=== PATIENT | female | born 1975 | race Caucasian/White ===

== ENCOUNTER 2018-06-29 19:36 | Emergency (ER) | payer OTHER ==
[~2018-06-29] VITALS: Ht 165.1 cm; Wt 81.6 kg
--- OUTSIDE RECORDS SUMMARY | 2018-06-29 19:39 | XMS REPORT | Continuity of Care Document ---
Author Author [facility] Interface Address Unknown Phone Unavailable Problems Problem Status Onset Date Classification Date Reported Comments Source Calculus of ureter 05/07/2017 08/06/2017 [facility] Cyclical vomiting, not intractable 05/01/2017 07/31/2017 [facility] INTRACTABLE VOMITING, UTI Active 04/27/2017 [facility] URINARY PAIN Active 04/27/2017 [facility] Intervertebral disc disorders with radiculopathy, lumbosacral region 04/10/2017 07/13/2017 [facility] INTRACTABLE NAUSEA AND VOMITING Active 04/02/2017 [facility] VOMITING Active 04/02/2017 [facility] CP Active 04/24/2016 [facility] ABDOMINAL PAIN Active 07/16/2014 [facility] Urinary tract infection, site not specified 08/06/2017 [facility] Kidney stone Resolved Problem 08/06/2017 [facility] Stent replacement Resolved Problem 08/06/2017 [facility] Cannabis use, unspecified, uncomplicated 07/13/2017 [facility] Essential hypertension 07/13/2017 [facility] Muscle spasm of back 07/13/2017 [facility] Personal history of nicotine dependence 07/13/2017 [facility] Blood clot Resolved Problem 07/20/2014 [facility] Other specified disorders of bladder 08/06/2017 [facility] Noninfective gastroenteritis and colitis, unspecified 08/06/2017 [facility] Crossing vessel and stricture of ureter without hydronephrosis 08/06/2017 [facility] Unspecified urinary incontinence 08/06/2017 [facility] URINARY TRACT INFECTION, SITE NOT SPECIF Active [facility] NAUSEA WITH VOMITING, UNSPECIFIED Active [facility] Medications Medication Details Route Status Patient Instructions Ordering Provider Order Date Source oxybutynin 5 mg oral tablet 5 mg=1 tab, PO, TID, PRN Bladder Spasm, # 15 tab, 0 Refill(s), Pharmacy: [facility] [id number] Active 04/30/2017 [facility] Dilaudid 1 mg, 1 mL, Route: IVP, Drug form: SOLN, ONCE, Dosing Weight 90.909, kg, Start date: 04/30/17 13:56:00 PREPRESS MANAGER, Stop date: 04/30/17 13:56:00 CSTNotes: (Same as: Dilaudid) Inactive 04/30/2017 [facility] Dilaudid 1 mg, Route: IVP, ONCE, Dosing Weight 90.909, kg, Priority: STAT, Start date: 04/30/17 13:54:00 PREPRESS MANAGER, Stop date: 04/30/17 13:54:00 PREPRESS MANAGER Inactive 04/30/2017 [facility] ketOROLAC 30 mg/mL injectable solution 30 mg, 1 mL, Route: IVP, Drug form: INJ, ONCE, Dosing Weight 90.909, kg, Priority: STAT, Start date: 04/30/17 13:54:00 PREPRESS MANAGER, Stop date: 04/30/17 13:54:00 CSTNotes: (Same as:Toradol) IV bolus must be given >15 seconds. Give IM administration slowly and deeply into the muscle. Not for use > 4 days MEDICATION WASTE Product Size: 30 mg Product Wasted: ___ mg Inactive 04/30/2017 [facility] Morphine 4 mg, 1 mL, Route: IVP, Drug form: SOLN, ONCE, Dosing Weight 90.909, kg, Priority: STAT, Start date: 04/30/17 10:01:00 PREPRESS MANAGER, Stop date: 04/30/17 10:01:00 CSTNotes: (Same as:MORPhine Sulfate) Inactive 04/30/2017 [facility] Zofran 4 mg, 2 mL, Route: IVP, Drug form: INJ, ONCE, Dosing Weight 90.909, kg, PRN Nausea, Priority: STAT, Start date: 04/30/17 10:01:00 CSTNotes: (Same as: Zofran) MEDICATION WASTE Product Size: 4 mg Product Wasted: ___ mg Inactive 04/30/2017 [facility] Potassium Chloride 1.33 MEQ/ML Oral Solution 40 mEq, 2 tab, Route: PO, Drug form: ERTAB, ONCE, Dosing Weight 90.909, kg, Priority: NOW, Start date: 04/30/17 7:49:00 PREPRESS MANAGER, Stop date: 04/30/17 7:49:00 CSTNotes: (Same as: K-Dur 20) "Do Not Crush" With food and full glass of water Inactive 04/30/2017 [facility] morphine Sulfate 12 mg, 6 mL, Route: PO, Drug form: SOLN, Q4H, PRN Pain Score 7-10, Start date: 04/29/17 16:37:00 PREPRESS MANAGER, Stop date: 05/29/17 16:36:00 CDTNotes: (Same as:MORPhine Sulfate) No Longer Active 04/29/2017 [facility] morphine Sulfate 12 mg, 6 mL, Route: PO, Drug form: SOLN, Q4H, PRN Pain Score 4-6, Start date: 04/29/17 14:29:00 PREPRESS MANAGER, Duration: 30 day, Stop date: 05/29/17 14:28:00 CDTNotes: (Same as:MORPhine Sulfate) Inactive 04/29/2017 [facility] Morphine 4 mg, 1 mL, Route: IVP, Drug form: SOLN, ONCE, Dosing Weight 90.909, kg, Priority: STAT, Start date: 04/29/17 14:24:00 PREPRESS MANAGER, Stop date: 04/29/17 14:24:00 CSTNotes: (Same as:MORPhine Sulfate) Inactive 04/29/2017 [facility] Fentanyl 50 microgram, Route: IV, Q5Min, Dosing Weight 90.909, kg, PRN Pain Score 7-10, Start date: 04/29/17 13:39:00 PREPRESS MANAGER, Duration: 4 doses or times, Stop date: Limited # of times Inactive 04/29/2017 [facility] Ondansetron 4 mg, Route: IVP, ONCE, Dosing Weight 90.909, kg, PRN Nausea & Vomiting, Start date: 04/29/17 13:38:00 PREPRESS MANAGER Inactive 04/29/2017 [facility] Flumazenil 0.2 mg, Route: IVP, PRN, Dosing Weight 90.909, kg, PRN Benzodiazepine Reversal, Initial dose, Start date: 04/29/17 13:38:00 PREPRESS MANAGER, Duration: 30 day, Stop date: 05/29/17 14:37:00 CDT Inactive 04/29/2017 [facility] Naloxone 0.4 mg, Route: IVP, Q2MIN, Dosing Weight 90.909, kg, PRN Narcotic Reversal, Start date: 04/29/17 13:38:00 PREPRESS MANAGER, Duration: 8 doses or times, Stop date: Limited # of times Inactive 04/29/2017 [facility] Fentanyl 25 microgram, Route: IVP, Q5Min, Dosing Weight 90.909, kg, PRN Pain Score 4-6, Priority: Routine, Start date: 04/29/17 13:38:00 PREPRESS MANAGER, Duration: 4 doses or times, Stop date: Limited # of times Inactive 04/29/2017 [facility] Labetalol 10 mg, Route: IVP, Q5Min, Dosing Weight 90.909, kg, PRN Elevated BP, Start date: 04/29/17 13:38:00 PREPRESS MANAGER, Duration: 5 doses or times, Stop date: Limited # of times Inactive 04/29/2017 [facility] Calcium Chloride 0.0014 MEQ/ML / Potassium Chloride 0.004 MEQ/ML / Sodium Chloride 0.103 MEQ/ML / Sodium Lactate 0.028 MEQ/ML Injectable Solution 1,000 mL, Rate: 100 ml/hr, Infuse over: 10 hr, Route: IV, Dosing Weight 90.909 kg, Total Volume: 1,000, Start date: 04/29/17 13:19:00 PREPRESS MANAGER, Duration: 30 day, Stop date: 05/29/17 13:18:00 CDT, 2.07, m2 No Longer Active 04/29/2017 [facility] oxybutynin 5 mg, 1 tab, Route: PO, Drug form: TAB, TID, Dosing Weight 90.909, kg, PRN Bladder Spasm, Start date: 04/29/17 13:19:00 PREPRESS MANAGER, Duration: 30 day, Stop date: 05/29/17 13:18:00 CDTNotes: Same as: Ditropan) No Longer Active 04/29/2017 [facility] Hydromorphone 1 mg, 0.5 tab, Route: PO, Drug form: TAB, Q3H, Dosing Weight 90.909, kg, PRN Pain Score 7-10, Start date: 04/29/17 13:19:00 PREPRESS MANAGER, Stop date: 05/29/17 13:18:00 CDTNotes: (Same as: Dilaudid) No Longer Active 04/29/2017 [facility] Acetaminophen 650 mg, 2 tab, Route: PO, Drug form: TAB, Q4H, Dosing Weight 90.909, kg, PRN Pain 1-3/Temp > 100.4 F, Start date: 04/29/17 13:19:00 PREPRESS MANAGER, Duration: 30 day, Stop date: 05/29/17 13:18:00 CDTNotes: Do not exceed 4 gm/day. (Same as: Tylenol) No Longer Active 04/29/2017 [facility] acetaminophen-codeine #3 2 tab, Route: PO, Drug Form: TAB, Dosing Weight 90.909, kg, Q4H, PRN Pain Score 4-6, Start date: 04/29/17 13:19:00 PREPRESS MANAGER, Duration: 30 day, Stop date: 05/29/17 13:18:00 CDTNotes: Do not exceed 4gm/day of acetaminophen. (Same as: Tylenol with Codeine # 3) No Longer Active 04/29/2017 [facility] Ondansetron 4 mg, 2 mL, Route: IVP, Drug form: INJ, Q6H, Dosing Weight 90.909, kg, PRN Nausea & Vomiting, Start date: 04/29/17 13:19:00 PREPRESS MANAGER, Duration: 30 day, Stop date: 05/29/17 13:18:00 CDTNotes: (Same as: Zofran) MEDICATION WASTE Product Size: 4 mg Product Wasted: ___ mg No Longer Active 04/29/2017 [facility] dexamethasone (ANES) Route: IV, Drug form: INJ, ONCE, Stop date: 04/29/17 13:13:00 PREPRESS MANAGER Inactive 04/29/2017 [facility] ondansetron (ANES) Route: IV, Drug form: INJ, ONCE, Stop date: 04/29/17 13:13:00 PREPRESS MANAGER Inactive 04/29/2017 [facility] lidocaine (ANES) Route: IV, Drug form: INJ, ONCE, Stop date: 04/29/17 13:03:00 PREPRESS MANAGER Inactive 04/29/2017 [facility] propofol (ANES) Route: IV, Drug form: INJ, ONCE, Stop date: 04/29/17 13:03:00 PREPRESS MANAGER Inactive 04/29/2017 [facility] fentaNYL (ANES) Route: IV, Drug form: INJ, ONCE, Stop date: 04/29/17 13:03:00 PREPRESS MANAGER Inactive 04/29/2017 [facility] midazolam (ANES) Route: IV, Drug form: SOLN, ONCE, Stop date: 04/29/17 13:03:00 PREPRESS MANAGER Inactive 04/29/2017 [facility] Calcium Chloride 0.0014 MEQ/ML / Potassium Chloride 0.004 MEQ/ML / Sodium Chloride 0.103 MEQ/ML / Sodium Lactate 0.028 MEQ/ML Injectable Solution 1,000 mL, Rate: 25 ml/hr, Infuse over: 40 hr, Route: IV, Dosing Weight 90.909 kg, Total Volume: 1,000, Start date: 04/29/17 12:18:00 PREPRESS MANAGER, Duration: 30 day, Stop date: 05/29/17 12:17:00 CDT, 2.07, m2 Inactive 04/29/2017 [facility] Lactated Ringers Injection IV (ANES) 1000 mL Route: IV, Total Volume: 1,000, Start date: 04/29/17 12:15:00 PREPRESS MANAGER, Stop date: 04/29/17 13:15:00 PREPRESS MANAGER Inactive 04/29/2017 [facility] Lactated Ringers IV 1000 mL 1,000 mL, Rate: 40 ml/hr, Infuse over: 25 hr, Route: IV, Dosing Weight 90.909 kg, Total Volume: 1,000, Start date: 04/29/17 12:15:00 PREPRESS MANAGER, Duration: 30 day, Stop date: 05/29/17 12:14:00 CDT, 2.07, m2 Inactive 04/29/2017 [facility] 200 ML Ciprofloxacin 2 MG/ML Injection [Cipro] 400 mg, 200 mL, Route: IVPB, Drug form: INJ, [id number], Dosing Weight 90.909, kg, Start date: 04/29/17 11:00:00 PREPRESS MANAGER, Duration: 1 day, Stop date: 04/29/17 23:00:00 PREPRESS MANAGER, ABX Indication: Surgical ProphylaxisNotes: Do not refrigerate Inactive 04/29/2017 [facility] Rocephin + sterile water 10 mL 1 gm, Route: IV, [id number], Dosing Weight 90.909, kg, Start date: 04/29/17 8:00:00 PREPRESS MANAGER, Duration: 10 day, Stop date: 05/08/17 8:00:00 PREPRESS MANAGER, ABX Indication: Infectious DiarrheaNotes: (Same As: Rocephin). Use with 100 mL NS and infuse over 30 min MEDICATION WASTE Product Size: 1000 mg Product Wasted: ___ mg No Longer Active 04/29/2017 [facility] Potassium Chloride 10 mEq, 5 mL, Route: IVPB, Q1H, Dosing Weight 90.909, kg, Total Dose=40 mEq; Peripheral Line, Start date: 04/28/17 13:00:00 PREPRESS MANAGER, Duration: 4 doses or times, Stop date: 04/28/17 16:00:00 CSTNotes: MUST be Diluted before use (Same as: KCl) MEDICATION WASTE Product Size: 40 mEq Product Wasted: ___ mEq Inactive 04/28/2017 [facility] Zofran 4 mg, 2 mL, Route: IVP, Drug form: INJ, Q4H, Dosing Weight 90.909, kg, PRN Nausea, Start date: 04/28/17 9:01:00 PREPRESS MANAGER, Duration: 30 day, Stop date: 05/28/17 9:00:00 CDTNotes: (Same as: Zofran) MEDICATION WASTE Product Size: 4 mg Product Wasted: ___ mg No Longer Active 04/28/2017 [facility] Docusate 100 mg, 1 cap, Route: PO, Drug form: CAP, BID, Dosing Weight 90.909, kg, Start date: 04/28/17 9:00:00 PREPRESS MANAGER, Duration: 30 day, Stop date: 05/27/17 17:00:00 CDTNotes: (Same as: Colace) (Do Not Crush) No Longer Active 04/28/2017 [facility] Potassium Chloride 10 mEq, 5 mL, Route: IVPB, Q1H, Dosing Weight 90.909, kg, Total Dose=20 meq, Start date: 04/28/17 7:00:00 PREPRESS MANAGER, Duration: 2 doses or times, Stop date: 04/28/17 8:00:00 PREPRESS MANAGER, Peripheral LineNotes: MUST be Diluted before use (Same as: KCl) MEDICATION WASTE Product Size: 40 mEq Product Wasted: ___ mEq Inactive 04/28/2017 [facility] Flagyl 500 mg, 100 mL, Route: IVPB, Drug form: INJ, [id number], Dosing Weight 90.909, kg, Start date: 04/28/17 7:00:00 PREPRESS MANAGER, Duration: 10 day, Stop date: 05/07/17 23:00:00 PREPRESS MANAGER, ABX Indication: Infectious DiarrheaNotes: (Same as: Flagyl) Avoid alcohol. No Longer Active 04/28/2017 [facility] Rocephin 1 gm, Route: IV, [id number], Dosing Weight 90.909, kg, Start date: 04/28/17 7:00:00 PREPRESS MANAGER, Duration: 10 day, Stop date: 05/07/17 7:00:00 PREPRESS MANAGER, ABX Indication: Infectious DiarrheaNotes: (Same As: Rocephin). Use with 100 mL NS and infuse over 30 min MEDICATION WASTE Product Size: 1000 mg Product Wasted: ___ mg Inactive 04/28/2017 [facility] Acetaminophen 325 MG / Hydrocodone Bitartrate 5 MG Oral Tablet 2 tab, Route: PO, Drug Form: TAB, Dosing Weight 90.909, kg, Q4H, PRN Pain Score 7-10, Start date: 04/28/17 6:35:00 PREPRESS MANAGER, Duration: 30 day, Stop date: 05/28/17 6:34:00 CDTNotes: (Same as: [place] 325/5) Do not exceed 4gm/day of acetaminophen. No Longer Active 04/28/2017 [facility] Saline Flush 0.9% 10 ml, Route: IVP, Drug Form: INJ, Dosing Weight 90.909, kg, PRN, PRN Line Flush, Start date: 04/28/17 6:35:00 PREPRESS MANAGER, Duration: 30 day, Stop date: 05/28/17 7:34:00 CDTNotes: (Same as: BD Posiflush) No Longer Active 04/28/2017 [facility] Sodium Chloride 0.9% IV 1,000 mL 1,000 mL, Rate: 125 ml/hr, Infuse over: 8 hr, Route: IV, Dosing Weight 90.909 kg, Total Volume: 1,000, Start date: 04/28/17 6:35:00 PREPRESS MANAGER, Duration: 30 day, Stop date: 05/28/17 6:34:00 CDT, 2.07, m2 No Longer Active 04/28/2017 [facility] Sodium Chloride 0.9% IV 1,000 mL 1,000 mL, Rate: 100 ml/hr, Infuse over: 10 hr, Route: IV, Dosing Weight 90.909 kg, Total Volume: 1,000, Start date: 04/28/17 5:02:00 PREPRESS MANAGER, Duration: 30 day, Stop date: 05/28/17 5:01:00 CDT, 2.07, m2 No Longer Active 04/28/2017 [facility] Flagyl 500 mg, 100 mL, Route: IVPB, Drug form: INJ, ONCE, Dosing Weight 90.909, kg, Priority: STAT, Start date: 04/28/17 4:45:00 PREPRESS MANAGER, Stop date: 04/28/17 4:45:00 PREPRESS MANAGER, ABX Indication: Infectious DiarrheaNotes: (Same as: Flagyl) Avoid alcohol. Inactive 04/28/2017 [facility] Ceftriaxone 1 gm, Route: IVPB, ONCE, Dosing Weight 90.909, kg, Priority: STAT, Start date: 04/28/17 4:45:00 PREPRESS MANAGER, Stop date: 04/28/17 4:45:00 PREPRESS MANAGER, ABX Indication: Urinary Tract Infection Inactive 04/28/2017 [facility] Potassium Chloride 10 mEq, 5 mL, Route: IVPB, Q1H, Dosing Weight 90.909, kg, Total Dose=20 meq, Start date: 04/28/17 3:00:00 PREPRESS MANAGER, Duration: 2 doses or times, Stop date: 04/28/17 4:00:00 PREPRESS MANAGER, Peripheral LineNotes: MUST be Diluted before use (Same as: KCl) MEDICATION WASTE Product Size: 40 mEq Product Wasted: 30 mEq Inactive 04/28/2017 [facility] Metoclopramide 10 mg, Route: IVP, Drug form: INJ, ONCE, Dosing Weight 90.909, kg, Priority: STAT, Start date: 04/28/17 2:29:00 PREPRESS MANAGER, Stop date: 04/28/17 2:29:00 PREPRESS MANAGER Inactive 04/28/2017 [facility] Famotidine 20 mg, Route: IVP, ONCE, Dosing Weight 90.909, kg, Priority: STAT, Start date: 04/28/17 2:29:00 PREPRESS MANAGER, Stop date: 04/28/17 2:29:00 PREPRESS MANAGER Inactive 04/28/2017 [facility] Sodium Chloride 0.9% (Bolus) IV 1,000 mL, Infuse Over: 1 hr, Route: IV, ONCE, Priority: STAT, Dosing Weight 90.909 kg, Start date: 04/28/17 2:29:00 PREPRESS MANAGER, Stop date: 04/28/17 2:29:00 PREPRESS MANAGER Inactive 04/28/2017 [facility] Saline Flush 0.9% 10 mL, Route: IVP, Drug Form: INJ, Dosing Weight 90.909, kg, PRN, PRN Line Flush, Start date: 04/27/17 19:42:00 PREPRESS MANAGER, Duration: 30 day, Stop date: 05/27/17 20:41:00 CDTNotes: (Same as: BD Posiflush) No Longer Active 04/28/2017 [facility] Cephalexin 500 MG Oral Capsule [Keflex] 500 mg=1 cap, PO, TID, X 7 day, # 21 cap, 0 Refill(s), Pharmacy: [facility] [id number] No Longer Active 04/25/2017 [facility] Promethazine Hydrochloride 25 MG Rectal Suppository [Phenergan] 25 mg=1 supp, SC, Q6H, PRN Nausea & Vomiting, # 20 supp, 0 Refill(s), Pharmacy: [facility] [id number] Active 04/25/2017 [facility] Phenergan 12.5 mg, 0.5 mL, Route: IVPB, ONCE, Dosing Weight 90.909, kg, Priority: STAT, Start date: 04/24/17 19:18:00 PREPRESS MANAGER, Stop date: 04/24/17 19:18:00 CSTNotes: Do not give IV push. (Same as: Phenergan) Inactive 04/25/2017 [facility] ketOROLAC 15 mg/mL injectable solution 15 mg, Route: IM, Q6H, Dosing Weight 90.909, kg, Start date: 04/24/17 18:00:00 PREPRESS MANAGER, Duration: 4 day, Stop date: 04/28/17 12:00:00 PREPRESS MANAGER Inactive 04/25/2017 [facility] ketOROLAC 15 mg/mL injectable solution 15 mg, Route: IVP, Drug form: INJ, ONCE, Dosing Weight 90.909, kg, Priority: STAT, Start date: 04/24/17 16:45:00 PREPRESS MANAGER, Stop date: 04/24/17 16:45:00 PREPRESS MANAGER Inactive 04/24/2017 [facility] Phenergan 12.5 mg, 0.5 mL, Route: IVPB, ONCE, Dosing Weight 88.636, kg, Priority: STAT, Start date: 04/24/17 15:52:00 PREPRESS MANAGER, Stop date: 04/24/17 15:52:00 CSTNotes: Do not give IV push. (Same as: Phenergan) Inactive 04/24/2017 [facility] Sodium Chloride 0.9% (Bolus) IV 1,000 mL, 1000 ml/hr, Infuse Over: 1 hr, Route: IV, 1,000, Drug form: INJ, ONCE, Priority: STAT, Dosing Weight 88.636 kg, Start date: 04/24/17 15:52:00 PREPRESS MANAGER, Stop date: 04/24/17 15:52:00 PREPRESS MANAGER Inactive 04/24/2017 [facility] Saline Flush 0.9% 10 mL, Route: IVP, Drug Form: INJ, Dosing Weight 88.636, kg, PRN, PRN Line Flush, Start date: 04/24/17 15:45:00 PREPRESS MANAGER, Duration: 30 day, Stop date: 05/24/17 16:44:00 CDTNotes: (Same as: BD Posiflush) Inactive 04/24/2017 [facility] Acetaminophen 325 MG / Hydrocodone Bitartrate 10 MG Oral Tablet [[place] 10/325] See Instructions, PRN Pain Score 7-10, 1-2 tab PO Q4-6H as needed, # 120 tab, 0 Refill(s), given to patient No Longer Active 04/06/2017 [facility] cyclobenzaprine 10 mg oral tablet 10 mg=1 tab, PO, TID, PRN Spasm, X 10 day, # 30 tab, 0 Refill(s), Pharmacy: [facility] [id number] No Longer Active 04/06/2017 [facility] Fentanyl 50 microgram, 1 mL, Route: IVP, Drug form: INJ, Q5Min, Dosing Weight 88.636, kg, PRN Pain Score 4-6, Start date: 04/05/17 19:25:00 PREPRESS MANAGER, Duration: 4 doses or times, Stop date: 04/05/17 22:00:00 PREPRESS MANAGER, Pedi atric DosingNotes: (Same as: Sublimaze) Preservative free. Inactive 04/06/2017 [facility] Zofran 4 mg, Route: IVP, Drug form: INJ, ONCE, Dosing Weight 88.636, kg, Start date: 04/05/17 19:03:00 PREPRESS MANAGER, Stop date: 04/05/17 19:03:00 PREPRESS MANAGER Inactive 04/06/2017 [facility] Fentanyl 50 microgram, Route: IV, ONCE, Dosing Weight 88.636, kg, Start date: 04/05/17 19:02:00 PREPRESS MANAGER, Stop date: 04/05/17 19:02:00 PREPRESS MANAGER Inactive 04/06/2017 [facility] fentaNYL (ANES) Route: IV, Drug form: INJ, ONCE, Stop date: 04/05/17 18:47:00 PREPRESS MANAGER Inactive 04/06/2017 [facility] famotidine (ANES) Route: IV, Drug form: INJ, ONCE, Stop date: 04/05/17 18:34:00 PREPRESS MANAGER Inactive 04/06/2017 [facility] neostigmine (ANES) Route: IV, Drug form: INJ, ONCE, Stop date: 04/05/17 18:34:00 PREPRESS MANAGER Inactive 04/06/2017 [facility] glycopyrrolate (ANES) Route: IV, Drug form: INJ, ONCE, Stop date: 04/05/17 18:34:00 PREPRESS MANAGER Inactive 04/06/2017 [facility] esmolol (ANES) Route: IV, Drug form: INJ, ONCE, Stop date: 04/05/17 18:32:00 PREPRESS MANAGER Inactive 04/06/2017 [facility] dexamethasone (ANES) Route: IV, Drug form: INJ, ONCE, Stop date: 04/05/17 18:32:00 PREPRESS MANAGER Inactive 04/06/2017 [facility] lidocaine (ANES) Route: IV, Drug form: INJ, ONCE, Stop date: 04/05/17 18:32:00 PREPRESS MANAGER Inactive 04/06/2017 [facility] ceFAZolin (ANES) Route: IV, Drug form: INJ, ONCE, Stop date: 04/05/17 18:32:00 PREPRESS MANAGER Inactive 04/06/2017 [facility] propofol (ANES) Route: IV, Drug form: INJ, ONCE, Stop date: 04/05/17 18:32:00 PREPRESS MANAGER Inactive 04/06/2017 [facility] rocuronium (ANES) Route: IV, Drug form: INJ, ONCE, Stop date: 04/05/17 18:32:00 PREPRESS MANAGER Inactive 04/06/2017 [facility] fentaNYL (ANES) Route: IV, Drug form: INJ, ONCE, Stop date: 04/05/17 18:32:00 PREPRESS MANAGER Inactive 04/06/2017 [facility] Dilaudid 4 mg, 1 tab, Route: PO, Drug form: TAB, Q2H, Dosing Weight 88.636, kg, PRN Pain Score 7-10, Start date: 04/05/17 18:27:00 PREPRESS MANAGER, Stop date: 04/06/17 18:26:00 CSTNotes: (Same as: Dilaudid) No Longer Active 04/06/2017 [facility] ondansetron (ANES) Route: IV, Drug form: INJ, ONCE, Stop date: 04/05/17 18:27:00 PREPRESS MANAGER Inactive 04/06/2017 [facility] Acetaminophen 325 MG / Hydrocodone Bitartrate 10 MG Oral Tablet [[place] 10/325] 2 tab, Route: PO, Drug Form: TAB, Dosing Weight 88.636, kg, Q4H, PRN Pain Score 4-6, Start date: 04/05/17 18:27:00 PREPRESS MANAGER, Duration: 30 day, Stop date: 05/05/17 18:26:00 CSTNotes: Do not exceed 4gm/day of acetaminophen. (Same as: [place] 325/10) No Longer Active 04/06/2017 [facility] midazolam (ANES) Route: IV, Drug form: SOLN, ONCE, Stop date: 04/05/17 17:57:00 PREPRESS MANAGER Inactive 04/05/2017 [facility] acetaminophen (ANES) 10 mg Route: IV, Drug form: INJ, Start date: 04/05/17 17:56:00 PREPRESS MANAGER, Stop date: 04/05/17 18:56:00 PREPRESS MANAGER Inactive 04/05/2017 [facility] Lactated Ringers Injection IV (ANES) 1000 mL Route: IV, Total Volume: 1,000, Start date: 04/05/17 17:22:00 PREPRESS MANAGER, Stop date: 04/05/17 18:22:00 PREPRESS MANAGER Inactive 04/05/2017 [facility] 72 HR Scopolamine 0.0139 MG/HR Transdermal Patch 1 patch, Route: TOP, Drug Form: ERFILM, Dosing Weight 88.636, kg, PRE OP, Start date: 04/05/17 16:00:00 PREPRESS MANAGER, Duration: 30 day, Stop date: 05/05/17 15:59:00 PREPRESS MANAGER Inactive 04/05/2017 [facility] Versed 2 mg, Route: IVP, ONCE, Dosing Weight 88.636, kg, Start date: 04/05/17 15:49:00 PREPRESS MANAGER, Stop date: 04/05/17 15:49:00 PREPRESS MANAGER Inactive 04/05/2017 [facility] LR IV 1,000 mL 1,000 mL, Rate: 40 ml/hr, Infuse over: 25 hr, Route: IV, Dosing Weight 88.636 kg, Total Volume: 1,000, Start date: 04/05/17 15:26:00 PREPRESS MANAGER, Duration: 30 day, Stop date: 05/05/17 15:25:00 PREPRESS MANAGER, 2.04, m2 No Longer Active 04/05/2017 [facility] Dilaudid 0.5 mg, 0.5 mL, Route: IV, Drug form: INJ, Q4H, Dosing Weight 88.636, kg, PRN Pain Score 7-10, Start date: 04/05/17 2:34:00 PREPRESS MANAGER, Stop date: 05/05/17 2:33:00 CSTNotes: Same as: Dilaudid Inactive 04/05/2017 [facility] morphine Sulfate 12 mg, 6 mL, Route: PO, Drug form: SOLN, Q4H, PRN Pain Score 7-10, Start date: 04/04/17 10:16:00 [employer], Duration: 30 day, Stop date: 05/04/17 10:15:00 CSTNotes: (Same as:MORPhine Sulfate) No Longer Active 04/04/2017 [facility] Acetaminophen 325 MG / Hydrocodone Bitartrate 7.5 MG Oral Tablet [[place] 7.5/325] 1 tab, Route: PO, Drug Form: TAB, Dosing Weight 88.636, kg, Q4H, PRN Pain Score 4-6, Start date: 04/03/17 14:08:00 PREPRESS MANAGER, Duration: 30 day, Stop date: 05/03/17 14:07:00 CSTNotes: Same as [place] 325-7.5mg Do not exceed 4gm/day of acetaminophen. No Longer Active 04/03/2017 [facility] Docusate 100 mg, 1 cap, Route: PO, Drug form: CAP, BID, Dosing Weight 88.636, kg, Start date: 04/03/17 9:00:00 PREPRESS MANAGER, Duration: 30 day, Stop date: 05/02/17 17:00:00 CSTNotes: (Same as: Colace) (Do Not Crush) No Longer Active 04/03/2017 [facility] Morphine 4 mg, 1 mL, Route: IVP, Drug form: SOLN, Q4H, Dosing Weight 88.636, kg, PRN Pain Score 7-10, Start date: 04/02/17 21:14:00 PREPRESS MANAGER, Duration: 30 day, Stop date: 05/02/17 21:13:00 CSTNotes: (Same as:MORPhine Sulfate) No Longer Active 04/03/2017 [facility] Flexeril 10 mg, 1 tab, Route: PO, Drug form: TAB, TID, Dosing Weight 88.636, kg, PRN Spasm, Start date: 04/02/17 21:13:00 PREPRESS MANAGER, Duration: 30 day, Stop date: 05/02/17 21:12:00 CSTNotes: (Same As: Flexeril) No Longer Active 04/03/2017 [facility] Saline Flush 0.9% 10 ml, Route: IVP, Drug Form: INJ, Dosing Weight 88.636, kg, PRN, PRN Line Flush, Start date: 04/02/17 21:10:00 PREPRESS MANAGER, Duration: 30 day, Stop date: 05/02/17 21:09:00 CSTNotes: (Same as: BD Posiflush) Inactive 04/03/2017 [facility] Dextrose 5% with 0.45% NaCl IV 1,000 mL 1,000 mL, Rate: 75 ml/hr, Infuse over: 13.3 hr, Route: IV, Dosing Weight 88.636 kg, Total Volume: 1,000, Start date: 04/02/17 21:10:00 PREPRESS MANAGER, Duration: 30 day, Stop date: 05/02/17 21:09:00 PREPRESS MANAGER, 2.04, m2 No Longer Active 04/03/2017 [facility] Acetaminophen 650 mg, 2 tab, Route: PO, Drug form: TAB, Q4H, Dosing Weight 88.636, kg, PRN Pain 1-3/Temp > 100.4 F, Start date: 04/02/17 21:10:00 PREPRESS MANAGER, Duration: 30 day, Stop date: 05/02/17 21:09:00 CSTNotes: Do not exceed 4 gm/day. (Same as: Tylenol) No Longer Active 04/03/2017 [facility] Ondansetron 4 mg, 2 mL, Route: IVP, Drug form: INJ, Q6H, Dosing Weight 88.636, kg, PRN Nausea & Vomiting, Start date: 04/02/17 21:10:00 PREPRESS MANAGER, Duration: 30 day, Stop date: 05/02/17 21:09:00 CSTNotes: (Same as: Zofran) MEDICATION WASTE Product Size: 4 mg Product Wasted: ___ mg No Longer Active 04/03/2017 [facility] Morphine 4 mg, 1 mL, Route: IVP, Drug form: SOLN, Q4H, Dosing Weight 88.636, kg, PRN Pain Score 7-10, Start date: 04/02/17 21:02:00 PREPRESS MANAGER, Duration: 30 day, Stop date: 05/02/17 21:01:00 CSTNotes: (Same as:MORPhine Sulfate) Inactive 04/03/2017 [facility] Phenergan 25 mg, Route: IVPB, ONCE, Dosing Weight 88.636, kg, Priority: STAT, Start date: 04/02/17 13:17:00 PREPRESS MANAGER, Stop date: 04/02/17 13:17:00 PREPRESS MANAGER Inactive 04/02/2017 [facility] Valium 5 mg, 1 mL, Route: IVP, Drug form: INJ, ONCE, Dosing Weight 88.636, kg, Priority: STAT, Start date: 04/02/17 12:06:00 PREPRESS MANAGER, Stop date: 04/02/17 12:06:00 CSTNotes: WASTE: F/P - Black; E - White/Blue Inactive 04/02/2017 [facility] Valium 5 mg, 1 mL, Route: IVP, Drug form: INJ, ONCE, Dosing Weight 88.636, kg, Priority: STAT, Start date: 04/02/17 11:53:00 PREPRESS MANAGER, Stop date: 04/02/17 11:53:00 CSTNotes: (Same as: Valium) Inactive 04/02/2017 [facility] Reglan 10 mg, 2 mL, Route: IVP, Drug form: SOLN, ONCE, Dosing Weight 88.636, kg, Priority: STAT, Start date: 04/02/17 11:24:00 PREPRESS MANAGER, Stop date: 04/02/17 11:24:00 CSTNotes: (Same as: Reglan) Inactive 04/02/2017 [facility] Valium 5 mg, 1 mL, Route: IVP, Drug form: INJ, ONCE, Dosing Weight 88.636, kg, Priority: STAT, Start date: 04/02/17 11:24:00 PREPRESS MANAGER, Stop date: 04/02/17 11:24:00 CSTNotes: (Same as: Valium) WASTE: F/P - Black; E - White/Blue Inactive 04/02/2017 [facility] Phenergan 25 mg, Route: IVPB, ONCE, Dosing Weight 88.636, kg, Priority: STAT, Start date: 04/02/17 10:08:00 PREPRESS MANAGER, Stop date: 04/02/17 10:08:00 PREPRESS MANAGER Inactive 04/02/2017 [facility] Zofran 4 mg, Route: IVP, Drug form: INJ, ONCE, Dosing Weight 88.636, kg, Priority: STAT, Start date: 04/02/17 9:20:00 PREPRESS MANAGER, Stop date: 04/02/17 9:20:00 PREPRESS MANAGER Inactive 04/02/2017 [facility] Fentanyl 50 microgram, Route: IVP, ONCE, Dosing Weight 88.636, kg, Priority: STAT, Start date: 04/02/17 9:20:00 PREPRESS MANAGER, Stop date: 04/02/17 9:20:00 PREPRESS MANAGER Inactive 04/02/2017 [facility] Dexamethasone 10 mg, Route: IVP, ONCE, Dosing Weight 88.636, kg, Priority: STAT, Start date: 04/02/17 8:35:00 PREPRESS MANAGER, Stop date: 04/02/17 8:35:00 PREPRESS MANAGER Inactive 04/02/2017 [facility] Acetaminophen 325 MG / Hydrocodone Bitartrate 10 MG Oral Tablet [[place] 10/325] 1 tab, Route: PO, Drug Form: TAB, Dosing Weight 88.636, kg, ONCE, STAT, Start date: 04/02/17 8:34:00 PREPRESS MANAGER, Stop date: 04/02/17 8:34:00 PREPRESS MANAGER Inactive 04/02/2017 [facility] Dexamethasone 10 mg, Route: IM, ONCE, Dosing Weight 88.636, kg, Priority: STAT, Start date: 04/02/17 8:34:00 PREPRESS MANAGER, Stop date: 04/02/17 8:34:00 PREPRESS MANAGER Inactive 04/02/2017 [facility] Famotidine 20 mg, Route: IVP, ONCE, Dosing Weight 88.636, kg, Priority: STAT, Start date: 04/02/17 8:11:00 PREPRESS MANAGER, Stop date: 04/02/17 8:11:00 PREPRESS MANAGER Inactive 04/02/2017 [facility] Ondansetron 4 mg, Route: IVP, ONCE, Dosing Weight 88.636, kg, Priority: STAT, Start date: 04/02/17 8:11:00 PREPRESS MANAGER, Stop date: 04/02/17 8:11:00 PREPRESS MANAGER Inactive 04/02/2017 [facility] Ketorolac 30 mg, Route: IVP, ONCE, Dosing Weight 88.636, kg, Priority: STAT, Start date: 04/02/17 8:11:00 PREPRESS MANAGER, Stop date: 04/02/17 8:11:00 PREPRESS MANAGER Inactive 04/02/2017 [facility] Saline Flush 0.9% 10 mL, Route: IVP, Drug Form: INJ, Dosing Weight 88.636, kg, PRN, PRN Line Flush, Start date: 04/02/17 8:11:00 PREPRESS MANAGER, Duration: 30 day, Stop date: 05/02/17 8:10:00 CSTNotes: Same as: BD Posiflush Sterile No Longer Active 04/02/2017 [facility] Sodium Chloride 0.9% (Bolus) IV 1,000 mL, Infuse Over: 1 hr, Route: IV, ONCE, Priority: STAT, Dosing Weight 88.636 kg, Start date: 04/02/17 8:11:00 PREPRESS MANAGER, Stop date: 04/02/17 8:11:00 PREPRESS MANAGER Inactive 04/02/2017 [facility] Topamax 50 mg, 1 tab, Route: PO, Drug form: TAB, Bedtime, Dosing Weight 88.636, kg, Start date: 07/17/14 21:00:00, Duration: 30 day, Stop date: 08/15/14 21:00:00 Inactive 07/18/2014 [facility] topiramate 50 MG Oral Tablet [Topamax] 50 mg, PO, Bedtime, # 30 tab, 0 Refill(s) Active 07/17/2014 [facility] dronabinol 2.5 mg oral capsule 2.5 mg=1 cap, PO, BID, X 14 day, # 28 cap, 0 Refill(s) Active 07/17/2014 [facility] 72 HR Scopolamine 0.0139 MG/HR Transdermal Patch 1.5 mg=1 patch, TOP, Q72H, # 4 patch, 0 Refill(s) Active 07/17/2014 [facility] promethazine 12.5 mg oral tablet 12.5 mg=1 tab, PO, Q6H, PRN as needed for nausea/vomiting, X 7 day, # 28 tab, 0 Refill(s) Active 07/17/2014 [facility] Marinol 2.5 mg, 1 cap, Route: PO, Drug form: CAP, [id number], Dosing Weight 88.636, kg, Start date: 07/17/14 10:00:00, Duration: 30 day, Stop date: 08/15/14 22:00:00Notes: (Same as: Marinol) Non-Formulary Drug. Inactive 07/17/2014 [facility] Ativan 1 mg, 1 tab, Route: PO, Drug form: TAB, TID, Dosing Weight 88.636, kg, PRN Anxiety, Start date: 07/17/14 9:38:00, Duration: 30 day, Stop date: 08/16/14 9:37:00Notes: (Same as: Ativan) Inactive 07/17/2014 [facility] 72 HR Scopolamine 0.0139 MG/HR Transdermal Patch 1 patch, Route: TOP, Drug Form: ERFILM, Dosing Weight 88.636, kg, Q72H, Start date: 07/17/14 9:00:00, Duration: 30 day, Stop date: 08/13/14 9:00:00Notes: Change patch every 72 hours (Same as: Transderm-Scop) Inactive 07/17/2014 [facility] normal saline 0.9% IV 1,000 mL 1,000 mL, Rate: 100 ml/hr, Infuse over: 10 hr, Route: IV, Dosing Weight 88.636 kg, Total Volume: 1,000, Start date: 07/16/14 21:45:00, Duration: 30 day, Stop date: 08/15/14 21:44:00 No Longer Active 07/17/2014 [facility] Saline Flush 0.9% 10 ml, Route: IVP, Drug Form: INJ, Dosing Weight 88.636, kg, PRN, PRN Line Flush, Start date: 07/16/14 21:37:00, Duration: 30 day, Stop date: 08/15/14 21:36:00Notes: (Same as: BD Posiflush) No Longer Active 07/17/2014 [facility] Reglan 10 mg, 2 mL, Route: IVP, Drug form: INJ, Q6H, Dosing Weight 88.636, kg, PRN as needed for nausea/vomiting, Priority: STAT, Start date: 07/16/14 21:37:00, Duration: 30 day, Stop date: 08/15/14 21:36:00Notes: (Same as: Reglan) No Longer Active 07/17/2014 [facility] Promethazine 12.5 mg, 1 tab, Route: PO, Drug form: TAB, Q6H, Dosing Weight 88.636, kg, PRN as needed for nausea/vomiting, Start date: 07/16/14 21:37:00, Duration: 30 day, Stop date: 08/15/14 21:36:00Notes: (Same as: Phenergan) No Longer Active 07/17/2014 [facility] Ondansetron 4 mg, 2 mL, Route: IVP, Drug form: INJ, Q8H, Dosing Weight 88.636, kg, PRN Nausea & Vomiting, Start date: 07/16/14 21:37:00, Duration: 30 day, Stop date: 08/15/14 21:36:00Notes: (Same as: Zofran) MEDICATION WASTE Product Size: 4 mg Product Wasted: _0__ mg No Longer Active 07/17/2014 [facility] Protonix PO, Daily, # 30 tab, 0 Refill(s) Active 07/17/2014 [facility] Allergies, Adverse Reactions, Alerts Substance Category Reaction Severity Reaction type Status Date Reported Comments Source Immunizations Immunization Date Given Site Status Last Updated Comments Source Results Order Name Results Value Reference Range Date Interpretation Comments Source CHEM PANEL eGFR 102 mL/min/1.73m2 04/30/2017 Result Comment: The eGFR is calculated using the CKD-EPI formula. In most young, healthy individuals the eGFR will be >90 mL/min/1.73m2. The eGFR declines with age. An eGFR of 60-89 may be normal in some populations, particularly the elderly, for whom the CKD-EPI formula has not been extensively validated. Use of the eGFR is not recommended in the following populations: Individuals with unstable creatinine concentrations, including patients and those with serious co-morbid conditions. Patients with extremes in muscle mass or diet. The data above are obtained from the National Kidney Disease Education Program (NKDEP) which additionally recommends that when the eGFR is used in patients with extremes of body mass index for purposes of drug dosing, the eGFR should be multiplied by the estimated BMI. [facility] CHEM PANEL Chloride Lvl 105 meq/L 95 - 109 04/30/2017 [facility] CHEM PANEL CO2 25 meq/L 24 - 32 04/30/2017 [facility] CHEM PANEL Calcium Lvl 8.0 mg/dL 8.5 - 10.5 04/30/2017 [facility] CHEM PANEL BUN 8 mg/dL 7 - 22 04/30/2017 [facility] CHEM PANEL Glucose Lvl 92 mg/dL 70 - 99 04/30/2017 [facility] CHEM PANEL Potassium Lvl 3.3 meq/L 3.5 - 5.1 04/30/2017 [facility] CHEM PANEL Creatinine Lvl 0.73 mg/dL 0.50 - 1.40 04/30/2017 [facility] CHEM PANEL Sodium Lvl 141 meq/L 135 - 145 04/30/2017 [facility] CHEM PANEL AGAP 14.3 meq/L 10.0 - 20.0 04/30/2017 [facility] CHEM PANEL Magnesium Lvl 1.9 mg/dL 1.8 - 2.4 04/30/2017 [facility] CHEM PANEL Phosphorus 2.6 mg/dL 2.5 - 4.5 04/30/2017 [facility] HEMATOLOGY Hgb 12.0 g/dL 12.0 - 16.0 04/30/2017 [facility] HEMATOLOGY RBC 3.92 M/CMM 4.20 - 5.40 04/30/2017 [facility] WBC 6.5 K/CMM 3.7 - 10.4 04/30/2017 [facility] Hct 34.3 % 36.0 - 48.0 04/30/2017 [facility] MCHC 35.1 g/dL 32.0 - 36.0 04/30/2017 [facility] MCH 30.7 pg 27.0 - 31.0 04/30/2017 [facility] MCV 87.4 fL 80.0 - 98.0 04/30/2017 [facility] MPV 7.5 fL 7.4 - 10.4 04/30/2017 [facility] Platelet 243 K/CMM 133 - 450 04/30/2017 [facility] RDW 13.1 % 11.5 - 14.5 04/30/2017 [facility] Eosinophils 0.3 % 0.0 - 4.0 04/30/2017 [facility] Monocytes 8.6 % 2.0 - 12.0 04/30/2017 [facility] Lymphocytes 40.7 % 20.0 - 40.0 04/30/2017 [facility] Segs 50.2 % 45.0 - 75.0 04/30/2017 [facility] Monocytes # 0.6 K/CMM 0.0 - 0.8 04/30/2017 [facility] Lymphocytes # 2.7 K/CMM 1.0 - 5.5 04/30/2017 [facility] Segs-Bands # 3.3 K/CMM 1.5 - 8.1 04/30/2017 [facility] Basophils 0.2 % 0.0 - 1.0 04/30/2017 [facility] CHEM PANEL eGFR 99 mL/min/1.73m2 04/29/2017 Result Comment: The eGFR is calculated using the CKD-EPI formula. In most young, healthy individuals the eGFR will be >90 mL/min/1.73m2. The eGFR declines with age. An eGFR of 60-89 may be normal in some populations, particularly the elderly, for whom the CKD-EPI formula has not been extensively validated. Use of the eGFR is not recommended in the following populations: Individuals with unstable creatinine concentrations, including patients and those with serious co-morbid conditions. Patients with extremes in muscle mass or diet. The data above are obtained from the National Kidney Disease Education Program (NKDEP) which additionally recommends that when the eGFR is used in patients with extremes of body mass index for purposes of drug dosing, the eGFR should be multiplied by the estimated BMI. [facility] CHEM PANEL Calcium Lvl 7.8 mg/dL 8.5 - 10.5 04/29/2017 [facility] CHEM PANEL Total Protein 5.6 g/dL 6.4 - 8.4 04/29/2017 [facility] CHEM PANEL B/C Ratio 16 6 - 25 04/29/2017 [facility] CHEM PANEL CO2 25 meq/L 24 - 32 04/29/2017 [facility] CHEM PANEL Globulin 2.8 g/dL 2.7 - 4.2 04/29/2017 [facility] CHEM PANEL Albumin Lvl 2.8 g/dL 3.5 - 5.0 04/29/2017 [facility] CHEM PANEL Alk Phos 87 unit/L 39 - 136 04/29/2017 [facility] CHEM PANEL Bili Total 0.3 mg/dL 0.2 - 1.3 04/29/2017 [facility] CHEM PANEL Sodium Lvl 143 meq/L 135 - 145 04/29/2017 [facility] CHEM PANEL Chloride Lvl 108 meq/L 95 - 109 04/29/2017 [facility] CHEM PANEL Potassium Lvl 3.5 meq/L 3.5 - 5.1 04/29/2017 [facility] CHEM PANEL AGAP 13.5 meq/L 10.0 - 20.0 04/29/2017 [facility] CHEM PANEL ALT 68 unit/L 0 - 65 04/29/2017 [facility] CHEM PANEL A/G Ratio 1.0 0.7 - 1.6 04/29/2017 [facility] CHEM PANEL AST 15 unit/L 0 - 37 04/29/2017 [facility] CHEM PANEL Creatinine Lvl 0.75 mg/dL 0.50 - 1.40 04/29/2017 [facility] CHEM PANEL Glucose Lvl 90 mg/dL 70 - 99 04/29/2017 [facility] CHEM PANEL BUN 12 mg/dL 7 - 22 04/29/2017 [facility] CHEM PANEL Phosphorus 3.2 mg/dL 2.5 - 4.5 04/29/2017 [facility] CHEM PANEL Magnesium Lvl 2.0 mg/dL 1.8 - 2.4 04/29/2017 [facility] HEMATOLOGY Lymphocytes 56.7 % 20.0 - 40.0 04/29/2017 [facility] HEMATOLOGY Monocytes 10.1 % 2.0 - 12.0 04/29/2017 [facility] HEMATOLOGY Eosinophils 1.8 % 0.0 - 4.0 04/29/2017 [facility] HEMATOLOGY Basophils 0.6 % 0.0 - 1.0 04/29/2017 [facility] HEMATOLOGY Monocytes # 0.5 K/CMM 0.0 - 0.8 04/29/2017 [facility] HEMATOLOGY Eosinophils # 0.1 K/CMM 0.0 - 0.5 04/29/2017 [facility] HEMATOLOGY Segs-Bands # 1.6 K/CMM 1.5 - 8.1 04/29/2017 [facility] Lymphocytes # 2.9 K/CMM 1.0 - 5.5 04/29/2017 [facility] Segs 30.8 % 45.0 - 75.0 04/29/2017 [facility] HEMATOLOGY WBC 5.1 K/CMM 3.7 - 10.4 04/29/2017 [facility] RBC 4.00 M/CMM 4.20 - 5.40 04/29/2017 [facility] Hgb 12.1 g/dL 12.0 - 16.0 04/29/2017 [facility] Hct 35.1 % 36.0 - 48.0 04/29/2017 [facility] MCV 87.8 fL 80.0 - 98.0 04/29/2017 [facility] MCH 30.2 pg 27.0 - 31.0 04/29/2017 [facility] MCHC 34.4 g/dL 32.0 - 36.0 04/29/2017 [facility] RDW 12.9 % 11.5 - 14.5 04/29/2017 [facility] Platelet 251 K/CMM 133 - 450 04/29/2017 [facility] MPV 8.2 fL 7.4 - 10.4 04/29/2017 [facility] ELECTROLYTES Potassium Lvl 2.9 meq/L 3.5 - 5.1 04/28/2017 Result Comment: Critical Result(s) called to Estela Boudreaux at 04/28/2017 14:43 by DMF. Read back OK. [facility] CHEM PANEL Glucose Lvl 125 mg/dL 70 - 99 04/28/2017 [facility] CHEM PANEL Chloride Lvl 95 meq/L 95 - 109 04/28/2017 [facility] CHEM PANEL CO2 28 meq/L 24 - 32 04/28/2017 [facility] CHEM PANEL BUN 16 mg/dL 7 - 22 04/28/2017 [facility] CHEM PANEL Creatinine Lvl 1.28 mg/dL 0.50 - 1.40 04/28/2017 [facility] CHEM PANEL Sodium Lvl 135 meq/L 135 - 145 04/28/2017 [facility] CHEM PANEL Total Protein 8.4 g/dL 6.4 - 8.4 04/28/2017 [facility] CHEM PANEL Albumin Lvl 4.6 g/dL 3.5 - 5.0 04/28/2017 [facility] CHEM PANEL AGAP 14.7 meq/L 10.0 - 20.0 04/28/2017 [facility] CHEM PANEL B/C Ratio 12 6 - 25 04/28/2017 [facility] CHEM PANEL A/G Ratio 1.2 0.7 - 1.6 04/28/2017 [facility] CHEM PANEL Calcium Lvl 9.3 mg/dL 8.5 - 10.5 04/28/2017 [facility] CHEM PANEL AST 27 unit/L 0 - 37 04/28/2017 [facility] CHEM PANEL Globulin 3.8 g/dL 2.7 - 4.2 04/28/2017 [facility] CHEM PANEL ALT 136 unit/L 0 - 65 04/28/2017 [facility] CHEM PANEL Bili Total 0.8 mg/dL 0.2 - 1.3 04/28/2017 [facility] CHEM PANEL Alk Phos 128 unit/L 39 - 136 04/28/2017 [facility] CHEM PANEL eGFR 52 mL/min/1.73m2 04/28/2017 Result Comment: The eGFR is calculated using the CKD-EPI formula. In most young, healthy individuals the eGFR will be >90 mL/min/1.73m2. The eGFR declines with age. An eGFR of 60-89 may be normal in some populations, particularly the elderly, for whom the CKD-EPI formula has not been extensively validated. Use of the eGFR is not recommended in the following populations: Individuals with unstable creatinine concentrations, including patients and those with serious co-morbid conditions. Patients with extremes in muscle mass or diet. The data above are obtained from the National Kidney Disease Education Program (NKDEP) which additionally recommends that when the eGFR is used in patients with extremes of body mass index for purposes of drug dosing, the eGFR should be multiplied by the estimated BMI. [facility] CHEM PANEL Lipase Lvl 112 unit/L 73 - 393 04/28/2017 [facility] HEMATOLOGY Basophils # 0.1 K/CMM 0.0 - 0.2 04/28/2017 [facility] HEMATOLOGY Segs 42.8 % 45.0 - 75.0 04/28/2017 [facility] Monocytes 9.5 % 2.0 - 12.0 04/28/2017 [facility] HEMATOLOGY Eosinophils 0.3 % 0.0 - 4.0 04/28/2017 [facility] Lymphocytes 46.6 % 20.0 - 40.0 04/28/2017 [facility] Monocytes # 1.2 K/CMM 0.0 - 0.8 04/28/2017 [facility] Lymphocytes # 5.8 K/CMM 1.0 - 5.5 04/28/2017 [facility] Segs-Bands # 5.4 K/CMM 1.5 - 8.1 04/28/2017 [facility] Basophils 0.8 % 0.0 - 1.0 04/28/2017 [facility] Platelet 392 K/CMM 133 - 450 04/28/2017 [facility] RDW 12.9 % 11.5 - 14.5 04/28/2017 [facility] MCHC 34.6 g/dL 32.0 - 36.0 04/28/2017 [facility] MCH 29.7 pg 27.0 - 31.0 04/28/2017 [facility] MPV 8.1 fL 7.4 - 10.4 04/28/2017 [facility] MCV 85.7 fL 80.0 - 98.0 04/28/2017 [facility] Hct 46.7 % 36.0 - 48.0 04/28/2017 [facility] Hgb 16.1 g/dL 12.0 - 16.0 04/28/2017 [facility] RBC 5.44 M/CMM 4.20 - 5.40 04/28/2017 [facility] WBC 12.5 K/CMM 3.7 - 10.4 04/28/2017 [facility] URINE AND STOOL UA Color Therese 04/28/2017 [facility] URINE AND STOOL UA Urobilinogen 2.0 mg/dL 0.1 - 1.0 04/28/2017 [facility] URINE AND STOOL UA Blood Negative (04/28/17 1:55 AM) Negative 04/28/2017 [facility] URINE AND STOOL UA Nitrite Negative (04/28/17 1:55 AM) Negative 04/28/2017 [facility] URINE AND STOOL UA Turbidity Marked *ABN* (04/28/17 1:55 AM) Clear 04/28/2017 [facility] URINE AND STOOL UA Spec Grav 1.029 <=1.030 04/28/2017 [facility] URINE AND STOOL UA pH 5.0 5.0 - 8.0 04/28/2017 [facility] URINE AND STOOL UA Protein 100 mg/dL Negative mg/dL 04/28/2017 [facility] URINE AND STOOL UA WBC Cast 4 /LPF <=0 /LPF 04/28/2017 [facility] URINE AND STOOL UA Hyal Cast 27 /LPF 0 - 2 04/28/2017 [facility] URINE AND STOOL UA Leuk Est Trace *ABN* (04/28/17 1:55 AM) Negative 04/28/2017 [facility] URINE AND STOOL UA Sq Epi Many /LPF Few /LPF 04/28/2017 [facility] URINE AND STOOL UA WBC 13 /HPF 0 - 5 04/28/2017 [facility] URINE AND STOOL UA Glucose Negative mg/dL Negative mg/dL 04/28/2017 [facility] URINE AND STOOL UA Ketones Trace mg/dL Negative mg/dL 04/28/2017 [facility] URINE AND STOOL UA Bili Small *ABN* (04/28/17 1:55 AM) Negative 04/28/2017 [facility] URINE AND STOOL UA RBC 4 /HPF 0 - 2 04/28/2017 [facility] URINE AND STOOL UA Mucus Many /LPF None Seen /LPF 04/28/2017 [facility] URINE AND STOOL UA Bacteria Moderate /HPF None Seen /HPF 04/28/2017 [facility] URINE CHEM U Preg Negative (04/28/17 1:55 AM) Negative 04/28/2017 [facility] ED Abdomen/Pelvis IV contrast only CT ED Abdomen/Pelvis IV contrast only CT CT ABDOMEN AND PELVIS WITH CONTRAST DATED 04/28/2017.. CLINICAL INDICATION: Acute abdominal pain. Persistent vomiting. COMPARISON: CT abdomen dated 04/02/2017. TECHNIQUE: A CT of the abdomen and pelvis was performed using helical images from the thoracic outlet through the pubic symphysis after the intravenous administration of 75 mL Visipaque 320. The study was ordered without bowel contrast. Sagittal and coronal reconstructions were performed. CT Radiation Dose: JRF=[id number] mGy-cm FINDINGS: SOLID ORGANS: A 2 mm calcified stone is identified in the distal left ureter at the left ureterovesical junction without evidence of acute left renal collecting system obstruction. The left kidney is normal in size and demonstrates normal nephrographic enhancement. No acute CT abnormalities of the liver, spleen, pancreas, adrenal glands or right kidney are identified. There is no evidence of right renal collecting system obstruction or calcified right renal collecting system stone. BILIARY: The patient is status post cholecystectomy. No significant biliary ductal dilatation is identified. BOWEL: Bowel assessment is limited by the absence of bowel contrast. No small bowel dilatation is present to suggest acute obstruction. The appendix is well- visualized and is not acutely inflamed. The presence of increased fluid in the colon is suggestive of an acute diarrheal illness. Portions of the colon appear to demonstrate mild wall thickening, raising concern for infectious or inflammatory colitis. PERITONEUM: No free intraperitoneal air or significant free intraperitoneal fluid. RETROPERITONEUM: The abdominal aorta is normal in caliber. No retroperitoneal mass or adenopathy. PELVIS: The patient is status post hysterectomy. The ovaries are not identified and may be surgically absent. No suspicious adnexal masses are noted. Bladder assessment is limited by low bladder volume. LOWER CHEST: The lung bases appear clear of acute disease. A small hiatal hernia is noted in the lower mediastinum. ADDITIONAL COMMENTS: None. IMPRESSION: 1. A 2 mm calcified stone is identified in the distal left ureter at the left ureterovesical junction without evidence of acute collecting system obstruction. 2. Increased fluid is identified in the colon, suggesting an acute diarrheal illness. Portions of the colon appear to demonstrate mild wall thickening raising concern for infectious or inflammatory colitis. SL:[id number] 04/28/2017 - - Read by: Joe Jurado MD Dictated Date/time: 04/28/17 04:18 Electronically Signed by: Joe Jurado MD 04/28/17 04:30 FINAL REPORT [facility] URINE AND STOOL UA Color Therese 04/24/2017 [facility] URINE AND STOOL UA Glucose Negative mg/dL Negative mg/dL 04/24/2017 [facility] URINE AND STOOL UA Bili Negative *NA* (04/24/17 5:52 PM) Negative 04/24/2017 [facility] URINE AND STOOL UA Ketones 20 mg/dL Negative mg/dL 04/24/2017 [facility] URINE AND STOOL UA Blood Large *ABN* (04/24/17 5:52 PM) Negative 04/24/2017 [facility] URINE AND STOOL UA Urobilinogen 2.0 mg/dL 0.1 - 1.0 04/24/2017 [facility] URINE AND STOOL UA Leuk Est Negative (04/24/17 5:52 PM) Negative 04/24/2017 [facility] URINE AND STOOL UA Nitrite Negative (04/24/17 5:52 PM) Negative 04/24/2017 [facility] URINE AND STOOL UA Protein 100 mg/dL Negative mg/dL 04/24/2017 [facility] URINE AND STOOL UA Sq Epi Many /LPF Few /LPF 04/24/2017 [facility] URINE AND STOOL UA RBC null 0 - 2 04/24/2017 [facility] URINE AND STOOL UA WBC 6 /HPF 0 - 5 04/24/2017 [facility] URINE AND STOOL UA Mucus Many /LPF None Seen /LPF 04/24/2017 [facility] URINE AND STOOL UA Hyal Cast 5 /LPF 0 - 2 04/24/2017 [facility] URINE AND STOOL UA Turbidity Marked *ABN* (04/24/17 5:52 PM) Clear 04/24/2017 [facility] URINE AND STOOL UA Spec Grav 1.032 <=1.030 04/24/2017 [facility] URINE AND STOOL UA pH 5.0 5.0 - 8.0 04/24/2017 [facility] URINE CHEM U Preg Negative (04/24/17 5:52 PM) Negative 04/24/2017 [facility] CARDIAC ENZYMES CK MB Index 1.3 0.0 - 2.5 04/24/2017 [facility] CARDIAC ENZYMES CK MB 1.0 ng/mL 0.5 - 3.6 04/24/2017 [facility] CARDIAC ENZYMES Total CK 76 unit/L 12 - 191 04/24/2017 [facility] CARDIAC ENZYMES Troponin-I null 0.00 - 0.40 04/24/2017 [facility] CHEM PANEL Lipase Lvl 86 unit/L 73 - 393 04/24/2017 [facility] CHEM PANEL Total Protein 8.7 g/dL 6.4 - 8.4 04/24/2017 [facility] CHEM PANEL Calcium Lvl 9.5 mg/dL 8.5 - 10.5 04/24/2017 [facility] CHEM PANEL ALT 234 unit/L 0 - 65 04/24/2017 [facility] CHEM PANEL Albumin Lvl 4.6 g/dL 3.5 - 5.0 04/24/2017 [facility] CHEM PANEL eGFR 61 mL/min/1.73m2 04/24/2017 Result Comment: The eGFR is calculated using the CKD-EPI formula. In most young, healthy individuals the eGFR will be >90 mL/min/1.73m2. The eGFR declines with age. An eGFR of 60-89 may be normal in some populations, particularly the elderly, for whom the CKD-EPI formula has not been extensively validated. Use of the eGFR is not recommended in the following populations: Individuals with unstable creatinine concentrations, including patients and those with serious co-morbid conditions. Patients with extremes in muscle mass or diet. The data above are obtained from the National Kidney Disease Education Program (NKDEP) which additionally recommends that when the eGFR is used in patients with extremes of body mass index for purposes of drug dosing, the eGFR should be multiplied by the estimated BMI. [facility] CHEM PANEL A/G Ratio 1.1 0.7 - 1.6 04/24/2017 [facility] CHEM PANEL Globulin 4.1 g/dL 2.7 - 4.2 04/24/2017 [facility] CHEM PANEL AGAP 13.7 meq/L 10.0 - 20.0 04/24/2017 [facility] CHEM PANEL Bili Total 1.0 mg/dL 0.2 - 1.3 04/24/2017 [facility] CHEM PANEL Alk Phos 132 unit/L 39 - 136 04/24/2017 [facility] CHEM PANEL B/C Ratio 14 6 - 25 04/24/2017 [facility] CHEM PANEL AST 155 unit/L 0 - 37 04/24/2017 [facility] CHEM PANEL BUN 16 mg/dL 7 - 22 04/24/2017 [facility] CHEM PANEL Glucose Lvl 124 mg/dL 70 - 99 04/24/2017 [facility] CHEM PANEL Creatinine Lvl 1.12 mg/dL 0.50 - 1.40 04/24/2017 [facility] CHEM PANEL Potassium Lvl 3.7 meq/L 3.5 - 5.1 04/24/2017 [facility] CHEM PANEL CO2 27 meq/L 24 - 32 04/24/2017 [facility] CHEM PANEL Chloride Lvl 97 meq/L 95 - 109 04/24/2017 [facility] CHEM PANEL Sodium Lvl 134 meq/L 135 - 145 04/24/2017 [facility] HEMATOLOGY Monocytes 2.9 % 2.0 - 12.0 04/24/2017 [facility] HEMATOLOGY Basophils 0.4 % 0.0 - 1.0 04/24/2017 [facility] HEMATOLOGY Segs-Bands # 9.8 K/CMM 1.5 - 8.1 04/24/2017 [facility] HEMATOLOGY Monocytes # 0.3 K/CMM 0.0 - 0.8 04/24/2017 [facility] Lymphocytes # 1.1 K/CMM 1.0 - 5.5 04/24/2017 [facility] Segs 86.8 % 45.0 - 75.0 04/24/2017 [facility] Lymphocytes 9.9 % 20.0 - 40.0 04/24/2017 [facility] WBC 11.3 K/CMM 3.7 - 10.4 04/24/2017 [facility] RBC 5.06 M/CMM 4.20 - 5.40 04/24/2017 [facility] Hct 44.6 % 36.0 - 48.0 04/24/2017 [facility] Hgb 15.4 g/dL 12.0 - 16.0 04/24/2017 [facility] MCV 88.1 fL 80.0 - 98.0 04/24/2017 [facility] MCH 30.4 pg 27.0 - 31.0 04/24/2017 [facility] RDW 12.7 % 11.5 - 14.5 04/24/2017 [facility] MCHC 34.5 g/dL 32.0 - 36.0 04/24/2017 [facility] MPV 7.9 fL 7.4 - 10.4 04/24/2017 [facility] Platelet 356 K/CMM 133 - 450 04/24/2017 [facility] Abdomen acute series w chest 1 view DX Abdomen acute series w chest 1 view DX Portable abdominal series 3 views: The gas pattern is within normal limits. There is no evidence of pneumoperitoneum. There are no significant calcifications. Cholecystectomy clips in the right upper quadrant are noted. There are no significant osseous abnormalities. There are no significant intrathoracic abnormalities. IMPRESSION: No acute radiographic abnormality of the abdomen. [id number] 04/24/2017 - - Read by: Tobias Brown MD Dictated Date/time: 04/24/17 16:57 Electronically Signed by: Tobias Borwn MD 04/24/17 16:58 FINAL REPORT [facility] SPECIAL CHEMISTRY Hgb A1C 4.8 % <=5.6 % 04/04/2017 [facility] CHEM PANEL eGFR 56 mL/min/1.73m2 04/03/2017 Result Comment: The eGFR is calculated using the CKD-EPI formula. In most young, healthy individuals the eGFR will be >90 mL/min/1.73m2. The eGFR declines with age. An eGFR of 60-89 may be normal in some populations, particularly the elderly, for whom the CKD-EPI formula has not been extensively validated. Use of the eGFR is not recommended in the following populations: Individuals with unstable creatinine concentrations, including patients and those with serious co-morbid conditions. Patients with extremes in muscle mass or diet. The data above are obtained from the National Kidney Disease Education Program (NKDEP) which additionally recommends that when the eGFR is used in patients with extremes of body mass index for purposes of drug dosing, the eGFR should be multiplied by the estimated BMI. [facility] CHEM PANEL BUN 21 mg/dL 7 - 22 04/03/2017 [facility] CHEM PANEL Glucose Lvl 123 mg/dL 70 - 99 04/03/2017 [facility] CHEM PANEL Calcium Lvl 8.9 mg/dL 8.5 - 10.5 04/03/2017 [facility] CHEM PANEL AGAP 12.6 meq/L 10.0 - 20.0 04/03/2017 [facility] CHEM PANEL Total Protein 7.4 g/dL 6.4 - 8.4 04/03/2017 [facility] CHEM PANEL Sodium Lvl 139 meq/L 135 - 145 04/03/2017 [facility] CHEM PANEL Creatinine Lvl 1.20 mg/dL 0.50 - 1.40 04/03/2017 [facility] CHEM PANEL B/C Ratio 18 6 - 25 04/03/2017 [facility] CHEM PANEL Potassium Lvl 3.6 meq/L 3.5 - 5.1 04/03/2017 [facility] CHEM PANEL CO2 23 meq/L 24 - 32 04/03/2017 [facility] CHEM PANEL Chloride Lvl 107 meq/L 95 - 109 04/03/2017 [facility] CHEM PANEL AST 34 unit/L 0 - 37 04/03/2017 [facility] CHEM PANEL A/G Ratio 1.2 0.7 - 1.6 04/03/2017 [facility] CHEM PANEL Globulin 3.4 g/dL 2.7 - 4.2 04/03/2017 [facility] CHEM PANEL ALT 66 unit/L 0 - 65 04/03/2017 [facility] CHEM PANEL Alk Phos 97 unit/L 39 - 136 04/03/2017 [facility] CHEM PANEL Albumin Lvl 4.0 g/dL 3.5 - 5.0 04/03/2017 [facility] CHEM PANEL Bili Total 0.6 mg/dL 0.2 - 1.3 04/03/2017 [facility] PTT 24.6 s 22.9 - 35.8 04/03/2017 [facility] PT 13.3 s 12.0 - 14.7 04/03/2017 [facility] INR 1.01 0.85 - 1.17 04/03/2017 [facility] MPV 8.1 fL 7.4 - 10.4 04/03/2017 [facility] RDW 13.1 % 11.5 - 14.5 04/03/2017 [facility] Platelet 284 K/CMM 133 - 450 04/03/2017 [facility] MCH 30.0 pg 27.0 - 31.0 04/03/2017 [facility] MCV 87.6 fL 80.0 - 98.0 04/03/2017 [facility] MCHC 34.3 g/dL 32.0 - 36.0 04/03/2017 [facility] RBC 4.46 M/CMM 4.20 - 5.40 04/03/2017 [facility] Hct 39.1 % 36.0 - 48.0 04/03/2017 [facility] Hgb 13.4 g/dL 12.0 - 16.0 04/03/2017 [facility] WBC 7.7 K/CMM 3.7 - 10.4 04/03/2017 [facility] Lymphocytes # 1.5 K/CMM 1.0 - 5.5 04/03/2017 [facility] Monocytes # 0.7 K/CMM 0.0 - 0.8 04/03/2017 [facility] Basophils 0.1 % 0.0 - 1.0 04/03/2017 [facility] Segs-Bands # 5.4 K/CMM 1.5 - 8.1 04/03/2017 [facility] Monocytes 9.5 % 2.0 - 12.0 04/03/2017 [facility] Lymphocytes 20.0 % 20.0 - 40.0 04/03/2017 [facility] Segs 70.4 % 45.0 - 75.0 04/03/2017 [facility] Abdomen/Pelvis w IV contrast CT Abdomen/Pelvis w IV contrast CT Patient Name: MARYCARMEN MCKENNA : 1975; Age: 41 years y/o Female MR: [id number] Study: Abdomen/Pelvis w IV contrast CT 04/02/2017 1:14 PM [employer] Ordering Physician: Chip Triana Clinical Indication: - Low back pain/abd pain; Comparison: None TECHNIQUE: Helical imaging was performed from the diaphragm through the symphysis with multiplanar reformations obtained after intravenous administration of 100 mL of Omnipaque. DLP: 991 mGy-cm. FINDINGS: LOWER CHEST: The lung bases are clear without significant pleural effusion bilaterally. SOLID ORGANS: No focal liver or splenic abnormality. Kidneys are unremarkable bilaterally. No pelvocaliectasis or ureterectasis bilaterally. The adrenals and pancreas are unremarkable. Patient is status post cholecystectomy. RETROPERITONEUM: No abdominal or pelvic adenopathy. The abdominal aorta is unremarkable. PELVIS: Patient is status post hysterectomy. Bladder is unremarkable. BOWEL: There is a thickened appearance to the distal right colon, transverse colon, descending colon and rectum that may just be due to the colon being collapsed but a nonspecific colitis cannot be excluded. There is a mild thickened appearance to the terminal ileum and cannot exclude a mild nonspecific terminal ileitis. No other bowel abnormality identified in the abdomen or pelvis. The appendix is unremarkable. PERITONEUM: No free intraperitoneal air. No abnormal fluid collection identified in the abdomen or pelvis. MUSCULOSKELETAL: No significant osseous abnormality. IMPRESSION: 1. Status post cholecystectomy and hysterectomy. 2. Thickened appearance to portions of the colon as above that may just be due to those portions of the colon being collapsed but a nonspecific colitis cannot be excluded. 3. Mild thickened appearance to the terminal ileum and cannot exclude a mild nonspecific terminal ileitis. SL: [id number] 04/02/2017 - - Read by: Ryder Eastman MD Dictated Date/time: 04/02/17 15:34 Electronically Signed by: Ryder Eastman MD 04/02/17 15:42 FINAL REPORT [facility] URINE AND STOOL UA Urobilinogen <=1.0 mg/dL 0.1 - 1.0 04/02/2017 [facility] URINE AND STOOL UA Color Ltyellow 04/02/2017 [facility] URINE AND STOOL UA RBC 1 /HPF 0 - 2 04/02/2017 [facility] URINE AND STOOL UA WBC null 0 - 5 04/02/2017 [facility] URINE AND STOOL UA Sq Epi Occasional /LPF Few /LPF 04/02/2017 [facility] URINE AND STOOL UA Turbidity Clear (04/02/17 8:45 AM) Clear 04/02/2017 [facility] URINE AND STOOL UA Spec Grav 1.008 <=1.030 04/02/2017 [facility] URINE AND STOOL UA pH 7.0 5.0 - 8.0 04/02/2017 [facility] URINE AND STOOL UA Protein Negative mg/dL Negative mg/dL 04/02/2017 [facility] URINE AND STOOL UA Glucose Negative mg/dL Negative mg/dL 04/02/2017 [facility] URINE AND STOOL UA Ketones Negative mg/dL Negative mg/dL 04/02/2017 [facility] URINE AND STOOL UA Leuk Est Negative (04/02/17 8:45 AM) Negative 04/02/2017 [facility] URINE AND STOOL UA Bili Negative *NA* (04/02/17 8:45 AM) Negative 04/02/2017 [facility] URINE AND STOOL UA Blood Negative (04/02/17 8:45 AM) Negative 04/02/2017 [facility] URINE AND STOOL UA Nitrite Negative (04/02/17 8:45 AM) Negative 04/02/2017 [facility] CHEM PANEL eGFR 80 mL/min/1.73m2 04/02/2017 Result Comment: The eGFR is calculated using the CKD-EPI formula. In most young, healthy individuals the eGFR will be >90 mL/min/1.73m2. The eGFR declines with age. An eGFR of 60-89 may be normal in some populations, particularly the elderly, for whom the CKD-EPI formula has not been extensively validated. Use of the eGFR is not recommended in the following populations: Individuals with unstable creatinine concentrations, including patients and those with serious co-morbid conditions. Patients with extremes in muscle mass or diet. The data above are obtained from the National Kidney Disease Education Program (NKDEP) which additionally recommends that when the eGFR is used in patients with extremes of body mass index for purposes of drug dosing, the eGFR should be multiplied by the estimated BMI. [facility] CHEM PANEL Bili Total 0.4 mg/dL 0.2 - 1.3 04/02/2017 [facility] CHEM PANEL Potassium Lvl 4.1 meq/L 3.5 - 5.1 04/02/2017 [facility] CHEM PANEL Chloride Lvl 106 meq/L 95 - 109 04/02/2017 [facility] CHEM PANEL AST 46 unit/L 0 - 37 04/02/2017 [facility] CHEM PANEL ALT 81 unit/L 0 - 65 04/02/2017 [facility] CHEM PANEL Albumin Lvl 4.2 g/dL 3.5 - 5.0 04/02/2017 [facility] CHEM PANEL Alk Phos 112 unit/L 39 - 136 04/02/2017 [facility] CHEM PANEL Creatinine Lvl 0.90 mg/dL 0.50 - 1.40 04/02/2017 [facility] CHEM PANEL BUN 14 mg/dL 7 - 22 04/02/2017 [facility] CHEM PANEL Sodium Lvl 138 meq/L 135 - 145 04/02/2017 [facility] CHEM PANEL Calcium Lvl 9.0 mg/dL 8.5 - 10.5 04/02/2017 [facility] CHEM PANEL Total Protein 7.7 g/dL 6.4 - 8.4 04/02/2017 [facility] CHEM PANEL CO2 22 meq/L 24 - 32 04/02/2017 [facility] CHEM PANEL Glucose Lvl 102 mg/dL 70 - 99 04/02/2017 [facility] CHEM PANEL A/G Ratio 1.2 0.7 - 1.6 04/02/2017 [facility] CHEM PANEL Globulin 3.5 g/dL 2.7 - 4.2 04/02/2017 [facility] CHEM PANEL AGAP 14.1 meq/L 10.0 - 20.0 04/02/2017 [facility] CHEM PANEL B/C Ratio 16 6 - 25 04/02/2017 [facility] CHEM PANEL Lipase Lvl 162 unit/L 73 - 393 04/02/2017 [facility] HEMATOLOGY RDW 13.1 % 11.5 - 14.5 04/02/2017 [facility] MCHC 34.4 g/dL 32.0 - 36.0 04/02/2017 [facility] HEMATOLOGY Platelet 276 K/CMM 133 - 450 04/02/2017 [facility] HEMATOLOGY MPV 7.8 fL 7.4 - 10.4 04/02/2017 [facility] HEMATOLOGY MCV 88.9 fL 80.0 - 98.0 04/02/2017 [facility] HEMATOLOGY Hct 42.4 % 36.0 - 48.0 04/02/2017 [facility] HEMATOLOGY Hgb 14.6 g/dL 12.0 - 16.0 04/02/2017 [facility] MCH 30.6 pg 27.0 - 31.0 04/02/2017 [facility] RBC 4.77 M/CMM 4.20 - 5.40 04/02/2017 [facility] HEMATOLOGY WBC 6.3 K/CMM 3.7 - 10.4 04/02/2017 [facility] HEMATOLOGY Segs 58.0 % 45.0 - 75.0 04/02/2017 [facility] Segs-Bands # 3.7 K/CMM 1.5 - 8.1 04/02/2017 [facility] Lymphocytes # 2.0 K/CMM 1.0 - 5.5 04/02/2017 [facility] Basophils 0.5 % 0.0 - 1.0 04/02/2017 [facility] Eosinophils 1.9 % 0.0 - 4.0 04/02/2017 [facility] Monocytes 7.5 % 2.0 - 12.0 04/02/2017 [facility] Lymphocytes 32.1 % 20.0 - 40.0 04/02/2017 [facility] Eosinophils # 0.1 K/CMM 0.0 - 0.5 04/02/2017 [facility] Monocytes # 0.5 K/CMM 0.0 - 0.8 04/02/2017 [facility] Spine lumbar wo contrast MRI Spine lumbar wo contrast MRI Clinical Indication: Lower back pain with urinary incontinence, and left leg sciatica. Patient also experiencing uncontolled nausea, vomiting. Comparison: None. TECHNIQUE: Multiplanar T1, T2, STIR weighted noncontrast MRI of the lumbar spine is performed on the 1.5 Porsche magnet. Full and complete MRI lumbar spine without gadolinium contrast exam was performed. FINDINGS: ALIGNMENT AND GENERAL ASSESSMENT: There is normal alignment of the lumbar spine. There is no spondylolisthesis. There are no fractures of the lumbar spine. The facet joints and spinous processes are well aligned. The conus medullaris is unremarkable, ending at the L1-L2 level. The anterior and posterior paraspinal soft tissues are unremarkable. The bone marrow is normal for the patient's age. For the sake of nomenclature, five lumbar vertebrae are assumed. DISC SPACES: Disc desiccation is seen at the L5-S1 level. T12-L1: The disk is normal. Minimal bilateral degenerative facet disease changes are seen. No central spinal stenosis. No foraminal stenosis. L1-L2: The disk is normal. The facet joints appear unremarkable. Unremarkable lateral recesses. No central spinal stenosis. No foraminal stenosis. L2-L3: The disk is normal. Mild bilateral degenerative facet disease changes are seen. Unremarkable lateral recesses. No central spinal stenosis. No foraminal stenosis. L3-L4: The disk is normal. Mild bilateral degenerative facet disease changes are seen with mild hypertrophy of the ligamentum flavum. Unremarkable lateral recesses. No central spinal stenosis. No foraminal stenosis. L4-L5: The disk is normal. Mild bilateral degenerative facet disease changes are seen with mild hypertrophy of the ligamentum flavum. Unremarkable lateral recesses. No central spinal stenosis. No foraminal stenosis. L5-S1: There is a left paracentral disc extrusion measuring approximately 10.8 x 14.8 x 8.9 mm. The extrusion is at the level of the plane of the disc space. There is severe mass effect on the left lateral recess/left S1 nerve. The right lateral recess appears unremarkable. There is mild rightward displacement of the thecal sac. Mild to moderate left-sided central spinal stenosis. No foraminal stenosis. IMPRESSION: 1. Left paracentral disc extrusion at the L5-S1 level, approximately 10.8 x 14.8 x 8.9 mm. The extrusion is at the level of the plane of the disc space. Severe mass effect on the left lateral recess/left S1 nerve. Mild rightward displacement of the thecal sac. Mild to moderate left-sided central spinal stenosis. No foraminal stenosis. SL: [id number] 04/02/2017 - - Read by: Augusto Woo MD Dictated Date/time: 04/02/17 14:45 Electronically Signed by: Augusto Woo MD 04/02/17 15:06 FINAL REPORT [facility] lumbar 2 or 3 views DX Spine lumbar 2 or 3 views DX Clinical Indication: Lower back pain. Diagnosed with herniated disc at L5/S1 Comparison: None FINDINGS: AP and lateral views of the lumbar spine. Vertebral body heights are maintained without fracture. No pars defects. No spondylolisthesis. Alignment is normal. The disc spaces are normal. The paraspinal soft tissues are unremarkable. If there is further concern or neurological abnormalities on clinical exam, MRI or CT of the lumbar spine may be performed for complete assessment. IMPRESSION: Unremarkable lumbar spine x-rays SL: [id number] 04/02/2017 - - Read by: Albino Rogers MD Dictated Date/time: 04/02/17 09:07 Electronically Signed by: Albino Rogers MD 04/02/17 09:08 FINAL REPORT [facility] CHEM PANEL Lipase Lvl 66 unit/L 73 - 393 07/17/2014 [facility] CHEM PANEL eGFR 94 mL/min/1.73m2 07/17/2014 1Result Comment: The eGFR is calculated using the CKD-EPI formula. In most young, healthy individuals the eGFR will be >90 mL/min/1.73m2. The eGFR declines with age. An eGFR of 60-89 may be normal in some populations, particularly the elderly, for whom the CKD-EPI formula has not been extensively validated. Use of the eGFR is not recommended in the following populations: Individuals with unstable creatinine concentrations, including patients and those with serious co-morbid conditions. Patients with extremes in muscle mass or diet. The data above are obtained from the National Kidney Disease Education Program (NKDEP) which additionally recommends that when the eGFR is used in patients with extremes of body mass index for purposes of drug dosing, the eGFR should be multiplied by the estimated BMI. [facility] CHEM PANEL AST 27 unit/L 0 - 37 07/17/2014 [facility] CHEM PANEL Albumin Lvl 3.3 g/dL 3.5 - 5.0 07/17/2014 [facility] CHEM PANEL ALT 54 unit/L 0 - 65 07/17/2014 [facility] CHEM PANEL Alk Phos 93 unit/L 39 - 136 07/17/2014 [facility] CHEM PANEL Bili Total 0.4 mg/dL 0.2 - 1.3 07/17/2014 [facility] CHEM PANEL Glucose Lvl 139 mg/dL 70 - 99 07/17/2014 2Interpretive Data: Adult reference range values reflect the clinical guidelines of the [employer]. [facility] CHEM PANEL Calcium Lvl 8.2 mg/dL 8.5 - 10.5 07/17/2014 [facility] CHEM PANEL Potassium Lvl 3.6 meq/L 3.5 - 5.1 07/17/2014 [facility] CHEM PANEL Chloride Lvl 110 meq/L 95 - 109 07/17/2014 [facility] CHEM PANEL CO2 23 meq/L 24 - 32 07/17/2014 [facility] CHEM PANEL Total Protein 6.6 g/dL 6.4 - 8.4 07/17/2014 [facility] CHEM PANEL BUN 10 mg/dL 7 - 22 07/17/2014 [facility] CHEM PANEL Creatinine Lvl 0.8 mg/dL 0.5 - 1.4 07/17/2014 [facility] CHEM PANEL Sodium Lvl 144 meq/L 135 - 145 07/17/2014 [facility] CHEM PANEL Globulin 3.3 g/dL 2.0 - 4.0 07/17/2014 [facility] CHEM PANEL A/G Ratio 1.0 0.7 - 1.6 07/17/2014 [facility] CHEM PANEL B/C Ratio 12 6 - 25 07/17/2014 [facility] CHEM PANEL AGAP 14.6 meq/L 10.0 - 20.0 07/17/2014 [facility] HEMATOLOGY Segs 70.8 % 45.0 - 75.0 07/17/2014 [facility] HEMATOLOGY Lymphocytes 22.1 % 20.0 - 40.0 07/17/2014 [facility] HEMATOLOGY Monocytes # 0.5 K/CMM 0.0 - 0.8 07/17/2014 [facility] HEMATOLOGY Lymphocytes # 1.5 K/CMM 1.0 - 5.5 07/17/2014 [facility] HEMATOLOGY Eosinophils 0.1 % 0.0 - 4.0 07/17/2014 [facility] HEMATOLOGY Monocytes 6.7 % 2.0 - 12.0 07/17/2014 [facility] HEMATOLOGY Segs-Bands # 4.9 K/CMM 1.5 - 8.1 07/17/2014 [facility] HEMATOLOGY Basophils 0.3 % 0.0 - 1.0 07/17/2014 [facility] HEMATOLOGY RDW 13.6 % 11.5 - 14.5 07/17/2014 [facility] HEMATOLOGY MCV 90.6 fL 80.0 - 98.0 07/17/2014 [facility] HEMATOLOGY Hgb 12.2 g/dL 12.0 - 16.0 07/17/2014 [facility] HEMATOLOGY MCH 31.3 pg 27.0 - 31.0 07/17/2014 [facility] HEMATOLOGY Hct 35.3 % 36.0 - 48.0 07/17/2014 [facility] HEMATOLOGY WBC 6.9 K/CMM 3.7 - 10.4 07/17/2014 [facility] HEMATOLOGY RBC 3.89 M/CMM 4.20 - 5.40 07/17/2014 [facility] HEMATOLOGY MPV 7.6 fL 7.4 - 10.4 07/17/2014 [facility] HEMATOLOGY Platelet 258 K/CMM 133 - 450 07/17/2014 [facility] HEMATOLOGY MCHC 34.5 g/dL 32.0 - 36.0 07/17/2014 [facility] URINE AND STOOL UA Sq Epi Few /LPF Few /LPF 07/17/2014 [facility] URINE AND STOOL UA Leuk Est Negative (07/16/14 11:29 PM) Negative 07/17/2014 [facility] URINE AND STOOL UA WBC null 0 - 5 07/17/2014 [facility] URINE AND STOOL UA Mucus Few /LPF None Seen /LPF 07/17/2014 [facility] URINE AND STOOL UA Urobilinogen <=1.0 mg/dL 0.1 - 1.0 07/17/2014 [facility] URINE AND STOOL UA Spec Grav 1.023 <=1.030 07/17/2014 [facility] URINE AND STOOL UA pH 6.5 5.0 - 8.0 07/17/2014 [facility] URINE AND STOOL UA Protein Negative mg/dL Negative mg/dL 07/17/2014 [facility] URINE AND STOOL UA Blood Negative (07/16/14 11:29 PM) Negative 07/17/2014 [facility] URINE AND STOOL UA Glucose Negative mg/dL Negative mg/dL 07/17/2014 [facility] URINE AND STOOL UA Ketones Negative mg/dL Negative mg/dL 07/17/2014 [facility] URINE AND STOOL UA Nitrite Negative (07/16/14 11:29 PM) Negative 07/17/2014 [facility] URINE AND STOOL UA Bili Negative *NA* (07/16/14 11:29 PM) Negative 07/17/2014 [facility] URINE AND STOOL UA Turbidity Clear (07/16/14 11:29 PM) Clear 07/17/2014 [facility] URINE AND STOOL UA Color Yellow *NA* (07/16/14 11:29 PM) Yellow 07/17/2014 [facility] Vital Signs Vital Sign Value Date Comments Source Heart Rate 92 04/30/2017 [facility] Systolic (mm Hg) 140 04/30/2017 [facility] Diastolic (mm Hg) 90 04/30/2017 [facility] Respitory Rate 18 04/30/2017 [facility] Heart Rate 100 04/30/2017 [facility] Systolic (mm Hg) 132 04/30/2017 [facility] Diastolic (mm Hg) 86 04/30/2017 [facility] Temperature Oral (F) 97.7 F 04/30/2017 [facility] Systolic (mm Hg) 143 04/30/2017 [facility] Diastolic (mm Hg) 91 04/30/2017 [facility] Heart Rate 94 04/30/2017 [facility] Respitory Rate 24 04/30/2017 [facility] Respitory Rate 18 04/30/2017 [facility] Temperature Oral (F) 98.3 F 04/30/2017 [facility] Temperature Oral (F) 97.5 F 04/30/2017 [facility] Weight 90.909 04/28/2017 [facility] Weight 90.909 04/28/2017 [facility] BMI Calculated 33.35 04/28/2017 [facility] Height 165.1 cm 04/28/2017 [facility] Height 165.1 cm 04/28/2017 [facility] BMI Calculated 33.35 04/28/2017 [facility] Weight 90.909 04/28/2017 [facility] Systolic (mm Hg) 161 04/25/2017 [facility] Diastolic (mm Hg) 101 04/25/2017 [facility] Respitory Rate 19 04/25/2017 [facility] Temperature Oral (F) 97.9 F 04/24/2017 [facility] Respitory Rate 16 04/24/2017 [facility] Systolic (mm Hg) 186 04/24/2017 [facility] Diastolic (mm Hg) 106 04/24/2017 [facility] Heart Rate 106 04/24/2017 [facility] BMI Calculated 33.35 04/24/2017 [facility] Height 165.1 cm 04/24/2017 [facility] Weight 90.909 04/24/2017 [facility] Temperature Oral (F) 98.2 F 04/06/2017 [facility] Respitory Rate 16 04/06/2017 [facility] Heart Rate 85 04/06/2017 [facility] Systolic (mm Hg) 140 04/06/2017 [facility] Diastolic (mm Hg) 88 04/06/2017 [facility] Systolic (mm Hg) 139 04/06/2017 [facility] Diastolic (mm Hg) 93 04/06/2017 [facility] Respitory Rate 16 04/06/2017 [facility] Heart Rate 84 04/06/2017 [facility] Temperature Oral (F) 97.6 F 04/06/2017 [facility] Systolic (mm Hg) 150 04/06/2017 [facility] Diastolic (mm Hg) 79 04/06/2017 [facility] Respitory Rate 11 04/06/2017 [facility] Heart Rate 88 04/05/2017 [facility] Temperature Oral (F) 98.3 F 04/05/2017 [facility] Height 165.1 cm 04/03/2017 [facility] Weight 88.636 04/02/2017 [facility] Height 165.1 cm 04/02/2017 [facility] BMI Calculated 32.52 04/02/2017 [facility] Respitory Rate 18 07/17/2014 [facility] Systolic (mm Hg) 143 07/17/2014 [facility] Diastolic (mm Hg) 92 07/17/2014 [facility] Heart Rate 82 07/17/2014 [facility] Temperature Oral (F) 98.2 F 07/17/2014 [facility] Respitory Rate 20 07/17/2014 [facility] Temperature Oral (F) 97.8 F 07/17/2014 [facility] Heart Rate 96 07/17/2014 [facility] Systolic (mm Hg) 123 07/17/2014 [facility] Diastolic (mm Hg) 88 07/17/2014 [facility] Heart Rate 61 07/17/2014 [facility] Temperature Oral (F) 97.0 F 07/17/2014 [facility] Systolic (mm Hg) 130 07/17/2014 [facility] Diastolic (mm Hg) 81 07/17/2014 [facility] Respitory Rate 18 07/17/2014 [facility] Weight 88.636 07/17/2014 [facility] BMI Calculated 32.52 07/17/2014 [facility] Height 165.1 cm 07/17/2014 [facility] Encounters Location Location Details Encounter Type Encounter Number Reason For Visit Attending Provider ADM Date DC Date Status Source [facility] OBS Observation Patient [id number] Moriah Reno 07/17/2014 07/18/2014 [facility] Inpatient [id number] 04/02/2017 04/06/2017 [facility] Emergency [id number] Socrates WillamsMckeon 04/24/2017 04/25/2017 [facility] Inpatient [id number] Raúl Savageo 04/28/2017 05/01/2017 [facility] Procedures Procedure Code Date Perfomer Comments Source Abdominal hysterectomy [id number] [facility] Cholecystectomy [id number] [facility] Discectomy [id number] [facility] Tonsillectomy [id number] [facility] Tubal ligation [id number] [facility] Cholecystectomy [id number] [facility] Tonsillectomy [id number] [facility]
--- OUTSIDE RECORDS SUMMARY | 2018-06-29 19:39 | XMS REPORT | Summary of Care ---
Author Author [facility] Organization [facility] Address Unknown Phone Unavailable Encounter YODIT Martinez(JUAN DIEGO) [id number] Date(s): 04/24/17 - 04/24/17 [facility] [address] [place] [address]- [phone] Encounter Diagnosis Cyclical vomiting, not intractable (Final) - 04/30/17 Urinary tract infection, site not specified (Final) - Discharge Disposition: Home or Self Care Attending Physician: Socrates Mckeon MD Vital Signs Most recent to 1 2 oldest [Reference Range]: Height 165.1 cm (04/24/17 4:06 PM) Temperature Oral 97.9 DegF [96.4-99.1 DegF] (04/24/17 4:06 PM) Blood Pressure 161/101 mmHg 186/106 mmHg [90-140/60-90 mmHg] *HI* *HI* (04/24/17 7:53 PM) (04/24/17 4:06 PM) Respiratory Rate 19 BRMIN 16 BRMIN [14-20 BRMIN] (04/24/17 7:53 PM) (04/24/17 4:06 PM) Peripheral Pulse 106 bpm Rate [60-100 bpm] *HI* (04/24/17 4:06 PM) Weight 90.909 kg (04/24/17 4:06 PM) Body Mass Index 33.35 m2 (04/24/17 4:06 PM) Problem List Condition Effective Dates Status Health Status Informant Kidney Resolved stone(Confirmed) Stent Resolved replacement(Confirme d) Allergies, Adverse Reactions, Alerts Substance Reaction Severity Status NKDA Active Medications Keflex 500 mg oral capsule 500 mg=1 cap, PO, TID, X 7 day, # 21 cap, 0 Refill(s), Pharmacy: [id number] Start Date: 04/24/17 Stop Date: 05/01/17 Status: Completed ketOROLAC 15 mg/mL injectable solution 15 mg, Route: IM, Q6H, Dosing Weight 90.909, kg, Start date: 04/24/17 18:00:[address], Duration: 4 day, Stop date: 04/28/17 12:00:00 [employer] Start Date: 04/24/17 Stop Date: 04/24/17 Status: Canceled ketOROLAC 15 mg/mL injectable solution 15 mg, Route: IVP, Drug form: INJ, ONCE, Dosing Weight 90.909, kg, Priority: STA T, Start date: 04/24/17 16:45:00 [employer], Stop date: 04/24/17 16:45:00 [employer] Start Date: 04/24/17 Stop Date: 04/24/17 Status: Completed Phenergan + Sodium Chloride 0.9% IV 50 mL 12.5 mg, 0.5 mL, Route: IVPB, ONCE, Dosing Weight 88.636, kg, Priority: STAT, St art date: 04/24/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 (Same as: Phenergan) Start Date: 04/24/17 Stop Date: 04/24/17 Status: Completed Phenergan 25 mg rectal suppository 25 mg=1 supp, SC, Q6H, PRN Nausea & Vomiting, # 20 supp, 0 Refill(s), Pharmacy: [id number] Start Date: 04/24/17 Stop Date: 04/29/17 Status: Ordered Saline Flush 0.9% 10 mL, Route: IVP, Drug Form: INJ, Dosing Weight 88.636, kg, PRN, PRN Line Flush , Start date: 04/24/17 15:45:00 LUM[employer]ER, Duration: 30 day, Stop date: 05/24/17 16:44 :00 CDT Notes: (Same as: BD Posiflush) Start Date: 04/24/17 Stop Date: 04/24/17 Status: Discontinued Sodium Chloride 0.9% (Bolus) IV 1,000 mL, 1000 ml/hr, Infuse Over: 1 hr, Route: IV, 1,000, Drug form: INJ, ONCE, Priority: STAT, Dosing Weight 88.636 kg, Start date: 04/24/17 15:52:00 [employer], Stop date: 04/24/17 15:52:00 [employer] Start Date: 04/24/17 Stop Date: 04/24/17 Status: Completed Results ELECTROLYTES Most recent to 1 oldest [Reference Range]: Sodium Lvl [135-145 134 mEq/L mEq/L] *LOW* (04/24/17 4:22 PM) Potassium Lvl 3.7 mEq/L [3.5-5.1 mEq/L] (04/24/17 4:22 PM) Chloride Lvl [95-109 97 mEq/L mEq/L] (04/24/17 4:22 PM) CO2 [24-32 mEq/L] 27 mEq/L (04/24/17 4:22 PM) AGAP [10.0-20.0 13.7 mEq/L mEq/L] (04/24/17 4:22 PM) CHEM PANEL Most recent to 1 oldest [Reference Range]: Creatinine Lvl 1.12 mg/dL [0.50-1.40 mg/dL] (04/24/17 4:22 PM) eGFR 61 mL/min/1.73m2 1 *NA* (04/24/17 4:22 PM) BUN [7-22 mg/dL] 16 mg/dL (04/24/17 4:22 PM) B/C Ratio [6-25] 14 (04/24/17 4:22 PM) Glucose Lvl [70-99 124 mg/dL mg/dL] *HI* (04/24/17 4:22 PM) Total Protein 8.7 g/dL [6.4-8.4 g/dL] *HI* (04/24/17 4:22 PM) Albumin Lvl [3.5-5.0 4.6 g/dL g/dL] (04/24/17 4:22 PM) Globulin [2.7-4.2 4.1 g/dL g/dL] (04/24/17 4:22 PM) A/G Ratio [0.7-1.6] 1.1 (04/24/17 4:22 PM) Calcium Lvl 9.5 mg/dL [8.5-10.5 mg/dL] (04/24/17 4:22 PM) ALT [0-65 unit/L] 234 unit/L *HI* (04/24/17 4:22 PM) AST [0-37 unit/L] 155 unit/L *HI* (04/24/17 4:22 PM) Alk Phos [39-136 132 unit/L unit/L] (04/24/17 4:22 PM) Bili Total [0.2-1.3 1.0 mg/dL mg/dL] (04/24/17 4:22 PM) Lipase Lvl [73-393 86 unit/L unit/L] (04/24/17 4:22 PM) 1Result Comment: The eGFR is calculated using [...] from the National Kidney Disease Education Program ( NKDEP) which additionally recommends that when the eGFR is used in patients with extremes of body mass index for purposes of drug dosing, the eGFR should be mul tiplied by the estimated BMI. CARDIAC ENZYMES Most recent to 1 oldest [Reference Range]: Total CK [12-191 76 unit/L unit/L] (04/24/17 4:22 PM) CK MB [0.5-3.6 1.0 ng/mL ng/mL] (04/24/17 4:22 PM) CK MB Index 1.3 [0.0-2.5] (04/24/17 4:22 PM) Troponin-I <0.02 ng/mL [0.00-0.40 ng/mL] (04/24/17 4:22 PM) URINE CHEM Most recent to 1 oldest [Reference Range]: U Preg [Negative] Negative (04/24/17 5:52 PM) URINE AND STOOL Most recent to 1 oldest [Reference Range]: UA Turbidity [Clear] Marked *ABN* (04/24/17 5:52 PM) UA Color Therese *NA* (04/24/17 5:52 PM) UA pH [5.0-8.0] 5.0 (04/24/17 5:52 PM) UA Spec Grav 1.032 [<=1.030] *HI* (04/24/17 5:52 PM) UA Glucose [Negative Negative mg/dL mg/dL] *NA* (04/24/17 5:52 PM) UA Blood [Negative] Large *ABN* (04/24/17 5:52 PM) UA Ketones [Negative 20 mg/dL mg/dL] *ABN* (04/24/17 5:52 PM) UA Protein [Negative 100 mg/dL mg/dL] *ABN* (04/24/17 5:52 PM) UA Urobilinogen 2.0 mg/dL [0.1-1.0 mg/dL] *HI* (04/24/17 5:52 PM) UA Bili [Negative] Negative *NA* (04/24/17 5:52 PM) UA Leuk Est Negative [Negative] (04/24/17 5:52 PM) UA Nitrite Negative [Negative] (04/24/17 5:52 PM) UA WBC [0-5 /HPF] 6 /HPF *HI* (04/24/17 5:52 PM) UA RBC [0-2 /HPF] >182 /HPF *HI* (04/24/17 5:52 PM) UA Sq Epi [Few /LPF] Many /LPF *ABN* (04/24/17 5:52 PM) UA Hyal Cast [0-2 5 /LPF /LPF] *HI* (04/24/17 5:52 PM) UA Mucus [None Seen Many /LPF /LPF] *ABN* (04/24/17 5:52 PM) HEMATOLOGY Most recent to 1 oldest [Reference Range]: WBC [3.7-10.4 K/CMM] 11.3 K/CMM *HI* (04/24/17 4:22 PM) RBC [4.20-5.40 5.06 M/CMM M/CMM] (04/24/17 4:22 PM) Hgb [12.0-16.0 g/dL] 15.4 g/dL (04/24/17 4:22 PM) Hct [36.0-48.0 %] 44.6 % (04/24/17 4:22 PM) MCV [80.0-98.0 fL] 88.1 fL (04/24/17 4:22 PM) MCH [27.0-31.0 pg] 30.4 pg (04/24/17 4:22 PM) MCHC [32.0-36.0 34.5 g/dL g/dL] (04/24/17 4:22 PM) RDW [11.5-14.5 %] 12.7 % (04/24/17 4:22 PM) MPV [7.4-10.4 fL] 7.9 fL (04/24/17 4:22 PM) Platelet [133-450 356 K/CMM K/CMM] (04/24/17 4:22 PM) Segs [45.0-75.0 %] 86.8 % *HI* (04/24/17 4:22 PM) Lymphocytes 9.9 % [20.0-40.0 %] *LOW* (04/24/17 4:22 PM) Monocytes [2.0-12.0 2.9 % %] (04/24/17 4:22 PM) Basophils [0.0-1.0 0.4 % %] (04/24/17 4:22 PM) Segs-Bands # 9.8 K/CMM [1.5-8.1 K/CMM] *HI* (04/24/17 4:22 PM) Lymphocytes # 1.1 K/CMM [1.0-5.5 K/CMM] (04/24/17 4:22 PM) Monocytes # [0.0-0.8 0.3 K/CMM K/CMM] (04/24/17 4:22 PM) Immunizations No data available for this section Procedures Procedure Date Related Diagnosis Body Site Status Abdominal hysterectomy Completed Cholecystectomy Completed Discectomy Completed Tonsillectomy Completed Tubal ligation Completed Social History Social History Type Response Substance Abuse Use: None. Type: Marijuana. Amount: month ago. Alcohol Never Smoking Status Never smoker; Exposure to Tobacco Smoke None; Cigarette Smoking Last 365 Days No; Reg Smoking Cessation Counseling No entered on: 04/28/17 Assessment and Plan No data available for this section
--- OUTSIDE RECORDS SUMMARY | 2018-06-29 19:40 | XMS REPORT | Summary of Care ---
Author Author [facility] Organization [facility] Address Unknown Phone Unavailable Encounter YODIT Martinez(JUAN DIEGO) [id number] Date(s): 04/02/17 - 04/06/17 [facility] [address] [place] [address]- Encounter Diagnosis Intervertebral disc disorders with radiculopathy, lumbosacral region (Final) - 04/09/17 Cyclical vomiting, not intractable (Final) - Cannabis use, unspecified, uncomplicated (Final) - Essential (primary) hypertension (Final) - Muscle spasm of back (Final) - Personal history of nicotine dependence (Final) - Discharge Disposition: Home or Self Care Vital Signs 1 2 3 Most recent to oldest [Reference Range]: 165.1 cm (04/02/17 9:00 PM) 165.1 cm (04/02/17 7:50 AM) Height 95.7 kg (04/05/17 5:00 AM) 96.227 kg (04/04/17 5:00 AM) 95 kg (04/02/17 9:00 PM) Current Weight 98.2 DegF (04/06/17 12:35 PM) 97.6 DegF (04/06/17 9:00 AM) 98.3 DegF (04/05/17 10:55 AM) Temperature Oral [96.4-99.1 DegF] 140/88 mmHg (04/06/17 12:35 PM) 139/93 mmHg (04/06/17 9:00 AM) 150/79 mmHg *HI* (04/05/17 7:45 PM) Blood Pressure [90-140/60-90 mmHg] 16 BRMIN (04/06/17 12:35 PM) 16 BRMIN (04/06/17 9:00 AM) 11 BRMIN *LOW* (04/05/17 7:45 PM) Respiratory Rate [14-20 BRMIN] 85 bpm (04/06/17 12:35 PM) 84 bpm (04/06/17 9:00 AM) 88 bpm (04/05/17 3:31 PM) Peripheral Pulse Rate [60-100 bpm] 88.636 kg (04/02/17 7:50 AM) Weight 32.52 m2 (04/02/17 7:50 AM) Body Mass Index Problem List Condition Effective Dates Status Health Status Informant Kidney Resolved stone(Confirmed) Stent Resolved replacement(Confirme d) Allergies, Adverse Reactions, Alerts Substance Reaction Severity Status NKDA Active Medications acetaminophen 650 mg, 2 tab, Route: PO, Drug form: TAB, Q4H, Dosing Weight 88.636, kg, PRN Izzy n 1-3/Temp > 100.4 F, Start date: 04/02/17 21:10:00 [employer]NAGER, Duration: 30 day, Stop date: 05/02/17 21:09:00 [employer]NU[employer] MANAGER Notes: Do not exceed 4 gm/day. (Same as: Tylenol) Start Date: 04/02/17 Stop Date: 04/05/17 Status: Voided With Results acetaminophen (ANES) 10 mg Route: IV, Drug form: INJ, Start date: 04/05/17 17:56:00 [employer]ATION [employer]DS MANAGER, Stop date: 8 18:56:00 [employer] MANAGER Start Date: 04/05/17 Stop Date: 04/05/17 Status: Completed ceFAZolin (ANES) Route: IV, Drug form: INJ, ONCE, Stop date: 04/05/17 18:32:00 [employer]ATION [employer] MANAGER Start Date: 04/05/17 Stop Date: 04/05/17 Status: Completed cyclobenzaprine 10 mg oral tablet 10 mg=1 tab, PO, TID, PRN Spasm, X 10 day, # 30 tab, 0 Refill(s), Pharmacy: [facility] [id number] Start Date: 04/06/17 Stop Date: 04/16/17 Status: Completed dexamethasone 10 mg, Route: IVP, ONCE, Dosing Weight 88.636, kg, Priority: STAT, Start date: 0 04/02/17 8:35:00 SU[employer]ATION [employer] MANAGER, Stop date: 04/02/17 8:35:00 [employer] MANAGER Start Date: 04/02/17 Stop Date: 04/02/17 Status: Completed dexamethasone 10 mg, Route: IM, ONCE, Dosing Weight 88.636, kg, Priority: STAT, Start date: 8:34:00 SUPERANNUATION [employer]DS MANAGER, Stop date: 04/02/17 8:34:00 SUPER[employer]ATION [employer]DS MANAGER Start Date: 04/02/17 Stop Date: 04/02/17 Status: Discontinued dexamethasone (ANES) Route: IV, Drug form: INJ, ONCE, Stop date: 04/05/17 18:32:00 SUPER[employer]ATION [employer]DS MANAGER Start Date: 04/05/17 Stop Date: 04/05/17 Status: Completed Dextrose 5% with 0.45% NaCl IV 1,000 mL 1,000 mL, Rate: 75 ml/hr, Infuse over: 13.3 hr, Route: IV, Dosing Weight 88.636 kg, Total Volume: 1,000, Start date: 04/02/17 21:10:00 SUPER[employer]NUATION [employer]DS MANAGER, Duration: 30 day, St op date: 05/02/17 21:09:00 SUPER[employer]ATION [employer]DS MANAGER, 2.04, m2 Start Date: 04/02/17 Stop Date: 04/06/17 Status: Discontinued Dilaudid 0.5 mg, 0.5 mL, Route: IV, Drug form: INJ, Q4H, Dosing Weight 88.636, kg, PRN Pa in Score 7-10, Start date: 04/05/17 2:34:00 SU[employer]ATION [employer]DS MANAGER, Stop date: 05/05/17 2:33:00 SUPER[employer]ATION [employer] MANAGER Notes: Same as: Dilaudid Start Date: 04/05/17 Stop Date: 04/05/17 Status: Voided With Results Dilaudid 4 mg, 1 tab, Route: PO, Drug form: TAB, Q2H, Dosing Weight 88.636, kg, PRN Pain Score 7-10, Start date: 04/05/17 18:27:00 SU[employer]ATION [employer] MANAGER, Stop date: 04/06/17 18:26:00 SUPER[employer]NUATION [employer]DS MANAGER Notes: (Same as: Dilaudid) Start Date: 04/05/17 Stop Date: 04/06/17 Status: Discontinued docusate 100 mg, 1 cap, Route: PO, Drug form: CAP, BID, Dosing Weight 88.636, kg, Start d ate: 04/03/17 9:00:00 SU[employer] MANAGER, Duration: 30 day, Stop date: 05/02/17 17:00:00 SUPER[employer] MANAGER Notes: (Same as: Colace) (Do Not Crush) Start Date: 04/03/17 Stop Date: 04/06/17 Status: Discontinued esmolol (ANES) Route: IV, Drug form: INJ, ONCE, Stop date: 04/05/17 18:32:00 SU[employer] MANAGER Start Date: 04/05/17 Stop Date: 04/05/17 Status: Completed famotidine 20 mg, Route: IVP, ONCE, Dosing Weight 88.636, kg, Priority: STAT, Start date: 0 04/02/17 8:11:00 SUPER[employer]ATION [employer]DS MANAGER, Stop date: 04/02/17 8:11:00 SUPER[employer] MANAGER Start Date: 04/02/17 Stop Date: 04/02/17 Status: Completed famotidine (ANES) Route: IV, Drug form: INJ, ONCE, Stop date: 04/05/17 18:34:00 SUPER[employer]ATION [employer] MANAGER Start Date: 04/05/17 Stop Date: 04/05/17 Status: Completed fentaNYL 50 microgram, Route: IV, ONCE, Dosing Weight 88.636, kg, Start date: 04/05/17 19 :02:00 SU[employer]ATION [employer] MANAGER, Stop date: 04/05/17 19:02:00 SU[employer] MANAGER Start Date: 04/05/17 Stop Date: 04/05/17 Status: Completed fentaNYL 50 microgram, 1 mL, Route: IVP, Drug form: INJ, Q5Min, Dosing Weight 88.636, kg, PRN Pain Score 4-6, Start date: 04/05/17 19:25:00 SUPER[employer]ATION [employer] MANAGER, Duration: 4 doses or dima es, Stop date: 04/05/17 22:00:00 SU[employer]ATION [employer] MANAGER, Pediatric Dosing Notes: (Same as: Sublimaze) Preservative free. Start Date: 04/05/17 Stop Date: 04/05/17 Status: Completed fentaNYL 50 microgram, Route: IVP, ONCE, Dosing Weight 88.636, kg, Priority: STAT, Start date: 04/02/17 9:20:00 SUPER[employer]NUATION [employer]DS MANAGER, Stop date: 04/02/17 9:20:00 SU[employer]ATION [employer]DS MANAGER Start Date: 04/02/17 Stop Date: 04/02/17 Status: Completed fentaNYL (ANES) Route: IV, Drug form: INJ, ONCE, Stop date: 04/05/17 18:47:00 SUPER[employer]NUATION [employer]DS MANAGER Start Date: 04/05/17 Stop Date: 04/05/17 Status: Completed fentaNYL (ANES) Route: IV, Drug form: INJ, ONCE, Stop date: 04/05/17 18:32:00 SU[employer] MANAGER Start Date: 04/05/17 Stop Date: 04/05/17 Status: Completed Flexeril 10 mg, 1 tab, Route: PO, Drug form: TAB, TID, Dosing Weight 88.636, kg, PRN Spas m, Start date: 04/02/17 21:13:00 SUPER[employer]ATION [employer]DS MANAGER, Duration: 30 day, Stop date: 05/02/17 21:1 2:00 SUPERANNUATION [employer]DS MANAGER Notes: (Same As: Flexeril) Start Date: 04/02/17 Stop Date: 04/06/17 Status: Discontinued glycopyrrolate (ANES) Route: IV, Drug form: INJ, ONCE, Stop date: 04/05/17 18:34:00 SUPER[employer]ATION [employer]DS MANAGER Start Date: 04/05/17 Stop Date: 04/05/17 Status: Completed ketOROLAC 30 mg, Route: IVP, ONCE, Dosing Weight 88.636, kg, Priority: STAT, Start date: 0 04/02/17 8:11:00 SUPER[employer]ATION [employer]DS MANAGER, Stop date: 04/02/17 8:11:00 SU[employer]ATION [employer]DS MANAGER Start Date: 04/02/17 Stop Date: 04/02/17 Status: Completed Lactated Ringers Injection IV (ANES) 1000 mL Route: IV, Total Volume: 1,000, Start date: 04/05/17 17:22:00 SUPER[employer]ATION [employer]DS MANAGER, Stop date: 18:22:00 SU[employer]ATION [employer]DS MANAGER Start Date: 04/05/17 Stop Date: 04/05/17 Status: Completed lidocaine (ANES) Route: IV, Drug form: INJ, ONCE, Stop date: 04/05/17 18:32:00 SUPER[employer]ATION [employer] MANAGER Start Date: 04/05/17 Stop Date: 04/05/17 Status: Completed LR IV 1,000 mL 1,000 mL, Rate: 40 ml/hr, Infuse over: 25 hr, Route: IV, Dosing Weight 88.636 kg , Total Volume: 1,000, Start date: 04/05/17 15:26:00 SU[employer]ATION [employer]DS MANAGER, Duration: 30 day, Stop date: 05/05/17 15:25:00 SUPER[employer]NUATION [employer]DS MANAGER, 2.04, m2 Start Date: 04/05/17 Stop Date: 04/06/17 Status: Discontinued midazolam (ANES) Route: IV, Drug form: SOLN, ONCE, Stop date: 04/05/17 17:57:00 SUPER[employer]NUATION [employer] MANAGER Start Date: 04/05/17 Stop Date: 04/05/17 Status: Completed morphine Sulfate 4 mg, 1 mL, Route: IVP, Drug form: SOLN, Q4H, Dosing Weight 88.636, kg, PRN Pain Score 7-10, Start date: 04/02/17 21:14:00 SUPER[employer]NUATION [employer]DS MANAGER, Duration: 30 day, Stop date: 06/16 21:13:00 SUPERANNUATION [employer]DS MANAGER Notes: (Same as:MORPhine Sulfate) Start Date: 04/02/17 Stop Date: 04/04/17 Status: Voided With Results morphine Sulfate 4 mg, 1 mL, Route: IVP, Drug form: SOLN, Q4H, Dosing Weight 88.636, kg, PRN Pain Score 7-10, Start date: 04/02/17 21:02:00 SUPER[employer]NUATION [employer]DS MANAGER, Duration: 30 day, Stop date: 06/16 21:01:00 SUPERANNUATION [employer]DS MANAGER Notes: (Same as:MORPhine Sulfate) Start Date: 04/02/17 Stop Date: 04/02/17 Status: Discontinued morphine Sulfate 12 mg, 6 mL, Route: PO, Drug form: SOLN, Q4H, PRN Pain Score 7-10, Start date: 0 04/04/17 10:16:00 SUPERANNUATION [employer]DS MANAGER, Duration: 30 day, Stop date: 05/04/17 10:15:00 SUPERANNUATION [employer]DS MANAGER Notes: (Same as:MORPhine Sulfate) Start Date: 04/04/17 Stop Date: 04/05/17 Status: Discontinued neostigmine (ANES) Route: IV, Drug form: INJ, ONCE, Stop date: 04/05/17 18:34:00 SUPER[employer]NUATION [employer]DS MANAGER Start Date: 04/05/17 Stop Date: 04/05/17 Status: Completed [place] 10/325 oral tablet 1 tab, Route: PO, Drug Form: TAB, Dosing Weight 88.636, kg, ONCE, STAT, Start da te: 04/02/17 8:34:00 SUPERANNUATION [employer]DS MANAGER, Stop date: 04/02/17 8:34:00 SUPER[employer]NUATION [employer]DS MANAGER Start Date: 04/02/17 Stop Date: 04/02/17 Status: Discontinued [place] 10/325 oral tablet See Instructions, PRN Pain Score 7-10, 1-2 tab PO Q4-6H as needed, # 120 tab, 0 Refill(s), given to patient Start Date: 04/06/17 Stop Date: 04/21/17 Status: Completed [place] 10/325 oral tablet 2 tab, Route: PO, Drug Form: TAB, Dosing Weight 88.636, kg, Q4H, PRN Pain Score 4-6, Start date: 04/05/17 18:27:00 SUPER[employer]NUATION [employer]DS MANAGER, Duration: 30 day, Stop date: 05/05/17 18 :26:00 SUPERANNUATION [employer]DS MANAGER Notes: Do not exceed 4gm/day of acetaminophen. (Same as: [place] 325/10) Start Date: 04/05/17 Stop Date: 04/06/17 Status: Discontinued [place] 10/325 oral tablet 1 tab, Route: PO, Drug Form: TAB, Dosing Weight 88.636, kg, Q4H, PRN Pain Score 1-3, Start date: 04/05/17 18:27:00 SUPERANNUATION [employer]DS MANAGER, Duration: 30 day, Stop date: 05/05/17 18 :26:00 SUPERANNUATION [employer]DS MANAGER Notes: Do not exceed 4gm/day of acetaminophen. (Same as: [place] 325/10) Start Date: 04/05/17 Stop Date: 04/06/17 Status: Discontinued [place] 7.5/325 oral tablet 1 tab, Route: PO, Drug Form: TAB, Dosing Weight 88.636, kg, Q4H, PRN Pain Score 4-6, Start date: 04/03/17 14:08:00 SUPERANNUATION [employer]DS MANAGER, Duration: 30 day, Stop date: 05/03/17 14 :07:00 SUPERANNUATION [employer]DS MANAGER Notes: Same as [place] 325-7.5mg Do not exceed 4gm/day of acetaminophen. Start Date: 04/03/17 Stop Date: 04/05/17 Status: Discontinued ondansetron 4 mg, Route: IVP, ONCE, Dosing Weight 88.636, kg, Priority: STAT, Start date: 8:11:00 SUPERANNUATION [employer]DS MANAGER, Stop date: 04/02/17 8:11:00 SUPERANNUATION [employer]DS MANAGER Start Date: 04/02/17 Stop Date: 04/02/17 Status: Completed ondansetron 4 mg, 2 mL, Route: IVP, Drug form: INJ, Q6H, Dosing Weight 88.636, kg, PRN Nause a & Vomiting, Start date: 04/02/17 21:10:00 SUPER[employer]NUATION [employer]DS MANAGER, Duration: 30 day, Stop date: 05/02/17 21:09:00 SUPERANNUATION FUNDS MANAGER Notes: (Same as: Zofran) MEDICATION WASTE Product Size: 4 mgProduct Was sulema: ___ mg Start Date: 04/02/17 Stop Date: 04/06/17 Status: Discontinued ondansetron (ANES) Route: IV, Drug form: INJ, ONCE, Stop date: 04/05/17 18:27:00 SUPERANNUATION [employer]DS MANAGER Start Date: 04/05/17 Stop Date: 04/05/17 Status: Completed Phenergan 25 mg, Route: IVPB, ONCE, Dosing Weight 88.636, kg, Priority: STAT, Start date: 04/02/17 10:08:00 SUPERANNUATION [employer]DS MANAGER, Stop date: 04/02/17 10:08:00 SUPERANNUATION FUNDS MANAGER Start Date: 04/02/17 Stop Date: 04/02/17 Status: Completed Phenergan 25 mg, Route: IVPB, ONCE, Dosing Weight 88.636, kg, Priority: STAT, Start date: 04/02/17 13:17:00 SUPERANNUATION FUNDS MANAGER, Stop date: 04/02/17 13:17:00 SUPERANNUATION FUNDS MANAGER Start Date: 04/02/17 Stop Date: 04/02/17 Status: Completed propofol (ANES) Route: IV, Drug form: INJ, ONCE, Stop date: 04/05/17 18:32:00 SUPERANNUATION [employer]DS MANAGER Start Date: 04/05/17 Stop Date: 04/05/17 Status: Completed Reglan 10 mg, 2 mL, Route: IVP, Drug form: SOLN, ONCE, Dosing Weight 88.636, kg, Priori ty: STAT, Start date: 04/02/17 11:24:00 SUPERANNUATION [employer]DS MANAGER, Stop date: 04/02/17 11:24:00 SUPERANNUATION FUNDS MANAGER Notes: (Same as: Reglan) Start Date: 04/02/17 Stop Date: 04/02/17 Status: Completed rocuronium (ANES) Route: IV, Drug form: INJ, ONCE, Stop date: 04/05/17 18:32:00 SUPERANNUATION [employer]DS MANAGER Start Date: 04/05/17 Stop Date: 04/05/17 Status: Completed Saline Flush 0.9% 10 mL, Route: IVP, Drug Form: INJ, Dosing Weight 88.636, kg, PRN, PRN Line Flush , Start date: 04/02/17 8:11:00 SUPERANNUATION [employer]DS MANAGER, Duration: 30 day, Stop date: 05/02/17 8:10:0 0 SUPERANNUATION [employer]DS MANAGER Notes: Same as: BD Posiflush Sterile Start Date: 04/02/17 Stop Date: 04/06/17 Status: Discontinued Saline Flush 0.9% 10 ml, Route: IVP, Drug Form: INJ, Dosing Weight 88.636, kg, PRN, PRN Line Flush , Start date: 04/02/17 21:10:00 SUPERANNUATION [employer]DS MANAGER, Duration: 30 day, Stop date: 05/02/17 21:09 :00 SUPERANNUATION FUNDS MANAGER Notes: (Same as: BD Posiflush) Start Date: 04/02/17 Stop Date: 04/02/17 Status: Discontinued scopolamine 1.5 mg transdermal film 1 patch, Route: TOP, Drug Form: ERFILM, Dosing Weight 88.636, kg, PRE OP, Start date: 04/05/17 16:00:00 SUPERANNUATION [employer]DS MANAGER, Duration: 30 day, Stop date: 05/05/17 15:59:00 SUPERANNUATION [employer]DS MANAGER Start Date: 04/05/17 Stop Date: 04/05/17 Status: Completed Sodium Chloride 0.9% (Bolus) IV 1,000 mL, Infuse Over: 1 hr, Route: IV, ONCE, Priority: STAT, Dosing Weight 88.6 36 kg, Start date: 04/02/17 8:11:00 SUPERANNUATION [employer]DS MANAGER, Stop date: 04/02/17 8:11:00 SUPERANNUATION [employer]DS MANAGER Start Date: 04/02/17 Stop Date: 04/02/17 Status: Completed Valium 5 mg, 1 mL, Route: IVP, Drug form: INJ, ONCE, Dosing Weight 88.636, kg, Priority : STAT, Start date: 04/02/17 11:53:00 SUPERANNUATION [employer]DS MANAGER, Stop date: 04/02/17 11:53:00 SUPERANNUATION FUNDS MANAGER Notes: (Same as: Valium) Start Date: 04/02/17 Stop Date: 04/02/17 Status: Deleted Valium 5 mg, 1 mL, Route: IVP, Drug form: INJ, ONCE, Dosing Weight 88.636, kg, Priority : STAT, Start date: 04/02/17 11:24:00 SUPERANNUATION [employer]DS MANAGER, Stop date: 04/02/17 11:24:00 SUPERANNUATION [employer]DS MANAGER Notes: (Same as: Valium)WASTE: F/P - Black; E - White/Blue Start Date: 04/02/17 Stop Date: 04/02/17 Status: Deleted Valium 5 mg, 1 mL, Route: IVP, Drug form: INJ, ONCE, Dosing Weight 88.636, kg, Priority : STAT, Start date: 04/02/17 12:06:00 SUPERANNUATION FUNDS MANAGER, Stop date: 04/02/17 12:06:00 SUPERANNUATION FUNDS MANAGER Notes: WASTE: F/P - Black; E - White/Blue Start Date: 04/02/17 Stop Date: 04/02/17 Status: Completed Versed 2 mg, Route: IVP, ONCE, Dosing Weight 88.636, kg, Start date: 04/05/17 15:49:00 SUPERANNUATION [employer]DS MANAGER, Stop date: 04/05/17 15:49:00 SUPERANNUATION [employer]DS MANAGER Start Date: 04/05/17 Stop Date: 04/05/17 Status: Completed Zofran 4 mg, Route: IVP, Drug form: INJ, ONCE, Dosing Weight 88.636, kg, Start date: 19:03:00 SUPERANNUATION FUNDS MANAGER, Stop date: 04/05/17 19:03:00 SUPERANNUATION FUNDS MANAGER Start Date: 04/05/17 Stop Date: 04/05/17 Status: Completed Zofran 4 mg, Route: IVP, Drug form: INJ, ONCE, Dosing Weight 88.636, kg, Priority: STAT , Start date: 04/02/17 9:20:00 SUPERANNUATION [employer]DS MANAGER, Stop date: 04/02/17 9:20:00 SUPERANNUATION [employer]DS MANAGER Start Date: 04/02/17 Stop Date: 04/02/17 Status: Completed Results ELECTROLYTES Most recent to 1 2 oldest [Reference Range]: Sodium Lvl [135-145 139 mEq/L 138 mEq/L mEq/L] (04/03/17 4:54 AM) (04/02/17 8:25 AM) Potassium Lvl 3.6 mEq/L 4.1 mEq/L [3.5-5.1 mEq/L] (04/03/17 4:54 AM) (04/02/17 8:25 AM) Chloride Lvl [95-109 107 mEq/L 106 mEq/L mEq/L] (04/03/17 4:54 AM) (04/02/17 8:25 AM) CO2 [24-32 mEq/L] 23 mEq/L 22 mEq/L *LOW* *LOW* (04/03/17 4:54 AM) (04/02/17 8:25 AM) AGAP [10.0-20.0 12.6 mEq/L 14.1 mEq/L mEq/L] (04/03/17 4:54 AM) (04/02/17 8:25 AM) CHEM PANEL Most recent to 1 2 oldest [Reference Range]: Creatinine Lvl 1.20 mg/dL 0.90 mg/dL [0.50-1.40 mg/dL] (04/03/17 4:54 AM) (04/02/17 8:25 AM) eGFR 56 mL/min/1.73m2 1 80 mL/min/1.73m2 2 *NA* *NA* (04/03/17 4:54 AM) (04/02/17 8:25 AM) BUN [7-22 mg/dL] 21 mg/dL 14 mg/dL (04/03/17 4:54 AM) (04/02/17 8:25 AM) B/C Ratio [6-25] 18 16 (04/03/17 4:54 AM) (04/02/17 8:25 AM) Glucose Lvl [70-99 123 mg/dL 102 mg/dL mg/dL] *HI* *HI* (04/03/17 4:54 AM) (04/02/17 8:25 AM) Total Protein 7.4 g/dL 7.7 g/dL [6.4-8.4 g/dL] (04/03/17 4:54 AM) (04/02/17 8:25 AM) Albumin Lvl [3.5-5.0 4.0 g/dL 4.2 g/dL g/dL] (04/03/17 4:54 AM) (04/02/17 8:25 AM) Globulin [2.7-4.2 3.4 g/dL 3.5 g/dL g/dL] (04/03/17 4:54 AM) (04/02/17 8:25 AM) A/G Ratio [0.7-1.6] 1.2 1.2 (04/03/17 4:54 AM) (04/02/17 8:25 AM) Calcium Lvl 8.9 mg/dL 9.0 mg/dL [8.5-10.5 mg/dL] (04/03/17 4:54 AM) (04/02/17 8:25 AM) ALT [0-65 unit/L] 66 unit/L 81 unit/L *HI* *HI* (04/03/17 4:54 AM) (04/02/17 8:25 AM) AST [0-37 unit/L] 34 unit/L 46 unit/L (04/03/17 4:54 AM) *HI* (04/02/17 8:25 AM) Alk Phos [39-136 97 unit/L 112 unit/L unit/L] (04/03/17 4:54 AM) (04/02/17 8:25 AM) Bili Total [0.2-1.3 0.6 mg/dL 0.4 mg/dL mg/dL] (04/03/17 4:54 AM) (04/02/17 8:25 AM) Lipase Lvl [73-393 162 unit/L unit/L] (04/02/17 8:25 AM) 1Result Comment: The eGFR is calculated using [...] be mul tiplied by the estimated BMI. 2Result Comment: The eGFR is calculated using the [...] be mul tiplied by the estimated BMI. SPECIAL CHEMISTRY Most recent to 03 02 oldest [Reference Range]: Hgb A1C [<=5.6 %] 4.8 % (04/03/17 7:10 PM) URINE AND STOOL Most recent to 03 02 oldest [Reference Range]: UA Turbidity [Clear] Clear (04/02/17 8:45 AM) UA Color Ltyellow *NA* (04/02/17 8:45 AM) UA pH [5.0-8.0] 7.0 (04/02/17 8:45 AM) UA Spec Grav 1.008 [<=1.030] (04/02/17 8:45 AM) UA Glucose [Negative Negative mg/dL mg/dL] *NA* (04/02/17 8:45 AM) UA Blood [Negative] Negative (04/02/17 8:45 AM) UA Ketones [Negative Negative mg/dL mg/dL] *NA* (04/02/17 8:45 AM) UA Protein [Negative Negative mg/dL mg/dL] (04/02/17 8:45 AM) UA Urobilinogen <=1.0 mg/dL [0.1-1.0 mg/dL] *NA* (04/02/17 8:45 AM) UA Bili [Negative] Negative *NA* (04/02/17 8:45 AM) UA Leuk Est Negative [Negative] (04/02/17 8:45 AM) UA Nitrite Negative [Negative] (04/02/17 8:45 AM) UA WBC [0-5 /HPF] <1 /HPF (04/02/17 8:45 AM) UA RBC [0-2 /HPF] 1 /HPF (04/02/17 8:45 AM) UA Sq Epi [Few /LPF] Occasional /LPF *NA* (04/02/17 8:45 AM) HEMATOLOGY Most recent to 1 2 oldest [Reference Range]: WBC [3.7-10.4 K/CMM] 7.7 K/CMM 6.3 K/CMM (04/03/17 4:54 AM) (04/02/17 8:25 AM) RBC [4.20-5.40 4.46 M/CMM 4.77 M/CMM M/CMM] (04/03/17 4:54 AM) (04/02/17 8:25 AM) Hgb [12.0-16.0 g/dL] 13.4 g/dL 14.6 g/dL (04/03/17 4:54 AM) (04/02/17 8:25 AM) Hct [36.0-48.0 %] 39.1 % 42.4 % (04/03/17 4:54 AM) (04/02/17 8:25 AM) MCV [80.0-98.0 fL] 87.6 fL 88.9 fL (04/03/17 4:54 AM) (04/02/17 8:25 AM) MCH [27.0-31.0 pg] 30.0 pg 30.6 pg (04/03/17 4:54 AM) (04/02/17 8:25 AM) MCHC [32.0-36.0 34.3 g/dL 34.4 g/dL g/dL] (04/03/17 4:54 AM) (04/02/17 8:25 AM) RDW [11.5-14.5 %] 13.1 % 13.1 % (04/03/17 4:54 AM) (04/02/17 8:25 AM) MPV [7.4-10.4 fL] 8.1 fL 7.8 fL (04/03/17 4:54 AM) (04/02/17 8:25 AM) Platelet [133-450 284 K/CMM 276 K/CMM K/CMM] (04/03/17 4:54 AM) (04/02/17 8:25 AM) Segs [45.0-75.0 %] 70.4 % 58.0 % (04/03/17 4:54 AM) (04/02/17 8:25 AM) Lymphocytes 20.0 % 32.1 % [20.0-40.0 %] (04/03/17 4:54 AM) (04/02/17 8:25 AM) Monocytes [2.0-12.0 9.5 % 7.5 % %] (04/03/17 4:54 AM) (04/02/17 8:25 AM) Eosinophils [0.0-4.0 1.9 % %] (04/02/17 8:25 AM) Basophils [0.0-1.0 0.1 % 0.5 % %] (04/03/17 4:54 AM) (04/02/17 8:25 AM) Segs-Bands # 5.4 K/CMM 3.7 K/CMM [1.5-8.1 K/CMM] (04/03/17 4:54 AM) (04/02/17 8:25 AM) Lymphocytes # 1.5 K/CMM 2.0 K/CMM [1.0-5.5 K/CMM] (04/03/17 4:54 AM) (04/02/17 8:25 AM) Monocytes # [0.0-0.8 0.7 K/CMM 0.5 K/CMM K/CMM] (04/03/17 4:54 AM) (04/02/17 8:25 AM) Eosinophils # 0.1 K/CMM [0.0-0.5 K/CMM] (04/02/17 8:25 AM) PT [12.0-14.7 13.3 seconds seconds] (04/03/17 4:54 AM) INR [0.85-1.17] 1.01 (04/03/17 4:54 AM) PTT [22.9-35.8 24.6 seconds seconds] (04/03/17 4:54 AM) Immunizations No data available for this section [...] No entered on: 04/28/17 Assessment and Plan Extracted from: Title: Clinical Document Author: Bhupendra Booker MD Date: 04/06/17 Progress Note - Daily [facility] Completed: Apr, 09:13 by Bhupendra Booker MD RM: 89 - [address], SE [id number], [id number] (: 1975) F Attending: Helga Thompsonhone: Service: Internal Medicine Reason for Admission: INTRACTABLE NAUSEA AND VOMITING Working DRG: Esophagitis, gastroent & misc digest disorders w/o [facility] Code status: Full Code [Ordered]Current diet: Isolation: None Documented Allergies: NKDA SUBJECTIVE Patient says that her leg isn't hurting anymore, but her back is sore. OBJECTIVE (no lab data in past 24 hours) [place] still necessary (Yes/No): Line still necessary (Yes/No): VitalsTmp(F)FfopwOCDISkW5CNO2 04/05 19:45----[id number]--- 04/05 19:30----[id number]--- 04/05 19:15----[id number]--- 04/05 19:00----[id number]/m 04/05 18:[id number]/m 24 Hr Tmax: 98.3F (36.83c) at 04/05 10:55Vital Signs are the last 5 in the past 48 hours. DateWt(kg)Wt(lb)Ht(cm)Ht(in)Method 04/05 95.70 210.54Measured 04/04 96.23 211.70Measured 04/02 (initial) 88.64 195.00Estimated .10 65.00Stated I&ORecordInOutBal 04/523hr Tot 837 5 832 04/423hr Tot 28 0 28 Medications (25) Active Scheduled Meds (1): 04/03/17 docusate 100 mg PO BID Unscheduled Meds: None PRN Meds (6): 04/05/17 acetaminophen-hydrocodone ([place] 10/325 oral tablet) 1 tab PO Q4H 04/05/17 acetaminophen-hydrocodone ([place] 10/325 oral tablet) 2 tab PO Q4H 04/02/17 cyclobenzaprine (Flexeril) 10 mg PO TID 04/05/17 hydromorphone (Dilaudid) 4 mg PO Q2H 04/02/17 ondansetron 4 mg IVP Q6H 04/02/17 sodium chloride (Saline Flush 0.9%) 10 mL IVP PRN One Time Meds (16): (Completed) ceFAZolin (ceFAZolin (ANES)) IV ONCE (Completed) dexamethasone (dexamethasone (ANES)) IV ONCE (Completed) esmolol (esmolol (ANES)) IV ONCE (Completed) famotidine (famotidine (ANES)) IV ONCE (Completed) fentaNYL (fentaNYL (ANES)) IV ONCE (Completed) fentaNYL (fentaNYL (ANES)) IV ONCE 04/05/17 (Completed) fentaNYL 50 microgram IV ONCE (Completed) glycopyrrolate (glycopyrrolate (ANES)) IV ONCE (Completed) lidocaine (lidocaine (ANES)) IV ONCE (Completed) midazolam (midazolam (ANES)) IV ONCE 04/05/17 (Completed) midazolam (Versed) 2 mg IVP ONCE (Completed) neostigmine (neostigmine (ANES)) IV ONCE (Completed) ondansetron (ondansetron (ANES)) IV ONCE 04/05/17 (Completed) ondansetron (Zofran) 4 mg IVP ONCE (Completed) propofol (propofol (ANES)) IV ONCE (Completed) rocuronium (rocuronium (ANES)) IV ONCE Continuous Infusions (2): 04/02/17 Dextrose 5% with 0.45% NaCl IV 1,000 mL 1,000 mL 75 ml/hr 04/05/17 Lactated Ringers Injection IV 1,000 mL (LR IV 1,000 mL) 1,000 mL 40 ml/hr ASSESSMENT & EXAM Incision C/D/I Neuro intact L2-S1 PLAN & TREATMENT Okay to d/c from spine surgery standpoint Prescription left on chart for [place] 10 F/u in 2 weeks DIAGNOSES & PROBLEMS Ready for Discharge (Yes/No)? TEACHING ATTESTATION
--- OUTSIDE RECORDS SUMMARY | 2018-06-29 19:40 | XMS REPORT | Summary of Care ---
Author Organization Unknown Address Unknown Phone Unavailable Encounter HQ Michelle(JUAN DIEGO) [id number] Date(s): 07/16/14 - 07/17/[address] [facility] [address] [employer] provided by [facility] [place] [address]- Discharge Disposition: Home Physician Attending: Moriah Reno MD Physician Admitting: Moriah Reno MD Vital Signs 1 2 3 Most recent to oldest [Reference Range]: 165.1 cm (07/16/14 8:21 PM) Height 98.2 DegF (07/17/14 11:30 AM) 97.8 DegF (07/17/14 8:00 AM) 97.0 DegF (07/17/14 3:50 AM) Temperature Oral [96.4-99.1 DegF] 143/92 mmHg *HI* (07/17/14 11:30 AM) 123/88 mmHg (07/17/14 8:00 AM) 130/81 mmHg (07/17/14 3:50 AM) Blood Pressure [90-140/60-90 mmHg] 18 BRMIN (07/17/14 11:30 AM) 20 BRMIN (07/17/14 8:00 AM) 18 BRMIN (07/17/14 3:50 AM) Respiratory Rate [14-20 BRMIN] 82 bpm (07/17/14 11:30 AM) 96 bpm (07/17/14 8:00 AM) 61 bpm (07/17/14 3:50 AM) Peripheral Pulse Rate [60-100 bpm] 88.636 kg (07/16/14 8:21 PM) Weight 32.52 m2 (07/16/14 8:21 PM) Body Mass Index Problem List Condition Effective Dates Status Health Status Informant Blood Resolved clot(Confirmed) Kidney Resolved stone(Confirmed) Stent Resolved replacement(Confirme d) Allergies, Adverse Reactions, Alerts Substance Reaction Severity Status NKDA Active Medications Ativan 1 mg, 1 tab, Route: PO, Drug form: TAB, TID, Dosing Weight 88.636, kg, PRN Anxie ty, Start date: 07/17/14 9:38:00, Duration: 30 day, Stop date: 08/16/14 9:37:00 Notes: (Same as: Ativan) Start Date: 07/17/14 Stop Date: 07/17/14 Status: Discontinued dronabinol 2.5 mg oral capsule 2.5 mg=1 cap, PO, BID, X 14 day, # 28 cap, 0 Refill(s) Start Date: 07/17/14 Stop Date: 07/31/14 Status: Ordered Marinol 2.5 mg, 1 cap, Route: PO, Drug form: CAP, [id number], Dosing Weight 88.636, kg, Sta rt date: 07/17/14 10:00:00, Duration: 30 day, Stop date: 08/15/14 22:00:00 Notes: (Same as: Marinol) Non-Formulary Drug. Start Date: 07/17/14 Stop Date: 07/17/14 Status: Discontinued normal saline 0.9% IV 1,000 mL 1,000 mL, Rate: 100 ml/hr, Infuse over: 10 hr, Route: IV, Dosing Weight 88.636 k g, Total Volume: 1,000, Start date: 07/16/14 21:45:00, Duration: 30 day, Stop da te: 08/15/14 21:44:00 Start Date: 07/16/14 Stop Date: 07/17/14 Status: Discontinued ondansetron 4 mg, 2 mL, Route: IVP, Drug form: INJ, Q8H, Dosing Weight 88.636, kg, PRN Nause a & Vomiting, Start date: 07/16/14 21:37:00, Duration: 30 day, Stop date: 08/15/14 21:36:00 Notes: (Same as: Zofran) MEDICATION WASTE Product Size: 4 mgProduct Was sulema: _0__ mg Start Date: 07/16/14 Stop Date: 07/17/14 Status: Discontinued promethazine 12.5 mg, 1 tab, Route: PO, Drug form: TAB, Q6H, Dosing Weight 88.636, kg, PRN as needed for nausea/vomiting, Start date: 07/16/14 21:37:00, Duration: 30 day, St op date: 08/15/14 21:36:00 Notes: (Same as: Phenergan) Start Date: 07/16/14 Stop Date: 07/17/14 Status: Discontinued promethazine 12.5 mg oral tablet 12.5 mg=1 tab, PO, Q6H, PRN as needed for nausea/vomiting, X 7 day, # 28 tab, 0 Refill(s) Start Date: 07/17/14 Stop Date: 07/24/14 Status: Ordered Protonix PO, Daily, # 30 tab, 0 Refill(s) Start Date: 07/16/14 Stop Date: 08/15/14 Status: Ordered Reglan 10 mg, 2 mL, Route: IVP, Drug form: INJ, Q6H, Dosing Weight 88.636, kg, PRN as n eeded for nausea/vomiting, Priority: STAT, Start date: 07/16/14 21:37:00, Durati on: 30 day, Stop date: 08/15/14 21:36:00 Notes: (Same as: Reglan) Start Date: 07/16/14 Stop Date: 07/17/14 Status: Discontinued Saline Flush 0.9% 10 ml, Route: IVP, Drug Form: INJ, Dosing Weight 88.636, kg, PRN, PRN Line Flush , Start date: 07/16/14 21:37:00, Duration: 30 day, Stop date: 08/15/14 21:36:00 Notes: (Same as: BD Posiflush) Start Date: 07/16/14 Stop Date: 07/17/14 Status: Discontinued scopolamine 1.5 mg transdermal film 1 patch, Route: TOP, Drug Form: ERFILM, Dosing Weight 88.636, kg, Q72H, Start da te: 07/17/14 9:00:00, Duration: 30 day, Stop date: 08/13/14 9:00:00 Notes: Change patch every 72 hours (Same as: Transderm-Scop) Start Date: 07/17/14 Stop Date: 07/17/14 Status: Discontinued scopolamine 1.5 mg transdermal film 1.5 mg=1 patch, TOP, Q72H, # 4 patch, 0 Refill(s) Start Date: 07/17/14 Stop Date: 08/18/14 Status: Ordered Topamax 50 mg, 1 tab, Route: PO, Drug form: TAB, Bedtime, Dosing Weight 88.636, kg, Star t date: 07/17/14 21:00:00, Duration: 30 day, Stop date: 08/15/14 21:00:00 Start Date: 07/17/14 Stop Date: 07/17/14 Status: Canceled Topamax 50 mg oral tablet 50 mg, PO, Bedtime, # 30 tab, 0 Refill(s) Start Date: 07/17/14 Stop Date: 08/16/14 Status: Ordered Results ELECTROLYTES Most recent to 1 oldest [Reference Range]: Sodium Lvl [135-145 144 mEq/L mEq/L] (07/17/14 12:39 AM) Potassium Lvl 3.6 mEq/L [3.5-5.1 mEq/L] (07/17/14 12:39 AM) Chloride Lvl [95-109 110 mEq/L mEq/L] *HI* (07/17/14 12:39 AM) CO2 [24-32 mEq/L] 23 mEq/L *LOW* (07/17/14 12:39 AM) AGAP [10.0-20.0 14.6 mEq/L mEq/L] (07/17/14 12:39 AM) CHEM PANEL Most recent to 1 oldest [Reference Range]: Creatinine Lvl 0.8 mg/dL [0.5-1.4 mg/dL] (07/17/14 12:39 AM) eGFR 94 mL/min/1.73m2 1 *NA* (07/17/14 12:39 AM) BUN [7-22 mg/dL] 10 mg/dL (07/17/14 12:39 AM) B/C Ratio [6-25] 12 (07/17/14 12:39 AM) Glucose Lvl [70-99 139 mg/dL 2 mg/dL] *HI* (07/17/14 12:39 AM) Total Protein 6.6 g/dL [6.4-8.4 g/dL] (07/17/14 12:39 AM) Albumin Lvl [3.5-5.0 3.3 g/dL g/dL] *LOW* (07/17/14 12:39 AM) Globulin [2.0-4.0 3.3 g/dL g/dL] (07/17/14 12:39 AM) A/G Ratio [0.7-1.6] 1.0 (07/17/14 12:39 AM) Calcium Lvl 8.2 mg/dL [8.5-10.5 mg/dL] *LOW* (07/17/14 12:39 AM) ALT [0-65 unit/L] 54 unit/L (07/17/14 12:39 AM) AST [0-37 unit/L] 27 unit/L (07/17/14 12:39 AM) Alk Phos [39-136 93 unit/L unit/L] (07/17/14 12:39 AM) Bili Total [0.2-1.3 0.4 mg/dL mg/dL] (07/17/14 12:39 AM) Lipase Lvl [73-393 66 unit/L unit/L] *LOW* (07/17/14 12:39 AM) 1Result Comment: The eGFR is calculated [...] be mul tiplied by the estimated BMI. 2Interpretive Data: Adult reference range values reflect the clinical guidelines of the [place] [employer]. URINE AND STOOL Most recent to 1 oldest [Reference Range]: UA Turbidity [Clear] Clear (07/16/14 11:29 PM) UA Color [Yellow] Yellow *NA* (07/16/14 11:29 PM) UA pH [5.0-8.0] 6.5 (07/16/14 11:29 PM) UA Spec Grav 1.023 [<=1.030] (07/16/14 11:29 PM) UA Glucose [Negative Negative mg/dL mg/dL] *NA* (07/16/14 11:29 PM) UA Blood [Negative] Negative (07/16/14 11:29 PM) UA Ketones [Negative Negative mg/dL mg/dL] *NA* (07/16/14 11:29 PM) UA Protein [Negative Negative mg/dL mg/dL] (07/16/14 11:29 PM) UA Urobilinogen <=1.0 mg/dL [0.1-1.0 mg/dL] *NA* (07/16/14 11:29 PM) UA Bili [Negative] Negative *NA* (07/16/14 11:29 PM) UA Leuk Est Negative [Negative] (07/16/14 11:29 PM) UA Nitrite Negative [Negative] (07/16/14 11:29 PM) UA WBC [0-5 /HPF] <1 /HPF (07/16/14 11:29 PM) UA Sq Epi [Few /LPF] Few /LPF *NA* (07/16/14 11:29 PM) UA Mucus [None Seen Few /LPF /LPF] *NA* (07/16/14 11:29 PM) HEMATOLOGY Most recent to 1 oldest [Reference Range]: WBC [3.7-10.4 K/CMM] 6.9 K/CMM (07/17/14 12:39 AM) RBC [4.20-5.40 3.89 M/CMM M/CMM] *LOW* (07/17/14 12:39 AM) Hgb [12.0-16.0 g/dL] 12.2 g/dL (07/17/14 12:39 AM) Hct [36.0-48.0 %] 35.3 % *LOW* (07/17/14 12:39 AM) MCV [80.0-98.0 fL] 90.6 fL (07/17/14 12:39 AM) MCH [27.0-31.0 pg] 31.3 pg *HI* (07/17/14 12:39 AM) MCHC [32.0-36.0 34.5 g/dL g/dL] (07/17/14 12:39 AM) RDW [11.5-14.5 %] 13.6 % (07/17/14 12:39 AM) Platelet [133-450 258 K/CMM K/CMM] (07/17/14 12:39 AM) MPV [7.4-10.4 fL] 7.6 fL (07/17/14 12:39 AM) Segs [45.0-75.0 %] 70.8 % (07/17/14 12:39 AM) Lymphocytes 22.1 % [20.0-40.0 %] (07/17/14 12:39 AM) Monocytes [2.0-12.0 6.7 % %] (07/17/14 12:39 AM) Eosinophils [0.0-4.0 0.1 % %] (07/17/14 12:39 AM) Basophils [0.0-1.0 0.3 % %] (07/17/14 12:39 AM) Segs-Bands # 4.9 K/CMM [1.5-8.1 K/CMM] (07/17/14 12:39 AM) Lymphocytes # 1.5 K/CMM [1.0-5.5 K/CMM] (07/17/14 12:39 AM) Monocytes # [0.0-0.8 0.5 K/CMM K/CMM] (07/17/14 12:39 AM) Immunizations No data available for this section Procedures Procedure Date Related Diagnosis Body Site Cholecystectomy Tonsillectomy Social History Social History Type Response Substance Abuse Use: None. Alcohol Never Smoking Status Never smoker; Exposure to Tobacco Smoke None; Cigarette Smoking Last 365 Days No; Reg Smoking Cessation Counseling No Assessment and Plan Extracted from: Title: Clinical Document Author: Enmanuel Chatman MD Date: 07/17/14 Date of Admission: 07/16/14 Date of Discharge: 07/17/14 DIAGNOSIS: Cyclical vomiting syndrome Chronic abdominal pain due to endometriosis CONSULTS: Dr. Morel, Pain PROCEDURES: IVF Chief complaint , HPI & HOSPITAL COURSE: Pt with cyclical vomiting syndrome and endometriosis s/p hysterectomy admitted with acute on chronic abdominal pain, nausea which improved with symptomatic rx. Dr. Morel from Pain consulted and recommended marinol for acute attacks and topamax at bedtime daily. She needs out pt f/u with psychiatry and [facility] Discharge physical exam: GENERAL: Patient awake, alert, oriented to time, place, person. No distress HEENT: no pallor, no icterus, no JVD, no carotid bruit, oral mucosa moist, no thyromegaly LUNGS: normal respiratory effort, Clear to auscultation bilaterally, no wheeze, no crackles CVS: S1, S2 +, Regular rhythm, no murmur, no edema GI: Bowel sounds +, soft, nontender, nondistended, no organomegaly MUSKULOSKELETAL: no restriction of movements NEURO: No focal deficits, normal strength in all extremities PSYCH: normal mood Discharge condition: Stable Discharge to : Home Discharge Meds: Please see home medication reconciliation DC instructions: F/U: PPC in one week Psychiatry in 2 weeks I have seen & examined the patient on the day of discharge Time spent on discharge: Approximately 40 minutes, explaining about the diagnosis, new medications, prescriptions Extracted from: Title: Chronic Pain Consultation Author: Leobardo Morel MD Date: 07/17/14 Chronic Pain CONSULTATION NOTE DATE: 07-17-2014 REFERRING PHYSICIAN: Enmanuel Angeles CONSULTING TEAM: Psychiatry Reason for Consultation: Chronic Abdominal Pain Chief Complaint: Chronic Abdominal Pain History of Present Illness: 38 yr old female with long standing history of nephrolithiasis s/p multiple renal stents, choledcholithiasis s/p lap lorelei, endometriosis s/p CHANA BSO, with chronic abdominal pain with repeated episodes of vomiting. She states that she would experice an prodrome with sweating, face color changes and then episodes of vomiting for throughout the day for 1 - 4 days. She states that these episodes have gotten severe and that due to these frequencies it has significant affected her ability to function. Per her GI, she was worked up via endoscopy, gastroparesis work up all was negative. She states that she thinks that she still has endometriosis in her abdomen that is currently untreated. Per patient she also has significant anxiety, ptsd which stemms from these recurrent attacks. After initiation these repeated vomiting attacks, she would have abdominal pain that is located throughout her abdomen that is not improved with food. She was admitted for another exacerbation. Past Medical History: 1. Cyclical Vomiting Syndrome 2. Endometrosis 3. neophrolithasis Surgical History 1. TAHBSO 2. Choledocholithasis Medications: Outpatient Psychiatric Medications: _ Inpatient Medications: Medications (9) Active Scheduled Meds (3): 07/17/14 dronabinol (Marinol) 2.5 mg PO [id number] 07/17/14 scopolamine (scopolamine 1.5 mg transdermal film) 1 patch TOP Q72H 07/17/14 topiramate (Topamax) 50 mg PO Bedtime Unscheduled Meds: None PRN Meds (5): 07/17/14 LORazepam (Ativan) 1 mg PO TID 07/16/14 metoclopramide (Reglan) 10 mg IVP Q6H 07/16/14 ondansetron 4 mg IVP Q8H 07/16/14 promethazine 12.5 mg PO Q6H 07/16/14 sodium chloride (Saline Flush 0.9%) 10 ml IVP PRN One Time Meds: None Continuous Infusions (1): 07/16/14 Sodium Chloride 0.9% IV 1,000 mL (normal saline 0.9% IV 1,000 mL) 1,000 mL 100 ml/hr Allergies (1) ActiveReaction NKDANone documented Social and Developmental History: negative for ETOH, negative for tobacco, negative for IVDU REVIEW OF SYSTEMS GENERAL: Denies fever; chills; night sweats; unintentional weight loss; weight gain; fatigue EYES: Denies acute vision change; eye pain; photophobia EARS, NOSE & THROAT: Denies ear pain; vertigo; hearing loss; runny nose; sinus pressure; sore throat CV:Denies chest pain; palpitations; orthopnea; syncope RESPIRATORY: Denies shortness of breath; cough; wheezing GI: + abdominal pain; + nausea; vomiting; + indigestion; - diarrhea; - constipation; melena; hematochezia : Denies dysuria; urinary frequency; urinary incontinence; lesions; pain; heavy periods; irregular periods MUSCULOSKELETAL: Denies joint stiffness; pain; swelling; weakness SKIN: Denies rash; lesion; nodule; hair changes; nail changes; breast mass NEURO: Denies headache; seizure; syncope; numbness MENTAL HEALTH: Denies depression; anxiety;hallucination ENDOCRINE: Denies temperature intolerance; tremor; excessive thirst; excessive hunger HEMATOLOGY/LYMPHATIC: Denies easy bruising; easy bleeding; anticoagulant use; history of blood clot; history of transfusion; Phyical Exam GENERAL APPEARANCE: Well developed, well nourished, alert and cooperative, and appears to be in no acute distress. HEAD: normocephalic. EYES: PERRL, EOMI. Fundi normal, vision is grossly intact. EARS: External auditory canals and tympanic membranes clear, hearing grossly intact. NOSE: No nasal discharge. THROAT: Oral cavity and pharynx normal. No inflammation, swelling, exudate, or lesions. Teeth and gingiva in good general condition. NECK: Neck supple, non-tender without lymphadenopathy, masses or thyromegaly. CARDIAC: Normal S1 and S2. No S3, S4 or murmurs. Rhythm is regular. There is no peripheral edema, cyanosis or pallor. Extremities are warm and well perfused. Capillary refill is less than 2 seconds. No carotid bruits. LUNGS: Clear to auscultation and percussion without rales, rhonchi, wheezing or diminished breath sounds. ABDOMEN: Positive bowel sounds. Soft, nondistended, nontender. No guarding or rebound. No masses. MUSCULOSKELETAL: Adequately aligned spine. ROM intact spine and extremities. No joint erythema or tenderness. Normal muscular development. Normal gait. BACK: Examination of the spine reveals normal gait and posture, no spinal deformity, symmetry of spinal muscles, without tenderness, decreased range of motion or muscular spasm. EXTREMITIES: No significant deformity or joint abnormality. No edema. Peripheral pulses intact. No varicosities. LOWER EXTREMITY: Examination of both feet reveals all toes to be normal in size and symmetry, normal range of motion, normal sensation with distal capillary filling of less than 2 seconds without tenderness, swelling, discoloration, nodules, weakness or deformity; examination of both ankles, knees, legs, and hips reveals normal range of motion, normal sensation without tenderness, swelling, discoloration, crepitus, weakness or deformity. NEUROLOGICAL: CN II-XII intact. Strength and sensation symmetric and intact throughout. Reflexes 2+ throughout. Cerebellar testing normal. SKIN: Skin normal color, texture and turgor with no lesions or eruptions. PSYCHIATRIC: The mental examination revealed the patient was oriented to person, place, and time. The patient was able to demonstrate good judgement and reason, without hallucinations, abnormal affect or abnormal behaviors during the examination. Patient is not suicidal. GENITALIA: Genital exam revealed normally developed male genitalia. No scrotal mass or tenderness, no hernias or inquinal lymphadenopathy. No perineal or perianal abnormalities are seen. No genital lesions or urethral discharge. BREASTS: No masses, tenderness, asymmetry, nipple discharge or axillary lymphadenopathy. PELVIC: Normally developed external female genitalia with no external lesions or eruptions. Vagina and cervix have no lesions, inflammation, discharge or tenderness. Cervix is nontender. Uterus is within normal limits with no adnexal fullness. VS/Laboratory Data: VitalsTmp(F)[id number] 07/17 11:[id number]--- 07/17 08:[id number]--- 07/17 03:5097.419909/[id number]--- 07/16 23:[id number]--- 07/16 20:[id number]--- 24 Hr Tmax: 98.2F (36.78c) at 07/17 11:30Vital Signs are the last 5 in the past 48 hours. 24hr Labs 07/17 0039 Lipase Lvl66 L Sodium Xmj698 Potassium Lvl3.6 Chloride Okb083 H CO223 L AGAP14.6 Glucose Wai840 H Creatinine Lvl0.8 BUN10 B/C Ratio12 Total Protein6.6 Albumin Lvl3.3 L Globulin3.3 A/G Ratio1.0 Calcium Lvl8.2 L ALT54 AST27 Alk Phos93 Bili Total0.4 eGFR94 WBC6.9 RBC3.89 L Hgb12.2 Hct35.3 L MCV90.6 MCH31.3 H MCHC34.5 RDW13.6 Hxdfbdbu855 MPV7.6 Segs70.8 Monocytes6.7 Ryodmjsjrip15.1 Eosinophils0.1 Basophils0.3 Segs-Bands #4.9 Lymphocytes #1.5 Monocytes #0.5 07/169 UA ColorYellow UA TurbidityClear UA Spec Grav1.023 UA pH6.5 UA ProteinNegative UA GlucoseNegative UA KetonesNegative UA BiliNegative UA BloodNegative UA Urobilinogen<=1.0 UA NitriteNegative UA Leuk EstNegative UA WBC<1 UA MucusFew UA Sq EpiFew Assessment: 36 yr old with hx of likely cyclical vomiting syndrome, endometriosis s/p TAHBSO, Cholelithiasis s/p lap lorelei with chronic vomiting syndrome followed by abdominal pain - I believe that her abdominal pain is likely due to retching due to cyclical vomiting syndrome - Due to cyclical vomiting syndrome recommend the following: Identifying the enviromental triggers and psycosocial issues, Start Prophalactic Medication and have PRN medication for the acute exacerbation phases. Recommendations: 1. Patient needs an psycologist and psyciatrist to identify her psycosocial issues and manager game her known PTSD, and Generalized Anxiety Disorder 2. Recommend a trial of Topamax 50 mg QHS as an propholactic medication since She failed Amytriptyline due to excessive weight gain. 3. Recommend PO Ondesetron, Phenergan and small doses of marinol at 2.5 mg PO PRN for during the acute exacerbations. Extracted from: Title: Hospitalist History and Author: Rosa Hubbard MD Date: 07/16/14 Physical Assessment/Plan 38 yo woman history of renal stones, endometriosis presents with acute on chronic abdominal pain and intractable nausea, vomiting. 1.Abdominal pain dull constant ache; s/p gallbladder removal, hysterectomy. no bowel obstruction or colitis on CT scan. Possible cyclical vomiting syndrome vs microlithiasisw/retained gallstones vs renal stone not visible onCT scan secondary to contrast. -start IVF, pain control -obtain ua to eval for infection or blood -monitor LFTs -advance diet as tolerated -if pt able to tolerate po w/sx improvement outpt GI follow up 2.Vomiting secondary to above -start zofran, phenergan, reglan prn Prophylaxis SCDs Disposition pending po tolerance Hospitalist is primary please page [phone] with questions/concerns
--- OUTSIDE RECORDS SUMMARY | 2018-06-29 19:40 | XMS REPORT | Summary of Care ---
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) - Unspecified urinary incontinence (Final) - Discharge Disposition: Home or Self Care Attending Physician: Raúl Payan MD Admitting Physician: Raúl Payan MD Vital Signs 1 2 3 Most recent to oldest [Reference Range]: 165.1 cm (04/28/17 5:45 AM) 165.1 cm (04/27/17 7:37 PM) Height 97.7 DegF (04/30/17 3:00 PM) 98.3 DegF (04/30/17 11:41 AM) 97.5 DegF (04/30/17 7:00 AM) Temperature Oral [96.4-99.1 DegF] 140/90 mmHg (04/30/17 3:45 PM) 132/86 mmHg (04/30/17 3:00 PM) 143/91 mmHg *HI* (04/30/17 2:45 PM) Blood Pressure [90-140/60-90 mmHg] 18 BRMIN (04/30/17 3:00 PM) 24 BRMIN *HI* (04/30/17 12:25 PM) 18 BRMIN (04/30/17 11:41 AM) Respiratory Rate [14-20 BRMIN] 92 bpm (04/30/17 3:45 PM) 100 bpm (04/30/17 3:00 PM) 94 bpm (04/30/17 2:45 PM) Peripheral Pulse Rate [60-100 bpm] 90.909 kg (04/28/17 11:32 AM) 90.909 kg (04/28/17 5:45 AM) 90.909 kg (04/27/17 7:37 PM) Weight 33.35 m2 (04/28/17 5:45 AM) 33.35 m2 (04/27/17 7:37 PM) Body Mass Index Problem List Condition Effective Dates Status Health Status Informant Kidney Resolved stone(Confirmed) Stent Resolved replacement(Confirme d) Allergies, Adverse Reactions, Alerts Substance Reaction Severity Status NKDA Active Medications acetaminophen 650 mg, 2 tab, Route: PO, Drug form: TAB, Q4H, Dosing Weight 90.909, kg, PRN Izzy n 1-3/Temp > 100.4 F, Start date: 04/29/17 13:19:00 STAFFING OPERATIONS MANAGER, Duration: 30 day, Stop date: 05/29/17 13:18:00 CDT Notes: Do not exceed 4 gm/day. (Same as: Tylenol) Start Date: 04/29/17 Stop Date: 04/30/17 Status: Discontinued acetaminophen-codeine #3 2 tab, Route: PO, Drug Form: TAB, Dosing Weight 90.909, kg, Q4H, PRN Pain Score 4-6, Start date: 04/29/17 13:19:00 STAFFING OPERATIONS MANAGER, Duration: 30 day, Stop date: 05/29/17 13 :18:00 CDT Notes: Do not exceed 4gm/day of acetaminophen. (Same as: Tylenol with Codeine # 3) Start Date: 04/29/17 Stop Date: 04/30/17 Status: Discontinued acetaminophen-hydrocodone 325 mg-5 mg oral tablet 2 tab, Route: PO, Drug Form: TAB, Dosing Weight 90.909, kg, Q4H, PRN Pain Score 7-10, Start date: 04/28/17 6:35:00 STAFFING OPERATIONS MANAGER, Duration: 30 day, Stop date: 05/28/17 6: 34:00 CDT Notes: (Same as: [place] 325/5) Do not exceed 4gm/day of acetaminophen. Start Date: 04/28/17 Stop Date: 04/30/17 Status: Discontinued ANES fentaNYL 25 microgram, Route: IVP, Q5Min, Dosing Weight 90.909, kg, PRN Pain Score 4-6, P riority: Routine, Start date: 04/29/17 13:38:00 STAFFING OPERATIONS MANAGER, Duration: 4 doses or times, Stop date: Limited # of times Start Date: 04/29/17 Stop Date: 04/29/17 Status: Discontinued ANES flumazenil 0.2 mg, Route: IVP, PRN, Dosing Weight 90.909, kg, PRN Benzodiazepine Reversal, Initial dose, Start date: 04/29/17 13:38:00 STAFFING OPERATIONS MANAGER, Duration: 30 day, Stop date: 14:37:00 CDT Start Date: 04/29/17 Stop Date: 04/29/17 Status: Discontinued ANES labetalol 10 mg, Route: IVP, Q5Min, Dosing Weight 90.909, kg, PRN Elevated BP, Start date: 04/29/17 13:38:00 STAFFING OPERATIONS MANAGER, Duration: 5 doses or times, Stop date: Limited # of times Start Date: 04/29/17 Stop Date: 04/29/17 Status: Discontinued ANES naloxone 0.4 mg, Route: IVP, Q2MIN, Dosing Weight 90.909, kg, PRN Narcotic Reversal, Star t date: 04/29/17 13:38:00 STAFFING OPERATIONS MANAGER, Duration: 8 doses or times, Stop date: Limited # of times Start Date: 04/29/17 Stop Date: 04/29/17 Status: Discontinued ANES ondansetron 4 mg, Route: IVP, ONCE, Dosing Weight 90.909, kg, PRN Nausea & Vomiting, Start date: 04/29/17 13:38:00 STAFFING OPERATIONS MANAGER Start Date: 04/29/17 Stop Date: 04/29/17 Status: Discontinued cefTRIAXone 1 gm, Route: IVPB, ONCE, Dosing Weight 90.909, kg, Priority: STAT, Start date: 0 04/28/17 4:45:00 STAFFING OPERATIONS MANAGER, Stop date: 04/28/17 4:45:00 STAFFING OPERATIONS MANAGER, ABX Indication: Urinary Tr act Infection Start Date: 04/28/17 Stop Date: 04/28/17 Status: Completed Cipro I.V. 400 mg/200 mL intravenous solution 400 mg, 200 mL, Route: IVPB, Drug form: INJ, [id number], Dosing Weight 90.909, kg, Start date: 04/29/17 11:00:00 STAFFING OPERATIONS MANAGER, Duration: 1 day, Stop date: 04/29/17 23:00:00 STAFFING OPERATIONS MANAGER, ABX Indication: Surgical Prophylaxis Notes: Do not refrigerate Start Date: 04/29/17 Stop Date: 04/29/17 Status: Discontinued dexamethasone (ANES) Route: IV, Drug form: INJ, ONCE, Stop date: 04/29/17 13:13:00 STAFFING OPERATIONS MANAGER Start Date: 04/29/17 Stop Date: 04/29/17 Status: Completed Dilaudid 1 mg, Route: IVP, ONCE, Dosing Weight 90.909, kg, Priority: STAT, Start date: 13:54:00 STAFFING OPERATIONS MANAGER, Stop date: 04/30/17 13:54:00 STAFFING OPERATIONS MANAGER Start Date: 04/30/17 Stop Date: 04/30/17 Status: Discontinued Dilaudid 1 mg, 1 mL, Route: IVP, Drug form: SOLN, ONCE, Dosing Weight 90.909, kg, Start d ate: 04/30/17 13:56:00 STAFFING OPERATIONS MANAGER, Stop date: 04/30/17 13:56:00 STAFFING OPERATIONS MANAGER Notes: (Same as: Dilaudid) Start Date: 04/30/17 Stop Date: 04/30/17 Status: Completed docusate 100 mg, 1 cap, Route: PO, Drug form: CAP, BID, Dosing Weight 90.909, kg, Start d ate: 04/28/17 9:00:00 STAFFING OPERATIONS MANAGER, Duration: 30 day, Stop date: 05/27/17 17:00:00 CDT Notes: (Same as: Colace) (Do Not Crush) Start Date: 04/28/17 Stop Date: 04/30/17 Status: Discontinued famotidine 20 mg, Route: IVP, ONCE, Dosing Weight 90.909, kg, Priority: STAT, Start date: 0 04/28/17 2:29:00 STAFFING OPERATIONS MANAGER, Stop date: 04/28/17 2:29:00 STAFFING OPERATIONS MANAGER Start Date: 04/28/17 Stop Date: 04/28/17 Status: Completed fentaNYL 50 microgram, Route: IV, Q5Min, Dosing Weight 90.909, kg, PRN Pain Score 7-10, S tart date: 04/29/17 13:39:00 STAFFING OPERATIONS MANAGER, Duration: 4 doses or times, Stop date: Limited # of times Start Date: 04/29/17 Stop Date: 04/29/17 Status: Discontinued fentaNYL (ANES) Route: IV, Drug form: INJ, ONCE, Stop date: 04/29/17 13:03:00 STAFFING OPERATIONS MANAGER Start Date: 04/29/17 Stop Date: 04/29/17 Status: Completed Flagyl 500 mg, 100 mL, Route: IVPB, Drug form: INJ, [id number], Dosing Weight 90.909, kg, S tart date: 04/28/17 7:00:00 STAFFING OPERATIONS MANAGER, Duration: 10 day, Stop date: 05/07/17 23:00:00 STAFFING OPERATIONS MANAGER, ABX Indication: Infectious Diarrhea Notes: (Same as: Flagyl) Avoid alcohol. Start Date: 04/28/17 Stop Date: 04/30/17 Status: Discontinued Flagyl 500 mg, 100 mL, Route: IVPB, Drug form: INJ, ONCE, Dosing Weight 90.909, kg, Cindy ority: STAT, Start date: 04/28/17 4:45:00 STAFFING OPERATIONS MANAGER, Stop date: 04/28/17 4:45:00 STAFFING OPERATIONS MANAGER, ABX Indication: Infectious Diarrhea Notes: (Same as: Flagyl) Avoid alcohol. Start Date: 04/28/17 Stop Date: 04/28/17 Status: Completed hydromorphone 1 mg, 0.5 tab, Route: PO, Drug form: TAB, Q3H, Dosing Weight 90.909, kg, PRN Izzy n Score 7-10, Start date: 04/29/17 13:19:00 STAFFING OPERATIONS MANAGER, Stop date: 05/29/17 13:18:00 CD T Notes: (Same as: Dilaudid) Start Date: 04/29/17 Stop Date: 04/30/17 Status: Discontinued ketOROLAC 30 mg/mL injectable solution 30 mg, 1 mL, Route: IVP, Drug form: INJ, ONCE, Dosing Weight 90.909, kg, Priorit y: STAT, Start date: 04/30/17 13:54:00 STAFFING OPERATIONS MANAGER, Stop date: 04/30/17 13:54:00 STAFFING OPERATIONS MANAGER Notes: (Same as:Toradol) IV bolus must be given >15 seconds. Give IM administration slowly and deeply into the muscle.Not for use > 4 days MEDICATION WASTE Product Size: 30 mgProduct Wasted: ___ mg Start Date: 04/30/17 Stop Date: 04/30/17 Status: Completed Lactated Ringers Injection IV (ANES) 1000 mL Route: IV, Total Volume: 1,000, Start date: 04/29/17 12:15:00 STAFFING OPERATIONS MANAGER, Stop date: 13:15:00 STAFFING OPERATIONS MANAGER Start Date: 04/29/17 Stop Date: 04/29/17 Status: Completed Lactated Ringers Injection IV 1,000 mL 1,000 mL, Rate: 100 ml/hr, Infuse over: 10 hr, Route: IV, Dosing Weight 90.909 k g, Total Volume: 1,000, Start date: 04/29/17 13:19:00 STAFFING OPERATIONS MANAGER, Duration: 30 day, Sto p date: 05/29/17 13:18:00 CDT, 2.07, m2 Start Date: 04/29/17 Stop Date: 04/30/17 Status: Discontinued Lactated Ringers Injection IV 1000 mL 1,000 mL, Rate: 25 ml/hr, Infuse over: 40 hr, Route: IV, Dosing Weight 90.909 kg , Total Volume: 1,000, Start date: 04/29/17 12:18:00 STAFFING OPERATIONS MANAGER, Duration: 30 day, Stop date: 05/29/17 12:17:00 CDT, 2.07, m2 Start Date: 04/29/17 Stop Date: 04/29/17 Status: Discontinued Lactated Ringers IV 1000 mL 1,000 mL, Rate: 40 ml/hr, Infuse over: 25 hr, Route: IV, Dosing Weight 90.909 kg , Total Volume: 1,000, Start date: 04/29/17 12:15:00 STAFFING OPERATIONS MANAGER, Duration: 30 day, Stop date: 05/29/17 12:14:00 CDT, 2.07, m2 Start Date: 04/29/17 Stop Date: 04/29/17 Status: Discontinued lidocaine (ANES) Route: IV, Drug form: INJ, ONCE, Stop date: 04/29/17 13:03:00 STAFFING OPERATIONS MANAGER Start Date: 04/29/17 Stop Date: 04/29/17 Status: Completed metoclopramide 10 mg, Route: IVP, Drug form: INJ, ONCE, Dosing Weight 90.909, kg, Priority: STA T, Start date: 04/28/17 2:29:00 STAFFING OPERATIONS MANAGER, Stop date: 04/28/17 2:29:00 STAFFING OPERATIONS MANAGER Start Date: 04/28/17 Stop Date: 04/28/17 Status: Completed midazolam (ANES) Route: IV, Drug form: SOLN, ONCE, Stop date: 04/29/17 13:03:00 STAFFING OPERATIONS MANAGER Start Date: 04/29/17 Stop Date: 04/29/17 Status: Completed morphine Sulfate 4 mg, 1 mL, Route: IVP, Drug form: SOLN, ONCE, Dosing Weight 90.909, kg, Priorit y: STAT, Start date: 04/30/17 10:01:00 STAFFING OPERATIONS MANAGER, Stop date: 04/30/17 10:01:00 STAFFING OPERATIONS MANAGER Notes: (Same as:MORPhine Sulfate) Start Date: 04/30/17 Stop Date: 04/30/17 Status: Completed morphine Sulfate 12 mg, 6 mL, Route: PO, Drug form: SOLN, Q4H, PRN Pain Score 4-6, Start date: 14:29:00 STAFFING OPERATIONS MANAGER, Duration: 30 day, Stop date: 05/29/17 14:28:00 CDT Notes: (Same as:MORPhine Sulfate) Start Date: 04/29/17 Stop Date: 04/29/17 Status: Voided With Results morphine Sulfate 4 mg, 1 mL, Route: IVP, Drug form: SOLN, ONCE, Dosing Weight 90.909, kg, Priorit y: STAT, Start date: 04/29/17 14:24:00 STAFFING OPERATIONS MANAGER, Stop date: 04/29/17 14:24:00 STAFFING OPERATIONS MANAGER Notes: (Same as:MORPhine Sulfate) Start Date: 04/29/17 Stop Date: 04/29/17 Status: Completed morphine Sulfate 12 mg, 6 mL, Route: PO, Drug form: SOLN, Q4H, PRN Pain Score 7-10, Start date: 0 04/29/17 16:37:00 STAFFING OPERATIONS MANAGER, Stop date: 05/29/17 16:36:00 CDT Notes: (Same as:MORPhine Sulfate) Start Date: 04/29/17 Stop Date: 04/30/17 Status: Discontinued morphine Sulfate 4 mg, Route: IVP, Q4H, Dosing Weight 90.909, kg, PRN Pain Score 7-10, Start date : 04/29/17 14:24:00 STAFFING OPERATIONS MANAGER, Duration: 30 day, Stop date: 05/29/17 14:23:00 CDT Start Date: 04/29/17 Stop Date: 04/29/17 Status: Deleted ondansetron 4 mg, 2 mL, Route: IVP, Drug form: INJ, Q6H, Dosing Weight 90.909, kg, PRN Nause a & Vomiting, Start date: 04/29/17 13:19:00 STAFFING OPERATIONS MANAGER, Duration: 30 day, Stop date: 05/29/17 13:18:00 CDT Notes: (Same as: Roshni) MEDICATION WASTE Product Size: 4 mgProduct Was sulema: ___ mg Start Date: 04/29/17 Stop Date: 04/30/17 Status: Discontinued ondansetron (ANES) Route: IV, Drug form: INJ, ONCE, Stop date: 04/29/17 13:13:00 STAFFING OPERATIONS MANAGER Start Date: 04/29/17 Stop Date: 04/29/17 Status: Completed oxybutynin 5 mg, 1 tab, Route: PO, Drug form: TAB, TID, Dosing Weight 90.909, kg, PRN Bladd er Spasm, Start date: 04/29/17 13:19:00 STAFFING OPERATIONS MANAGER, Duration: 30 day, Stop date: 13:18:00 CDT Notes: Same as: Ditropan) Start Date: 04/29/17 Stop Date: 04/30/17 Status: Discontinued oxybutynin 5 mg oral tablet 5 mg=1 tab, PO, TID, PRN Bladder Spasm, # 15 tab, 0 Refill(s), Pharmacy: [facility] [id number] Start Date: 04/30/17 Stop Date: 05/05/17 Status: Ordered potassium chloride 40 mEq, 2 tab, Route: PO, Drug form: ERTAB, ONCE, Dosing Weight 90.909, kg, Prio rity: NOW, Start date: 04/30/17 7:49:00 STAFFING OPERATIONS MANAGER, Stop date: 04/30/17 7:49:00 STAFFING OPERATIONS MANAGER Notes: (Same as: K-Dur 20)"Do Not Crush" With food and full glass of water Start Date: 04/30/17 Stop Date: 04/30/17 Status: Completed potassium chloride + Sodium Chloride 0.9% IV 95 mL 10 mEq, 5 mL, Route: IVPB, Q1H, Dosing Weight 90.909, kg, Total Dose=20 meq, Sta rt date: 04/28/17 7:00:00 STAFFING OPERATIONS MANAGER, Duration: 2 doses or times, Stop date: 04/28/17 8 :00:00 STAFFING OPERATIONS MANAGER, Peripheral Line Notes: MUST be Diluted before use(Same as: KCl) MEDICATION WASTE Product Size: 40 mEqProduct Wasted: ___ mEq Start Date: 04/28/17 Stop Date: 04/28/17 Status: Completed potassium chloride + Sodium Chloride 0.9% IV 95 mL 10 mEq, 5 mL, Route: IVPB, Q1H, Dosing Weight 90.909, kg, Total Dose=40 mEq; Per ipheral Line, Start date: 04/28/17 13:00:00 STAFFING OPERATIONS MANAGER, Duration: 4 doses or times, Sto p date: 04/28/17 16:00:00 STAFFING OPERATIONS MANAGER Notes: MUST be Diluted before use(Same as: KCl) MEDICATION WASTE Product Size: 40 mEqProduct Wasted: ___ mEq Start Date: 04/28/17 Stop Date: 04/28/17 Status: Completed potassium chloride + Sodium Chloride 0.9% IV 95 mL 10 mEq, 5 mL, Route: IVPB, Q1H, Dosing Weight 90.909, kg, Total Dose=20 meq, Sta rt date: 04/28/17 3:00:00 STAFFING OPERATIONS MANAGER, Duration: 2 doses or times, Stop date: 04/28/17 4 :00:00 STAFFING OPERATIONS MANAGER, Peripheral Line Notes: MUST be Diluted before use(Same as: KCl) MEDICATION WASTE Product Size: 40 mEqProduct Wasted: 30 mEq Start Date: 04/28/17 Stop Date: 04/28/17 Status: Completed propofol (ANES) Route: IV, Drug form: INJ, ONCE, Stop date: 04/29/17 13:03:00 STAFFING OPERATIONS MANAGER Start Date: 04/29/17 Stop Date: 04/29/17 Status: Completed Rocephin + sterile water 10 mL 1 gm, Route: IV, [id number], Dosing Weight 90.909, kg, Start date: 04/29/17 8:00:00 STAFFING OPERATIONS MANAGER, Duration: 10 day, Stop date: 05/08/17 8:00:00 STAFFING OPERATIONS MANAGER, ABX Indication: Infecti ous Diarrhea Notes: (Same As: Rocephin).Use with 100 mL NS and infuse over 30 min MEDICA TION WASTE Product Size: 1000 mgProduct Wasted: ___ mg Start Date: 04/29/17 Stop Date: 04/30/17 Status: Discontinued Rocephin + sterile water 10 mL 1 gm, Route: IV, [id number], Dosing Weight 90.909, kg, Start date: 04/28/17 7:00:00 STAFFING OPERATIONS MANAGER, Duration: 10 day, Stop date: 05/07/17 7:00:00 STAFFING OPERATIONS MANAGER, ABX Indication: Infecti ous Diarrhea Notes: (Same As: Rocephin).Use with 100 mL NS and infuse over 30 min MEDICA TION WASTE Product Size: 1000 mgProduct Wasted: ___ mg Start Date: 04/28/17 Stop Date: 04/28/17 Status: Discontinued Saline Flush 0.9% 10 ml, Route: IVP, Drug Form: INJ, Dosing Weight 90.909, kg, PRN, PRN Line Flush , Start date: 04/28/17 6:35:00 STAFFING OPERATIONS MANAGER, Duration: 30 day, Stop date: 05/28/17 7:34:0 0 CDT Notes: (Same as: BD Posiflush) Start Date: 04/28/17 Stop Date: 04/30/17 Status: Discontinued Saline Flush 0.9% 10 mL, Route: IVP, Drug Form: INJ, Dosing Weight 90.909, kg, PRN, PRN Line Flush , Start date: 04/27/17 19:42:00 STAFFING OPERATIONS MANAGER, Duration: 30 day, Stop date: 05/27/17 20:41 :00 CDT Notes: (Same as: BD Posiflush) Start Date: 04/27/17 Stop Date: 04/29/17 Status: Discontinued Sodium Chloride 0.9% (Bolus) IV 1,000 mL, Infuse Over: 1 hr, Route: IV, ONCE, Priority: STAT, Dosing Weight 90.9 09 kg, Start date: 04/28/17 2:29:00 STAFFING OPERATIONS MANAGER, Stop date: 04/28/17 2:29:00 STAFFING OPERATIONS MANAGER Start Date: 04/28/17 Stop Date: 04/28/17 Status: Completed Sodium Chloride 0.9% IV 1,000 mL 1,000 mL, Rate: 100 ml/hr, Infuse over: 10 hr, Route: IV, Dosing Weight 90.909 k g, Total Volume: 1,000, Start date: 04/28/17 5:02:00 STAFFING OPERATIONS MANAGER, Duration: 30 day, Stop date: 05/28/17 5:01:00 CDT, 2.07, m2 Start Date: 04/28/17 Stop Date: 04/29/17 Status: Discontinued Sodium Chloride 0.9% IV 1,000 mL 1,000 mL, Rate: 125 ml/hr, Infuse over: 8 hr, Route: IV, Dosing Weight 90.909 kg , Total Volume: 1,000, Start date: 04/28/17 6:35:00 STAFFING OPERATIONS MANAGER, Duration: 30 day, Stop date: 05/28/17 6:34:00 CDT, 2.07, m2 Start Date: 04/28/17 Stop Date: 04/29/17 Status: Discontinued Zofran 4 mg, 2 mL, Route: IVP, Drug form: INJ, Q4H, Dosing Weight 90.909, kg, PRN Nause a, Start date: 04/28/17 9:01:00 STAFFING OPERATIONS MANAGER, Duration: 30 day, Stop date: 05/28/17 9:00: 00 CDT Notes: (Same as: Zofran) MEDICATION WASTE Product Size: 4 mgProduct Was sulema: ___ mg Start Date: 04/28/17 Stop Date: 04/30/17 Status: Discontinued Zofran 4 mg, 2 mL, Route: IVP, Drug form: INJ, ONCE, Dosing Weight 90.909, kg, PRN Naus ea, Priority: STAT, Start date: 04/30/17 10:01:00 STAFFING OPERATIONS MANAGER Notes: (Same as: Roshni) MEDICATION WASTE Product Size: 4 mgProduct Was sulema: ___ mg Start Date: 04/30/17 Stop Date: 04/30/17 Status: Completed Results ELECTROLYTES 1 2 3 Most recent to oldest [Reference Range]: 141 mEq/L (04/30/17 4:48 AM) 143 mEq/L (04/29/17 5:52 AM) 135 mEq/L (04/28/17 1:55 AM) Sodium Lvl [135-145 mEq/L] 3.3 mEq/L *LOW* (04/30/17 4:48 AM) 3.5 mEq/L (04/29/17 5:52 AM) 2.9 mEq/L 1 *CRIT* (04/28/17 2:21 PM) Potassium Lvl [3.5-5.1 mEq/L] 105 mEq/L (04/30/17 4:48 AM) 108 mEq/L (04/29/17 5:52 AM) 95 mEq/L (04/28/17 1:55 AM) Chloride Lvl [95-109 mEq/L] 25 mEq/L (04/30/17 4:48 AM) 25 mEq/L (04/29/17 5:52 AM) 28 mEq/L (04/28/17 1:55 AM) CO2 [24-32 mEq/L] 14.3 mEq/L (04/30/17 4:48 AM) 13.5 mEq/L (04/29/17 5:52 AM) 14.7 mEq/L (04/28/17 1:55 AM) AGAP [10.0-20.0 mEq/L] 1Result Comment: Critical Result(s) called to Estela Boudreaux at 04/28/2017 14:43 by DMF. Read back OK. CHEM PANEL 1 2 3 Most recent to oldest [Reference Range]: 0.73 mg/dL (04/30/17 4:48 AM) 0.75 mg/dL (04/29/17 5:52 AM) 1.28 mg/dL (04/28/17 1:55 AM) Creatinine Lvl [0.50-1.40 mg/dL] 102 mL/min/1.73m2 1 *NA* (04/30/17 4:48 AM) 99 mL/min/1.73m2 2 *NA* (04/29/17 5:52 AM) 52 mL/min/1.73m2 3 *NA* (04/28/17 1:55 AM) eGFR 8 mg/dL (04/30/17 4:48 AM) 12 mg/dL (04/29/17 5:52 AM) 16 mg/dL (04/28/17 1:55 AM) BUN [7-22 mg/dL] 16 (04/29/17 5:52 AM) 12 (04/28/17 1:55 AM) B/C Ratio [6-25] 92 mg/dL (04/30/17 4:48 AM) 90 mg/dL (04/29/17 5:52 AM) 125 mg/dL *HI* (04/28/17 1:55 AM) Glucose Lvl [70-99 mg/dL] 5.6 g/dL *LOW* (04/29/17 5:52 AM) 8.4 g/dL (04/28/17 1:55 AM) Total Protein [6.4-8.4 g/dL] 2.8 g/dL *LOW* (04/29/17 5:52 AM) 4.6 g/dL (04/28/17 1:55 AM) Albumin Lvl [3.5-5.0 g/dL] 2.8 g/dL (04/29/17 5:52 AM) 3.8 g/dL (04/28/17 1:55 AM) Globulin [2.7-4.2 g/dL] 1.0 (04/29/17 5:52 AM) 1.2 (04/28/17 1:55 AM) A/G Ratio [0.7-1.6] 8.0 mg/dL *LOW* (04/30/17 4:48 AM) 7.8 mg/dL *LOW* (04/29/17 5:52 AM) 9.3 mg/dL (04/28/17 1:55 AM) Calcium Lvl [8.5-10.5 mg/dL] 2.6 mg/dL (04/30/17 4:48 AM) 3.2 mg/dL (04/29/17 5:52 AM) Phosphorus [2.5-4.5 mg/dL] 1.9 mg/dL (04/30/17 4:48 AM) 2.0 mg/dL (04/29/17 5:52 AM) Magnesium Lvl [1.8-2.4 mg/dL] 68 unit/L *HI* (04/29/17 5:52 AM) 136 unit/L *HI* (04/28/17 1:55 AM) ALT [0-65 unit/L] 15 unit/L (04/29/17 5:52 AM) 27 unit/L (04/28/17 1:55 AM) AST [0-37 unit/L] 87 unit/L (04/29/17 5:52 AM) 128 unit/L (04/28/17 1:55 AM) Alk Phos [39-136 unit/L] 0.3 mg/dL (04/29/17 5:52 AM) 0.8 mg/dL (04/28/17 1:55 AM) Bili Total [0.2-1.3 mg/dL] 112 unit/L (04/28/17 1:55 AM) Lipase Lvl [73-393 unit/L] 1Result Comment: The eGFR is calculated using [...] be mul tiplied by the estimated BMI. 3Result Comment: The eGFR is calculated using the [...] be mul tiplied by the estimated BMI. URINE CHEM 1 2 3 Most recent to oldest [Reference Range]: Negative (04/28/17 1:55 AM) U Preg [Negative] URINE AND STOOL 1 2 3 Most recent to oldest [Reference Range]: Marked *ABN* (04/28/17 1:55 AM) UA Turbidity [Clear] Therese *NA* (04/28/17 1:55 AM) UA Color 5.0 (04/28/17 1:55 AM) UA pH [5.0-8.0] 1.029 (04/28/17 1:55 AM) UA Spec Grav [<=1.030] Negative mg/dL *NA* (04/28/17 1:55 AM) UA Glucose [Negative mg/dL] Negative (04/28/17 1:55 AM) UA Blood [Negative] Trace mg/dL *ABN* (04/28/17 1:55 AM) UA Ketones [Negative mg/dL] 100 mg/dL *ABN* (04/28/17 1:55 AM) UA Protein [Negative mg/dL] 2.0 mg/dL *HI* (04/28/17 1:55 AM) UA Urobilinogen [0.1-1.0 mg/dL] Small *ABN* (04/28/17 1:55 AM) UA Bili [Negative] Trace *ABN* (04/28/17 1:55 AM) UA Leuk Est [Negative] Negative (04/28/17 1:55 AM) UA Nitrite [Negative] 13 /HPF *HI* (04/28/17 1:55 AM) UA WBC [0-5 /HPF] 4 /HPF *HI* (04/28/17 1:55 AM) UA RBC [0-2 /HPF] Moderate /HPF *ABN* (04/28/17 1:55 AM) UA Bacteria [None Seen /HPF] Many /LPF *ABN* (04/28/17 1:55 AM) UA Sq Epi [Few /LPF] 27 /LPF *HI* (04/28/17 1:55 AM) UA Hyal Cast [0-2 /LPF] Many /LPF *ABN* (04/28/17 1:55 AM) UA Mucus [None Seen /LPF] 4 /LPF *HI* (04/28/17 1:55 AM) UA WBC Cast [<=0 /LPF] HEMATOLOGY 1 2 3 Most recent to oldest [Reference Range]: 6.5 K/CMM (04/30/17 4:48 AM) 5.1 K/CMM (04/29/17 5:52 AM) 12.5 K/CMM *HI* (04/28/17 1:55 AM) WBC [3.7-10.4 K/CMM] 3.92 M/CMM *LOW* (04/30/17 4:48 AM) 4.00 M/CMM *LOW* (04/29/17 5:52 AM) 5.44 M/CMM *HI* (04/28/17 1:55 AM) RBC [4.20-5.40 M/CMM] 12.0 g/dL (04/30/17 4:48 AM) 12.1 g/dL (04/29/17 5:52 AM) 16.1 g/dL *HI* (04/28/17 1:55 AM) Hgb [12.0-16.0 g/dL] 34.3 % *LOW* (04/30/17 4:48 AM) 35.1 % *LOW* (04/29/17 5:52 AM) 46.7 % (04/28/17 1:55 AM) Hct [36.0-48.0 %] 87.4 fL (04/30/17 4:48 AM) 87.8 fL (04/29/17 5:52 AM) 85.7 fL (04/28/17 1:55 AM) MCV [80.0-98.0 fL] 30.7 pg (04/30/17 4:48 AM) 30.2 pg (04/29/17 5:52 AM) 29.7 pg (04/28/17 1:55 AM) MCH [27.0-31.0 pg] 35.1 g/dL (04/30/17 4:48 AM) 34.4 g/dL (04/29/17 5:52 AM) 34.6 g/dL (04/28/17 1:55 AM) MCHC [32.0-36.0 g/dL] 13.1 % (04/30/17 4:48 AM) 12.9 % (04/29/17 5:52 AM) 12.9 % (04/28/17 1:55 AM) RDW [11.5-14.5 %] 7.5 fL (04/30/17 4:48 AM) 8.2 fL (04/29/17 5:52 AM) 8.1 fL (04/28/17 1:55 AM) MPV [7.4-10.4 fL] 243 K/CMM (04/30/17 4:48 AM) 251 K/CMM (04/29/17 5:52 AM) 392 K/CMM (04/28/17 1:55 AM) Platelet [133-450 K/CMM] 50.2 % (04/30/17 4:48 AM) 30.8 % *LOW* (04/29/17 5:52 AM) 42.8 % *LOW* (04/28/17 1:55 AM) Segs [45.0-75.0 %] 40.7 % *HI* (04/30/17 4:48 AM) 56.7 % *HI* (04/29/17 5:52 AM) 46.6 % *HI* (04/28/17 1:55 AM) Lymphocytes [20.0-40.0 %] 8.6 % (04/30/17 4:48 AM) 10.1 % (04/29/17 5:52 AM) 9.5 % (04/28/17 1:55 AM) Monocytes [2.0-12.0 %] 0.3 % (04/30/17 4:48 AM) 1.8 % (04/29/17 5:52 AM) 0.3 % (04/28/17 1:55 AM) Eosinophils [0.0-4.0 %] 0.2 % (04/30/17 4:48 AM) 0.6 % (04/29/17 5:52 AM) 0.8 % (04/28/17 1:55 AM) Basophils [0.0-1.0 %] 3.3 K/CMM (04/30/17 4:48 AM) 1.6 K/CMM (04/29/17 5:52 AM) 5.4 K/CMM (04/28/17 1:55 AM) Segs-Bands # [1.5-8.1 K/CMM] 2.7 K/CMM (04/30/17 4:48 AM) 2.9 K/CMM (04/29/17 5:52 AM) 5.8 K/CMM *HI* (04/28/17 1:55 AM) Lymphocytes # [1.0-5.5 K/CMM] 0.6 K/CMM (04/30/17 4:48 AM) 0.5 K/CMM (04/29/17 5:52 AM) 1.2 K/CMM *HI* (04/28/17 1:55 AM) Monocytes # [0.0-0.8 K/CMM] 0.1 K/CMM (04/29/17 5:52 AM) Eosinophils # [0.0-0.5 K/CMM] 0.1 K/CMM (04/28/17 1:55 AM) Basophils # [0.0-0.2 K/CMM] Immunizations No data available for this section [...] 04/28/17 Assessment and Plan Extracted from: Title: Discharge Summary * Author: Raúl Payan MD Date: 04/30/17 Discharge Plan Discharge Summary Plan Discharge Status: improved. Discharge instructions given: to patient. Discharge disposition: discharge to home self care. Prescriptions: continue same medications, written and given to patient. Diagnosis UTI Nephrolithiasis status post cystoscopy and stent placement Gastroenteritis . Course Improving. Education and Follow-up Counseled: patient. Extracted from: Title: Clinical Document Author: Phu Martinez Date: 04/30/17 Progress Note - Daily [facility] Completed: Apr, 08:32 by Phu Martinez MD RM: [id number] [id number], SE [id number], [id number] (: 1975) F Attending: Raúl Payan MDPhone: Service: Internal Medicine Reason for Admission: INTRACTABLE VOMITING, UTI Working DRG: None Documented Code status: Full Code [Ordered]Current diet: Isolation: No Isolation/Standard Precautions Allergies: NKDA SUBJECTIVE Patient stable with complaint of incontinence. Pain is well-controlled. OBJECTIVE AVSS 24hr Labs 04/30 0448 Glucose Lvl92 BUN8 Creatinine Lvl0.73 Sodium Tke153 Potassium Lvl3.3 L Chloride Inq667 CO225 AGAP14.3 Calcium Lvl8.0 L aGNL846 Magnesium Lvl1.9 Phosphorus2.6 WBC6.5 RBC3.92 L Hgb12.0 Hct34.3 L MCV87.4 MCH30.7 MCHC35.1 RDW13.1 Heepflby413 MPV7.5 Segs50.2 Monocytes8.6 Rwonpztqlzb89.7 H Eosinophils0.3 Basophils0.2 Segs-Bands #3.3 Lymphocytes #2.7 Monocytes #0.6 Bentley still necessary (Yes/No): Line still necessary (Yes/No): VitalsTmp(F)CipmpLXBAXkX4CCN9 04/30 07:0097.827554/606396--- 04/30 03:5598.043016/848759--- 04/30 00:0098.002657/341548--- 04/29 15:3997.853223/1162484--- 04/29 14:41----86733/95--91--- 24 Hr Tmax: 98.3F (36.83c) at 04/30 03:55Vital Signs are the last 5 in the past 48 hours. DateWt(kg)Wt(lb)Ht(cm)Ht(in)Method 04/28 90.91 200.80108.10 65.00Estimated 04/27 (initial) 90.91 200.00Estimated 65.10 65.00Stated I&ORecordInOutBal 4hr Tot 863 300 563 4hr Tot 2226 1150 1076 Medications (21) Active Scheduled Meds (3): 04/29/17 cefTRIAXone + sterile water 10 mL (Rocephin + sterile water 10 mL) 1 gm IV PWDM06D 120 ml/hr 04/28/17 docusate 100 mg PO BID 04/28/17 metroNIDAZOLE (Flagyl) 500 mg IVPB ABXQ8H 200 ml/hr Unscheduled Meds: None PRN Meds (9): 04/29/17 acetaminophen-codeine (acetaminophen-codeine #3) 2 tab PO Q4H 04/28/17 acetaminophen-hydrocodone (acetaminophen-hydrocodone 325 mg-5 mg oral tablet) 2 tab PO Q4H 04/29/17 acetaminophen 650 mg PO Q4H 04/29/17 hydromorphone 1 mg PO Q3H 04/29/17 morphine Sulfate 4 mg IV Q4H 04/28/17 ondansetron (Zofran) 4 mg IVP Q4H 04/29/17 ondansetron 4 mg IVP Q6H 04/29/17 oxybutynin 5 mg PO TID 04/28/17 sodium chloride (Saline Flush 0.9%) 10 ml IVP PRN One Time Meds (8): (Completed) dexamethasone (dexamethasone (ANES)) IV ONCE (Completed) fentaNYL (fentaNYL (ANES)) IV ONCE (Completed) lidocaine (lidocaine (ANES)) IV ONCE (Completed) midazolam (midazolam (ANES)) IV ONCE 04/29/17 (Completed) morphine Sulfate 4 mg IVP ONCE (Completed) ondansetron (ondansetron (ANES)) IV ONCE 04/30/17 (Ordered) potassium chloride 40 mEq PO ONCE (Completed) propofol (propofol (ANES)) IV ONCE Continuous Infusions (1): 04/29/17 Lactated Ringers Injection IV 1,000 mL 1,000 mL 100 ml/hr ASSESSMENT & EXAM Exam stable Distal coil of stent outside of urethral meatus; this is the cause of her incontinence therefore stent removed without event. PLAN & TREATMENT 1. OK with Urology to discharge the patient to home. May need script for pain meds and Oxybutynin. DIAGNOSES & PROBLEMS Ready for Discharge (Yes/No)? TEACHING ATTESTATION
[2018-06-29] MEDS ORDERED: KETOROLAC TROMETHAMINE 30 MG/ML VIAL IV ONE (20:16)
[2018-06-29] MEDS ORDERED: SODIUM CHLORIDE 0.9% 1000ML 1,000 ML IV STA (20:16)
[2018-06-29] MEDS ORDERED: ONDANSETRON HCL INJ 2MG/ML 2ML 2 MG/ML VIAL IV ONE (20:32)
[2018-06-29 21:05] LABS: BASOPHILS % 0.3 % (0.0-1.0); EOSINOPHILS # (AUTO) 0.1 (0.0-0.4); EOSINOPHILS % 0.8 % (0.0-6.0); HEMATOCRIT 37.4 % (34.2-44.1); HEMOGLOBIN 13.1 g/dL (12.0-16.0); LYMPHOCYTES # (AUTO) 2.5 (1.0-3.2); LYMPHOCYTES % 21.3 % (18.0-39.1); MEAN CORPUSCULAR HEMOGLOBIN 30.8 pg (28-32); MONOCYTES # (AUTO) 0.6 (0.2-0.8); MONOCYTES % 5.1 % (4.4-11.3); NEUTROPHILS # (AUTO) 8.5 (2.1-6.9); NEUTROPHILS % 72.1 % (38.7-80.0); PLATELET COUNT 288 x10e3/uL (140-360); RED BLOOD COUNT 4.25 x10e6/uL (3.6-5.1); RED CELL DISTRIBUTION WIDTH 12.7 % (11.7-14.4)
[2018-06-29 21:14] LABS: CLARITY,URINE CLEAR (CLEAR); COLOR,URINE YELLOW (YELLOW); LEUKOCYTE ESTERASE ,URINE NEGATIVE (NEGATIVE); NITRITE,URINE NEGATIVE (NEGATIVE); PROTEIN,URINE DIPSTICK NEGATIVE (NEGATIVE)
[2018-06-29 21:15] LABS: BILIRUBIN,URINE NEGATIVE (NEGATIVE); KETONES,URINE NEGATIVE (NEGATIVE); URINE UROBILINOGEN 0.2 mg/dL (0.2 - 1)
[2018-06-29 21:20] LABS: ALANINE AMINOTRANSFERASE 32 IU/L (0-55); ALBUMIN 4.7 g/dL (3.5-5.0); ALBUMIN/GLOBULIN RATIO 1.6 (0.8-2.0); ALKALINE PHOSPHATASE 94 IU/L (40-150); ANION GAP 14.5 mmol/L (8-16); BLOOD UREA NITROGEN 18 mg/dL (7-26); BUN/CREATININE RATIO 21 (6-25); CALCIUM 10.3 mg/dL (8.4-10.2); CARBON DIOXIDE 24 mmol/L (22-29); CHLORIDE 107 mmol/L (98-107); CREATININE, SERUM 0.84 mg/dL (0.57-1.11); EST GLOMERULAR FILTRATION RATE > 60 ML/MIN (60-); GLUCOSE 113 mg/dL (74-118); LIPASE 50 U/L (8-78); POTASSIUM 3.5 mmol/L (3.5-5.1); SODIUM 142 mmol/L (136-145)
[2018-06-29 21:25] LABS: CALCIUM OXALATE CRYSTALS,UR FEW (FEW); EPITHELIAL CELLS,URINE MANY /LPF; RBC,URINE 0-5 /HPF (0-5); WBC,URINE (MAN) 0-5 /HPF (0-5)
--- NOTE | 2018-06-29 21:43 | Diagnostic Imaging Report ---
EXAM: CT Abdomen and Pelvis WITHOUT contrast INDICATION: ^STONE PROTOCOL ^[id number] ^2109 ^Y COMPARISON: None. TECHNIQUE: Abdomen and pelvis were scanned utilizing a multidetector helical scanner from the lung base to the pubic symphysis without administration of IV contrast. Absence of intravenous contrast decreases sensitivity for detection of focal lesions and vascular pathology. Coronal and sagittal reformations were obtained. Routine protocol was performed. IV CONTRAST: None ORAL CONTRAST: Water COMPLICATIONS: None RADIATION DOSE: Total DLP: 472.76 mGy*cm Estimated effective dose: (DLP x 0.015 x size factor) mSv CTDIvol has been reviewed. It is below the limits set by the Radiation Protocol Committee (RPC). FINDINGS: LINES and TUBES: None. LOWER THORAX: Unremarkable HEPATOBILIARY: Unenhanced liver is unremarkable. No biliary ductal dilation. GALLBLADDER: Surgically absent. SPLEEN: No splenomegaly. PANCREAS: No focal masses or ductal dilatation. ADRENALS: No adrenal nodules KIDNEYS/URETERS: No hydronephrosis. Limited for evaluation of renal parenchyma without intravenous contrast. Punctate bilateral midpole calculi (series 3, image 64 ). GI TRACT: No abnormal distention, wall thickening, or evidence of bowel obstruction. Appendix is normal. PELVIC ORGANS/BLADDER: Bladder is not distended, limiting evaluation. Hysterectomy. LYMPH NODES: No lymphadenopathy. VESSELS: Unremarkable. PERITONEUM / RETROPERITONEUM: No free air or fluid. BONES: Unremarkable. SOFT TISSUES: Unremarkable. IMPRESSION: Punctate bilateral renal midpole calculi. No evidence of obstructive urolithiasis. Signed by: Dr. New Ibanez MD on 06/29/2018 9:40 PM
[2018-06-29] MEDS ORDERED: PROMETHAZINE HCL (IM) 25 MG/ML VIAL IM ONE (22:00)
[2018-06-29 22:18] LABS: BENZODIAZEPINES SCREEN,URINE POSITIVE (NEGATIVE); PHENCYCLIDINE SCREEN,URINE NEGATIVE (NEGATIVE)
[2018-06-29 22:20] LABS: AMPHETAMINES SCREEN,URINE POSITIVE (NEGATIVE)
[2018-06-29 22:45] VITALS: BP 140/94
== END 2018-06-29 22:47 | disposition home or self-care (01) ==
LOC: ER 19:36
DX: S33.5XXA Sprain of ligaments of lumbar spine, initial encounter (principal); M54.5 Low back pain; Z96.0 Presence of urogenital implants; Z87.442 Personal history of urinary calculi
CPT/HCPCS: 36415; 74176; 80053; 80307; 81001; 81025; 83690; 85025; 87086; 96374; 96375; 99283; J1885; J2405; J2550; J7030